=== PATIENT | female | born 1980 | race Two or more races ===

== ENCOUNTER 2017-07-22 11:17 | Emergency (ER) | payer MEDICAID, OTHER ==
[2017-07-22] MEDS: KETOROLAC 60 MG/2 ML VIAL (J1885) IM (12:36)
[2017-07-22] MEDS: diazePAM 5 MG TAB PO (12:36)
== END 2017-07-22 13:15 | disposition home or self-care (01) ==
LOC: M ED 11:17
DX: M62.838 Other muscle spasm (principal); F17.210 Nicotine dependence, cigarettes, uncomplicated
CPT/HCPCS: J1885

== ENCOUNTER → 2017-08-12 | Outpatient (CLI) | payer OTHER | LOC: M WHC 08:53 | DX: D25.1 Intramural leiomyoma of uterus (principal); R10.2 Pelvic and perineal pain | CPT/HCPCS: 76830 ==

== ENCOUNTER → 2017-08-12 | Outpatient (REF) | payer OTHER ==
[2017-08-12 14:37] LABS: CHLAMYDIA DNA AMPLIFICATION NEGATIVE (NEGATIVE); GC DNA AMPLIFICATION NEGATIVE (NEGATIVE)
== END ==
LOC: M SFHCWAGY 08:51
DX: Z12.4 Encounter for screening for malignant neoplasm of cervix (principal); Z11.3 Encounter for screening for infections with a predominantly sexual mode of transmission
CPT/HCPCS: 87591

== ENCOUNTER → 2018-03-02 | Outpatient (CLI) | payer OTHER | LOC: M PAIN 08:45 | DX: M51.16 Intervertebral disc disorders with radiculopathy, lumbar region (principal); M21.70 Unequal limb length (acquired), unspecified site; F17.210 Nicotine dependence, cigarettes, uncomplicated; Z79.1 Long term (current) use of non-steroidal anti-inflammatories (NSAID); Z87.820 Personal history of traumatic brain injury | CPT/HCPCS: G0463 ==

== ENCOUNTER → 2018-03-16 | Outpatient (CLI) | payer OTHER ==
[~2018-03-16] MED LIST: ISOVUE-M 300 61% 15ML VIAL (Q9967) As Ordered; LIDOCAINE 1% SDV INJ 30 ML VIAL As Ordered; diazePAM 5 MG TAB As Ordered; methylPREDNISolone SUSP 40 MG/ML (DEPO-medrol) VIAL (J1030) As Ordered; oxyCODONE 5MG TAB As Ordered
== END ==
LOC: M PAIN 08:45
DX: M51.16 Intervertebral disc disorders with radiculopathy, lumbar region (principal); F17.210 Nicotine dependence, cigarettes, uncomplicated; M77.32 Calcaneal spur, left foot; M75.32 Calcific tendinitis of left shoulder; B07.0 Plantar wart; J34.2 Deviated nasal septum
CPT/HCPCS: J1030

== ENCOUNTER 2018-04-13 07:06 | Outpatient (RCR) | payer OTHER | END 2018-04-25 | LOC: M PT 07:06 | DX: Z51.89 Encounter for other specified aftercare (principal); M51.16 Intervertebral disc disorders with radiculopathy, lumbar region; M54.16 Radiculopathy, lumbar region; M21.70 Unequal limb length (acquired), unspecified site; M47.816 Spondylosis without myelopathy or radiculopathy, lumbar region | CPT/HCPCS: 97163 ==

== ENCOUNTER 2018-04-27 07:30 | Outpatient (RCR) | payer OTHER | END 2018-05-26 | LOC: M PT 07:30 | DX: Z51.89 Encounter for other specified aftercare (principal); M51.16 Intervertebral disc disorders with radiculopathy, lumbar region; M21.70 Unequal limb length (acquired), unspecified site; M47.816 Spondylosis without myelopathy or radiculopathy, lumbar region; M54.16 Radiculopathy, lumbar region | CPT/HCPCS: 97010 ==

== ENCOUNTER → 2018-04-30 | Outpatient (CLI) | payer OTHER | LOC: M PAIN 15:00 | DX: M51.16 Intervertebral disc disorders with radiculopathy, lumbar region (principal); M46.1 Sacroiliitis, not elsewhere classified; F17.210 Nicotine dependence, cigarettes, uncomplicated; J34.2 Deviated nasal septum; M77.32 Calcaneal spur, left foot | CPT/HCPCS: G0463 ==

== ENCOUNTER → 2018-05-17 | Outpatient (CLI) | payer OTHER ==
[~2018-05-17] MED LIST changes: +BUPIVACAINE HCL 0.25% 30 ML VIAL As Ordered; +TRIAMCINOLONE ACETONIDE SUSP 40 MG/ML VIAL (J3301) As Ordered; -methylPREDNISolone SUSP 40 MG/ML (DEPO-medrol) VIAL (J1030) As Ordered
== END ==
LOC: M PAIN 10:45
DX: G89.29 Other chronic pain (principal); M46.1 Sacroiliitis, not elsewhere classified; M53.88 Other specified dorsopathies, sacral and sacrococcygeal region; F17.210 Nicotine dependence, cigarettes, uncomplicated; Z79.899 Other long term (current) drug therapy; Z87.820 Personal history of traumatic brain injury; Z87.09 Personal history of other diseases of the respiratory system
CPT/HCPCS: J3301

== ENCOUNTER → 2018-06-04 | Outpatient (CLI) | payer OTHER | LOC: M PAIN 09:00 | DX: M51.16 Intervertebral disc disorders with radiculopathy, lumbar region (principal); M46.1 Sacroiliitis, not elsewhere classified; F17.210 Nicotine dependence, cigarettes, uncomplicated; J34.2 Deviated nasal septum; M77.32 Calcaneal spur, left foot; M75.32 Calcific tendinitis of left shoulder; B07.0 Plantar wart; Z79.899 Other long term (current) drug therapy | CPT/HCPCS: G0463 ==

== ENCOUNTER → 2018-10-19 | Outpatient (CLI) | payer OTHER ==
[~2018-10-19] MED LIST changes: -BUPIVACAINE HCL 0.25% 30 ML VIAL As Ordered; -ISOVUE-M 300 61% 15ML VIAL (Q9967) As Ordered; -LIDOCAINE 1% SDV INJ 30 ML VIAL As Ordered; +NAPR250T4 PO; -TRIAMCINOLONE ACETONIDE SUSP 40 MG/ML VIAL (J3301) As Ordered; +VALI5TAB PO; -diazePAM 5 MG TAB As Ordered; -oxyCODONE 5MG TAB As Ordered
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
== END ==
LOC: M PAIN 10:00
PROVIDERS: ATTEND Nurse Practitioner Family
DX: M51.16 Intervertebral disc disorders with radiculopathy, lumbar region (principal); M47.816 Spondylosis without myelopathy or radiculopathy, lumbar region; M46.1 Sacroiliitis, not elsewhere classified; F17.210 Nicotine dependence, cigarettes, uncomplicated; Z79.899 Other long term (current) drug therapy; Z87.820 Personal history of traumatic brain injury

== ENCOUNTER 2018-12-08 16:44 | Emergency (ER) | payer OTHER ==
[~2018-12-08] VITALS: Ht 160 cm; Wt 99.1 kg
[2018-12-08 16:44] VITALS: BP 117/69
[2018-12-08] MEDS ORDERED: GABA-843 (16:52)
[2018-12-08] MEDS ORDERED: ADACEL/BOOSTRIX VACCINE (DIPHTH/PERTUSS/ACELL/TETANUS)0.5ML SYR (90715) IM ONE (17:15)
== END 2018-12-08 17:37 | disposition home or self-care (01) ==
LOC: M ED 16:44
DX: S91.331A Puncture wound without foreign body, right foot, initial encounter (principal); W45.0XXA Nail entering through skin, initial encounter; Y92.099 Unspecified place in other non-institutional residence as the place of occurrence of the external cause; Y93.9 Activity, unspecified; Y99.9 Unspecified external cause status; M51.86 Other intervertebral disc disorders, lumbar region; Z72.0 Tobacco use; Z79.899 Other long term (current) drug therapy

== ENCOUNTER 2020-03-23 13:36 | Emergency (ER) | payer OTHER ==
[~2020-03-23] VITALS: Ht 160 cm; Wt 95.0 kg
[~2020-03-23 13:36] MED LIST changes: +GABA-843
[2020-03-23] MEDS ORDERED: NAPR220C14 PO (13:43)
[2020-03-23] MEDS ORDERED: VENTAER INH (14:48)
[2020-03-23] MEDS ORDERED: BENZ200C70 PO (14:48)
[2020-03-23] MEDS ORDERED: MUCI600T31 PO (14:48)
[2020-03-23] MEDS ORDERED: AUGM875T28 PO (14:48)
[2020-03-23 15:35] VITALS: BP 134/90
== END 2020-03-23 15:40 | disposition home or self-care (01) ==
LOC: M ED 13:36
DX: H66.001 Acute suppurative otitis media without spontaneous rupture of ear drum, right ear (principal); J20.9 Acute bronchitis, unspecified; F17.200 Nicotine dependence, unspecified, uncomplicated

== ENCOUNTER 2020-10-01 11:23 | Emergency (ER) | payer OTHER ==
[~2020-10-01] VITALS: Ht 160 cm; Wt 98.3 kg
[~2020-10-01 11:23] MED LIST changes: +AUGM875T28 PO; +BENZ200C70 PO; +GABA-282; -GABA-843; +MUCI600T31 PO; +NAPR-849 PO; +NAPR220C14 PO; -NAPR250T4 PO; +VENTAER INH
[2020-10-01 13:10] LABS: BASO # 0.1 10^3/uL (0.0-0.2); BASO % 0.8 % (0.0-1.0); EOS # 0.1 10^3/uL (0.0-0.5); EOS % 1.6 % (0.0-3.0); HEMATOCRIT 38.5 % (36.0-47.0); HEMOGLOBIN 12.4 g/dl (12.0-15.5); LYMPH # 1.8 10^3/uL (1.5-5.0); LYMPH % 20.4 % (24.0-44.0); MEAN CORPUSCULAR HGB CONC 32.2 g/dl (32.0-36.5); MEAN CORPUSCULAR VOLUME 93.2 fl (80.0-96.0); MONO # 0.7 10^3/uL (0.0-0.8); MONO % 7.6 % (2.0-8.0); NEUTROPHILS # 6.2 10^3/uL (1.5-8.5); NEUTROPHILS % 69.3 % (36.0-66.0); PLATELET COUNT, AUTOMATED 335 10^3/uL (150-450); RED BLOOD COUNT 4.13 10^6/uL (4.00-5.40); WHITE BLOOD COUNT 8.9 10^3/uL (4.0-10.0)
[2020-10-01] MEDS ORDERED: KETOROLAC TROMETHAMINE 10 MG TAB PO ONE (13:25)
--- NOTE | 2020-10-01 13:28 | REP ---
INDICATION: R flank pain, ro renal stone COMPARISON: None TECHNIQUE: Axial noncontrast images from the lung bases to the pubic symphysis with coronal and sagittal reformations. This CT examination was performed using the following dose reduction techniques: Automated exposure control, adjustment of mA and/or kv according to the patient's size, and use of iterative reconstruction technique. FINDINGS: Lung bases are clear. Visualized heart and pericardium normal. Liver, spleen, pancreas, gallbladder, bilateral adrenal glands and kidneys are normal. Specifically, no perinephric stranding, hydroureteronephrosis or obstructing ureteral calculus identified. A single 1 mm calculus in the right kidney cannot be excluded (series 201; image 60). The enteric system is unremarkable and without obstruction or acute inflammatory process. Normal terminal ileum and appendix identified in the right lower quadrant. Diverticulosis is appreciated without obvious acute diverticulitis. Stable fat containing periumbilical hernia noted. Pelvis demonstrates normal bladder and age-appropriate uterus/adnexa. Innumerable calcifications in the pelvis are similar to prior examination and likely represent phleboliths. No ascites. No free air. No adenopathy. No focal inflammatory stranding. Abdominal aorta without aneurysm. Musculoskeletal structures are intact and without acute osseous abnormality. IMPRESSION: 1. No obvious acute abdominopelvic pathology appreciated. 2. Diverticulosis without obvious acute diverticulitis. 3. Innumerable calcifications in the pelvis likely represent phleboliths. <Electronically signed by Fernandez Turner > 10/01/20 [id number]
[2020-10-01 13:49] LABS: ALBUMIN 3.7 GM/DL (3.2-5.2); ALT/SGPT 16 U/L (12-78); BILIRUBIN,DIRECT < 0.1 MG/DL (0.0-0.2); BILIRUBIN,TOTAL 0.1 MG/DL (0.2-1.0); LIPASE 96 U/L (73-393); TOTAL PROTEIN 6.9 GM/DL (6.4-8.2)
[2020-10-01 14:00] VITALS: BP 129/83
== END 2020-10-01 14:02 | disposition home or self-care (01) ==
LOC: M ED 11:23
DX: K57.30 Diverticulosis of large intestine without perforation or abscess without bleeding (principal); J45.909 Unspecified asthma, uncomplicated; Z87.442 Personal history of urinary calculi; F17.200 Nicotine dependence, unspecified, uncomplicated; Z79.899 Other long term (current) drug therapy

== ENCOUNTER 2020-10-05 21:26 | Emergency (ER) | payer OTHER ==
[~2020-10-05] VITALS: Ht 160 cm; Wt 97.7 kg
[2020-10-06] MEDS ORDERED: KETOROLAC 60MG 2ML VIAL IM ONE (00:25)
[2020-10-06] MEDS ORDERED: diazePAM 10 MG TAB PO ONE (00:25)
[2020-10-06] MEDS ORDERED: LIDOCAINE 5% (LIDODERM) PATCH TD ONE (00:25)
[2020-10-06] MEDS ORDERED: ASPE4PAD TOP (00:27)
[2020-10-06] MEDS ORDERED: ROBA750T4 PO (00:27)
[2020-10-06] MEDS ORDERED: NAPR-837 PO (00:27)
[2020-10-06 00:55] VITALS: BP 120/86
[2020-10-06] MEDS ORDERED: **NOTE PATIENT COMMENT** MISC XX ONE (12:30)
== END 2020-10-06 01:06 | disposition home or self-care (01) ==
LOC: M ED 21:26
DX: M54.6 Pain in thoracic spine (principal); J45.909 Unspecified asthma, uncomplicated; Z79.899 Other long term (current) drug therapy
CPT/HCPCS: 96372; 99283; J1885

== ENCOUNTER → 2020-10-17 | Outpatient (CLI) | payer SELFPAY ==
[~2020-10-17] MED LIST changes: +ASPE4PAD TOP; +NAPR-837 PO; +ROBA750T4 PO
== END ==
LOC: M LABSMTC 13:16
PROVIDERS: ATTEND Pediatrics
DX: Z11.52 Encounter for screening for COVID-19 (principal)

== ENCOUNTER 2021-03-02 18:57 | Inpatient (IN) | payer OTHER ==
[~2021-03-02] VITALS: Ht 160 cm; Wt 91.9 kg
[2021-03-02 20:20] LABS: BASO % 0.2 % (0.0-1.0); EOS % 0.1 % (0.0-3.0); HEMATOCRIT 38.8 % (36.0-47.0); HEMOGLOBIN 12.9 g/dl (12.0-15.5); LYMPH # 1.1 10^3/uL (1.5-5.0); LYMPH % 5.5 % (24.0-44.0); MEAN CORPUSCULAR HEMOGLOBIN 31.7 pg (27.0-33.0); MEAN CORPUSCULAR HGB CONC 33.2 g/dl (32.0-36.5); MEAN CORPUSCULAR VOLUME 95.3 fl (80.0-96.0); MONO # 1.2 10^3/uL (0.0-0.8); MONO % 6.3 % (2.0-8.0); NEUTROPHILS # 17.1 10^3/uL (1.5-8.5); NEUTROPHILS % 87.4 % (36.0-66.0); PLATELET COUNT, AUTOMATED 305 10^3/uL (150-450); RED BLOOD COUNT 4.07 10^6/uL (4.00-5.40); WHITE BLOOD COUNT 19.5 10^3/uL (4.0-10.0)
[2021-03-02 20:36] LABS: ALBUMIN 3.9 GM/DL (3.2-5.2); ALT/SGPT 17 U/L (12-78); BILIRUBIN,DIRECT 0.2 MG/DL (0.0-0.2); BILIRUBIN,TOTAL 0.6 MG/DL (0.2-1.0); BLOOD UREA NITROGEN 13 MG/DL (7-18); CALCIUM LEVEL 9.2 MG/DL (8.5-10.1); CARBON DIOXIDE LEVEL 27 MEQ/L (21-32); CHLORIDE LEVEL 104 MEQ/L (98-107); CREATININE FOR GFR 0.68 MG/DL (0.55-1.30); GLOMERULAR FILTRATION RATE > 60.0 (>58); GLUCOSE, FASTING 115 MG/DL (70-100); LIPASE 41 U/L (73-393); POTASSIUM SERUM 3.4 MEQ/L (3.5-5.1); SODIUM LEVEL 138 MEQ/L (136-145); TOTAL PROTEIN 7.5 GM/DL (6.4-8.2)
[2021-03-02 20:51] LABS: HCG, SERUM QUALITATIVE NEGATIVE (NEGATIVE)
[2021-03-02] MEDS ORDERED: MORPHINE 4 MG/ML 1ML VIAL/SYRINGE (J2270) IV ONE (21:55)
[2021-03-02] MEDS ORDERED: ONDANSETRON 4MG/2ML VIAL IV ONE (21:55)
--- NOTE | 2021-03-02 21:58 | REPVR ---
PROCEDURE INFORMATION: Exam: CT Abdomen And Pelvis Without Contrast Exam date and time: 03/02/2021 9:19 PM Age: 40 years old Clinical indication: Abdominal pain; Additional info: Lower abdominal pain TECHNIQUE: Imaging protocol: Computed tomography of the abdomen and pelvis without contrast. Axial, coronal and sagittal reformatted images were created and reviewed. Radiation optimization: All CT scans at this facility use at least one of these dose optimization techniques: automated exposure control; mA and/or kV adjustment per patient size (includes targeted exams where dose is matched to clinical indication); or iterative reconstruction. COMPARISON: CT ABD PELVIS W/O CONTRAST 10/01/2020 1:01 PM FINDINGS: Lungs: Right lower lobe calcified granuloma. Liver: Unremarkable. Gallbladder and bile ducts: No radiodense gallstones. No biliary ductal dilatation. Pancreas: Unremarkable. Spleen: Unremarkable. Adrenal glands: Normal. No mass. Kidneys and ureters: Nonobstructing right renal calculus. No hydronephrosis. Stomach and bowel: Focal area of wall thickening and associated pericolonic stranding in the sigmoid colon in a region containing multiple diverticula. No obstruction. No pneumatosis. Appendix: Normal. Intraperitoneal space: Small amount of loculated fluid and extraluminal gas adjacent to the inflamed segment of sigmoid colon, consistent with perforation. 4.7 x 2.2 cm loculated air-fluid collection along the anterior aspect of the left psoas muscle belly (axial image 104). Vasculature: Unremarkable. No aneurysm. Lymph nodes: No pathologically enlarged lymph nodes. Urinary bladder: Unremarkable as visualized. Reproductive: Unremarkable. Bones/joints: No acute osseous abnormality. Mild degenerative changes. Soft tissues: Grossly unremarkable. IMPRESSION: 1. Perforated sigmoid diverticulitis with questionable small developing diverticular abscess, as described above. 2. Additional findings, as above. Electronically signed by: Buzz Mcfarland On 03/02/2021 21:58:28 PM
[2021-03-02] MEDS ORDERED: HOME MED LIST COMPLETE! XX SCH (22:30)
[2021-03-02] MEDS ORDERED: KETOROLAC 30 MG/ML 1ML VIAL IV PRN (22:50)
[2021-03-02] MEDS ORDERED: ONDANSETRON 4MG/2ML VIAL IV PRN (22:50)
--- NOTE | 2021-03-02 22:54 | HPEPDOC ---
[facility] Medical History & Physical Date of Admission Mar 02, 2021 Date of Service: Mar 02, 2021 Attending Physician: GISELLE LIND MD History and Physical CHIEF COMPLAINT: [40 y/o female c/o lower abdominal pain x4 days] HISTORY OF PRESENT ILLNESS: [This is a 40 y/o female with a pmh of divertic ulosis who presents to the ED with a cc of lower abdominal pain that has been worsening for 4 days. Patient states that her pain seems to be worse with food and has subsequently developed a very poor appetite and has not been drinking much either. Patient states that she eventually developed vomiting but this has subsided some. Patient states that she has had episodes of abdominal pain in the past, but never this severe, and those past episodes were typically self limiting. Patient states that she has also experienced some fevers and chills on and off. Patient, at the time of my exam, denies any cough, chest pain, sob, wheezing, diarrhea, constipation, pedal edema. CT imaging performed in the ED shows diverticulitis with perforation and possible forming abscess.] PAST MEDICAL HISTORY: 1. [See HPI PAST SURGICAL HISTORY: 1. [C Section]. 2. [Tubal ligation]. 3. [Tonsillectomy]. SOCIAL HISTORY: Tobacco use:[Current 1/2 ppd smoker] ETOH: [Denies] Illicit drug use: [Denies] FAMILY HISTORY: Reviewed - none pertinent ALLERGIES: Please see below. REVIEW OF SYSTEMS: CONSTITUTIONAL: [Admits to subjective fevers, chills]. HEENT: [Denies uri sx]. CARDIOVASCULAR: [Denies chest pain, palpitations]. RESPIRATORY: [Denies sob, wheezing]. GASTROINTESTINAL: [See HPI]. GENITOURINARY: [Denies dysuria]. SKIN: [Denies rash]. MUSCULOSKELETAL: [Denies acute joint/back pain]. NEUROLOGICAL: [Denies syncope, paresthesias]. ENDOCRINE: [Denies hx of DM]. HEMATOLOGIC/LYMPHATIC: [Denies easy bruising]. HOME MEDICATIONS: Please see below. PHYSICAL EXAMINATION: VITAL SIGNS: Please see below. GENERAL APPEARANCE: [This is a 40 y/o female who is resting in bed. She does not appear to be in any acute distress.]. HEENT: [No mass or lesion. EOMI. No scleral icterus. Nares patent. Oral mucosa moist]. CARDIOVASCULAR: [Regular rate, rhythm. No murmurs, rubs, gallops]. LUNGS: [Good air flow b/l. No wheezing, rales, rhonchi]. ABDOMEN: [Soft, tender to RLQ and LLQ.]. MUSCULOSKELETAL: [No joint deformity]. EXTREMITIES: [No pedal edema appreciated. No overlying skin changes. Pulses intact.]. NEUROLOGICAL: [Speech clear. A+Ox3. No focal deficits]. PSYCHIATRIC: [Mood and affect appear appropriate.]. LABORATORY DATA: See below. IMAGING: [CT Abd/pelvis: FINDINGS: Lungs: Right lower lobe calcified granuloma. Liver: Unremarkable. Gallbladder and bile ducts: No radiodense gallstones. No biliary ductal dilatation. Pancreas: Unremarkable. Spleen: Unremarkable. Adrenal glands: Normal. No mass. Kidneys and ureters: Nonobstructing right renal calculus. No hydronephrosis. Stomach and bowel: Focal area of wall thickening and associated pericolonic stranding in the sigmoid colon in a region containing multiple diverticula. No obstruction. No pneumatosis. Appendix: Normal. Intraperitoneal space: Small amount of loculated fluid and extraluminal gas adjacent to the inflamed segment of sigmoid colon, consistent with perforation. 4.7 x 2.2 cm loculated air-fluid collection along the anterior aspect of the left psoas muscle belly (axial image 104). Vasculature: Unremarkable. No aneurysm. Lymph nodes: No pathologically enlarged lymph nodes. Urinary bladder: Unremarkable as visualized. Reproductive: Unremarkable. Bones/joints: No acute osseous abnormality. Mild degenerative changes. Soft tissues: Grossly unremarkable. IMPRESSION: 1. Perforated sigmoid diverticulitis with questionable small developing diverticular abscess, as described above. 2. Additional findings, as above. ] MICROBIOLOGY: Please see below. ASSESSMENT: [This is a 40 y/o female with a pmh of diverticulosis who presents to the ED with a cc of lower abdominal pain that has been worsening for [address] imaging performed in the ED shows diverticulitis with perforation and possible forming abscess.]. . PLAN: 1. [Diverticulitis with perforation and possible abscess - General surgery, Dr. Silva, was consulted in the emergency department. Assistance is greatly appreciated. - Will keep patient NPO for now for possible procedure - Will give IVF while patient is NPO - Begin zosyn q6 for microbial coverage - Pain control with toradol, morphine - Zofran for nausea - Admit to med surg for tx DVT prophylaxis - mechanical d/t possible procedure]. Vital Signs Vital Signs Date Time Temp Pulse Resp B/P (MAP) Pulse Ox O2 Delivery O2 Flow Rate FiO2 03/02/21 22:27 75 16 98 Room Air 03/02/21 22:02 148/93 03/02/21 18:58 98.1 Laboratory Data Labs 24H Laboratory Tests 2 03/02/21 19:58: Immature Granulocyte % (Auto) 0.5, Neutrophils (%) (Auto) 87.4H, Lymphocytes (%) (Auto) 5.5L, Monocytes (%) (Auto) 6.3, Eosinophils (%) (Auto) 0.1, Basophils (%) (Auto) 0.2, Neutrophils # (Auto) 17.1H, Lymphocytes # (Auto) 1.1L, Monocytes # (Auto) 1.2H, Eosinophils # (Auto) 0.0, Basophils # (Auto) 0.0, Nucleated Red Blood Cells % (auto) 0.0, Urine Color CHARAN, Urine Appearance HAZY, Urine pH 5.0, Urine Specific [place] 1.034, Urine Protein 2+H, Urine Glucose (UA) 1+H, Urine Ketones 1+H, Urine Blood NEGATIVE, Urine Nitrite NEGATIVE, Urine Bilirubin 2+H, Urine Urobilinogen 4.0H, Urine Leukocyte Esterase NEGATIVE, Urine WBC (Auto) 3, Urine RBC (Auto) 7H, Urine Hyaline Casts (Auto) 0, Urine Bacteria (Auto) 1+H, Urine Squamous Epithelial Cells 6, Urine Mucus (Auto) LARGE, Urine Sperm (Auto) , Anion Gap 7L, Glomerular Filtration Rate > 60.0, Calcium Level 9.2, Total Bilirubin 0.6, Direct Bilirubin 0.2, Aspartate Amino Transf (AST/SGOT) 7, Alanine Aminotransferase (ALT/SGPT) 17, Alkaline Phosphatase 88, Total Protein 7.5, Albumin 3.9, Albumin/Globulin Ratio 1.1L, Lipase 41L, Human Chorionic Gonadotropin, Qual NEGATIVE 03/02/21 21:45: POC Lactate (Misc Panel) 0.49 CBC/BMP Laboratory Tests 03/02/21 19:58 Home Medications Scheduled Naproxen Sodium (Aleve) 220 Mg Capsule, 220 MG PO DAILY Allergies Coded Allergies: No Known Allergies (Unverified , 12/08/18) A-FIB/CHADSVASC A-FIB History Current/History of A-Fib/PAF?: No ROSALINE RIOS Mar 02, 2021 22:54
[2021-03-02] MEDS: NS 1,000 ML IV SCH (23:34)
[2021-03-02] MEDS: PIPERACILLIN/TAZOBACTAM SOD 3.375 GM in D5W MINI-BAG PLUS 50 ML IV SCH (23:34)
[2021-03-03 01:04] LABS: RSV AMPLIFICATION NEGATIVE (NEGATIVE)
[2021-03-03 01:25] VITALS: BP 115/66
[2021-03-03] MEDS: PIPERACILLIN/TAZOBACTAM SOD 3.375 GM in D5W MINI-BAG PLUS 50 ML IV SCH ×4 (05:45→23:40)
[2021-03-03] MEDS: MORPHINE 2 MG/ML 1ML VIAL (J2270) IV PRN (05:46)
[2021-03-03 06:00] VITALS: BP 132/69
[2021-03-03 06:54] LABS: HEMATOCRIT 33.8 % (36.0-47.0); HEMOGLOBIN 11.2 g/dl (12.0-15.5); MEAN CORPUSCULAR HEMOGLOBIN 31.6 pg (27.0-33.0); MEAN CORPUSCULAR HGB CONC 33.1 g/dl (32.0-36.5); MEAN CORPUSCULAR VOLUME 95.5 fl (80.0-96.0); PLATELET COUNT, AUTOMATED 274 10^3/uL (150-450); RED BLOOD COUNT 3.54 10^6/uL (4.00-5.40); WHITE BLOOD COUNT 16.4 10^3/uL (4.0-10.0)
[2021-03-03] MEDS: NS 1,000 ML IV SCH (06:57)
[2021-03-03 07:16] LABS: ALBUMIN 2.8 GM/DL (3.2-5.2); ALT/SGPT 12 U/L (12-78); BILIRUBIN,TOTAL 0.6 MG/DL (0.2-1.0); BLOOD UREA NITROGEN 14 MG/DL (7-18); CALCIUM LEVEL 8.4 MG/DL (8.5-10.1); CARBON DIOXIDE LEVEL 22 MEQ/L (21-32); CHLORIDE LEVEL 112 MEQ/L (98-107); GLOMERULAR FILTRATION RATE > 60.0 (>58); GLUCOSE, FASTING 103 MG/DL (70-100); MAGNESIUM LEVEL 2.1 MG/DL (1.8-2.4); POTASSIUM SERUM 3.3 MEQ/L (3.5-5.1); SODIUM LEVEL 139 MEQ/L (136-145); TOTAL PROTEIN 6.4 GM/DL (6.4-8.2)
[2021-03-03] MEDS ORDERED: GLUCAGON INJ 1MG VIAL SC PRN (07:55)
[2021-03-03] MEDS ORDERED: GLUCOSE 4GM CHEW TABLET PO PRN (07:55)
[2021-03-03] MEDS ORDERED: DEXTROSE 50% 50 ML SYRINGE IV PRN (07:55)
[2021-03-03] MEDS ORDERED: KCL 10MEQ/100ML SWI (KRUN) 10 MEQ in IV 1 EA IV SCH (09:00)
[2021-03-03] MEDS: KCL 40MEQ IN D5/0.45NS 1000ML 1,000 ML IV SCH ×3 (09:04→23:25)
[2021-03-03] MEDS: KETOROLAC 30 MG/ML 1ML VIAL IV SCH ×3 (09:54→23:20)
[2021-03-03] MEDS ORDERED: PROMETHAZINE INJ 25 MG/ML VIAL (J2550) IV ONE (10:00)
--- NOTE | 2021-03-03 10:59 | IPN ---
PROGRESS NOTE DATE: 03/03/2021 SUBJECTIVE: Patient complains of persistent nausea and abdominal discomfort, especially in the left lower quadrant. No vomiting. No fever or chills overnight. Patient is tearful, crying at the bedside. Complains of some anxiety and feeling overwhelmed. She denies any chill. No other issues per nursing overnight. OBJECTIVE: VITAL SIGNS: Temperature 98.8, pulse 75 sinus rhythm, respiratory rate 18, blood pressure 132/60, 94% on room air. GENERAL: Patient is crying at the bedside. No respiratory distress. HEENT: No jugular venous distention (JVD) or thyromegaly. Moist mucous membranes. LUNGS: Clear to auscultation. No wheezing, rales or rhonchi. HEART: S1, S2. Sinus rhythm. ABDOMEN: Soft. Tender in the left lower quadrant greater than right lower quadrant. No rebound or guarding. Positive bowel sounds. No hepatosplenomegaly. EXTREMITIES: No cyanosis, clubbing or pitting edema. LABORATORY DATA: Notable for potassium of 3.3. Decreased white count down to 16.4 from 19.5 with a neutrophilic shift. CT abdomen and pelvis showed diverticulitis with early abscess and perforation. ASSESSMENT: This is a 40-year-old female admitted on 03/02/2021 with past medical history significant for diverticulosis in the past, section, tubal ligation and tonsillectomy, presented with four day history of worsening abdominal pain, bilateral lower quadrants, with nausea, vomiting and subjective fevers at home. Patient was found to have perforated diverticulitis with early abscess, admitted for intravenous (IV) antibiotics and surgical management. IMPRESSION: Perforated diverticulitis with early abscess. Patient is admitted with IV antibiotics, Protonix, Toradol, Phenergan and IV fluids. General surgeon has been consulted, recommended drain to be placed by interventional radiology (IR) in the morning. Compression stockings for deep venous thrombosis (DVT) prophylaxis. Monitor electrolytes. Continue with as needed pain medications with morphine.
--- NOTE | 2021-03-03 11:28 | CR.PDOC ---
General Surgery Consultation Date of Consultation 03/03/21 History and Physical CONSULT REPORT FOR: hospitalist service REASON FOR CONSULTATION: Abdominal pain, acute diverticulitis HISTORY OF PRESENT ILLNESS: Patient is a 40-year-old female who presented herself to the emergency department last night with complaints of ongoing abdominal pain since about Thursday or Thursday. She reports gradual building up of bilateral lower abdominal pain which worsened about into Thursday. This is associated with sensation of chills, probably low-grade fever. She also reports some dysuria but no hematuria. She was nauseated and was throwing up. Pain is reported to be sharp mainly at the suprapubic, bilateral lower abdomen with dif ficulty maintaining position. She reports passing flatus and did report having small bowel movements Thursday morning. She had a prior episode of noncomplicated diverticulitis back in September for which she was seen in the emergency room. She reports an almost similar presentation that time though the pain this time is much worse and mainly located in the lower abdomen. She improved with oral antibiotics as outpatient therapy, did not follow-up with anybody with regards to this. She has no prior colonoscopy. She denies any significant family or personal history for colorectal malignancy or inflammatory bowel disease. In the emergency room she was worked up then noted to have evidence for acute diverticulitis with pericolonic fluid collection consistent with a forming abscess. She was subsequently admitted overnight and started on IV antibiotics. I was asked to see the patient for further recommendations and management. PAST MEDICAL HISTORY: 1. Lower back pain, slipped disks. 2. Migraines PAST SURGICAL HISTORY: INCLUDES: 1. Prior section 2. Tubal ligation 3. Tonsillectomy PREVIOUS ANESTHESIA REACTIONS: Denies ALLERGIES: Please see below. FAMILY HISTORY: Denies any significant family history for colorectal malignancy, inflammatory bowel disease. HOME MEDICATIONS: Please see below. REVIEW OF SYSTEMS: GENERAL: Reports chills, maybe low-grade fever, anorexia for the past 4 days. HEENT: Denies problems with vision or hearing. NECK: Denies any neck pain CARDIOVASCULAR: Denies chest pain and palpitations. MUSCULOSKELETAL: Reports low back pain. SKIN: Denies rash. NEUROLOGIC: Occasional migraines, none recently. HEMATOLOGY/ONCOLOGY: Denies bleeding or clotting disorder. HEART: Denies any chest pains, palpitations, paroxysmal dyspnea, orthopnea. PULMONARY: Denies chronic cough, dyspnea and wheezing. GASTROINTESTINAL: See HPI. GENITOURINARY: Reports dysuria. ENDOCRINE: Denies polydipsia, polyphagia, polyuria, heat or cold intolerance. INFECTIOUS: Denies any recent upper respiratory tract infection, UTI, need for use of antibiotics. NUTRITION: Reports anorexia. PHYSICAL EXAMINATION: VITALS SIGNS: Please see below. GENERAL APPEARANCE: Patient seen laying on her left side, anxious in appearance, was actually crying a bit. SKIN: Warm and dry. HEENT: Normocephalic, atraumatic. [place] palpebral conjunctiva, anicteric sclerae. Lips and mucosa appear moist. NECK: Supple, no thyromegaly. No obvious jugular venous distention. LUNGS: Clear to auscultation bilaterally. No wheezing appreciated. HEART: No wall abnormalities. Regular rate and rhythm with no murmurs appreciated. ABDOMEN: Abdomen is obese, soft, nondistended. She has a prior Pfannenstiel incision. No incisional or umbilical or groin hernias appreciated. She is mostly tender over the bilateral suprapubic area also in the left lower quadrant area, mild guarding nontender in the upper abdomen. EXTREMITIES: No significant extremity edema ANCILLARIES: Significant for leukocytosis WBC is 19.5 on presentation repeat this morning 16.4. LABORATORY DATA: Please see below. IMAGING STUDIES: CT abdomen and pelvis. Read by the radiologist as perforated sigmoid diverticulitis with questionable small developing diverticular abscess measures 4.7 x 2.2 cm loculated air-fluid collection along anterior aspect of the left psoas muscle. IMPRESSION AND PLAN: Acute diverticulitis with abscess Patient with recurrent acute diverticulitis, this time with mildly complicated presentation with the presence of an abscess. She has improved with IV fluid hydration and starting IV antibiotics and a short period of bowel rest. Reported last night to be very tender in my exam this morning, has mild left upper tenderness over the bilateral suprapubic area immediately and also at the left lower quadrant area, minimal guarding. Afebrile here in her hospital stay. She still has significant leukocytosis of 16,000. She does not have any free perforation or generalized peritonitis. She does not look terribly ill after starting her on IV antibiotics. Suggest to get radiology to drain the fluid collection behind the sigmoid and, in front of the psoas muscle probably more amenable to CT-guided drainage than ultrasound-guided drainage. Once improved she probably may need to go home with a drain depending on the amount of collection, character of drainage and she could follow up with me in the clinic. She will need interval colonoscopy usually in about 6 to 8 weeks. She has rec urrent diverticulitis and the second 1 is complicated. Depending on her course, residual symptoms, she should be on a high-fiber diet with fiber supplementation. If she continues to recur may require interval sigmoid colectomy down the road but right now does not need any emergent or urgent surgical intervention unless, the abscess is not amenable to percutaneous drainage. I will follow along and set her up for percutaneous drainage with radiology tomorrow. Vital Signs Vital Signs Date Time Temp Pulse Resp B/P (MAP) Pulse Ox O2 Delivery O2 Flow Rate FiO2 03/03/21 06:00 98.8 75 18 132/69 (90) 94 Room Air I&Os I&O- Last 24 Hours up to 6 AM 03/03/21 06:00 Intake Total 350 ml Output Total 150 ml Balance 200 ml Laboratory Data Labs 24H Laboratory Tests 2 03/02/21 19:58: Immature Granulocyte % (Auto) 0.5, Neutrophils (%) (Auto) 87.4H, Lymphocytes (%) (Auto) 5.5L, Monocytes (%) (Auto) 6.3, Eosinophils (%) (Auto) 0.1, Basophils (%) (Auto) 0.2, Neutrophils # (Auto) 17.1H, Lymphocytes # (Auto) 1.1L, Monocytes # (Auto) 1.2H, Eosinophils # (Auto) 0.0, Basophils # (Auto) 0.0, Nucleated Red Blood Cells % (auto) 0.0, Urine Color CHARAN, Urine Appearance HAZY, Urine pH 5.0, Urine Specific [place] 1.034, Urine Protein 2+H, Urine Glucose (UA) 1+H, Urine Ketones 1+H, Urine Blood NEGATIVE, Urine Nitrite NEGATIVE, Urine Bilirubin 2+H, Urine Urobilinogen 4.0H, Urine Leukocyte Esterase NEGATIVE, Urine WBC (Auto) 3, Urine RBC (Auto) 7H, Urine Hyaline Casts (Auto) 0, Urine Bacteria (Auto) 1+H, Urine Squamous Epithelial Cells 6, Urine Mucus (Auto) LARGE, Urine Sperm (Auto) , Anion Gap 7L, Glomerular Filtration Rate > 60.0, Calcium Level 9.2, Total Bilirubin 0.6, Direct Bilirubin 0.2, Aspartate Amino Transf (AST/SGOT) 7, Alanine Aminotransferase (ALT/SGPT) 17, Alkaline Phosphatase 88, Total Protein 7.5, Albumin 3.9, Albumin/Globulin Ratio 1.1L, Lipase 41L, Human Chorionic Gonadotropin, Qual NEGATIVE 03/02/21 21:45: POC Lactate (Misc Panel) 0.49 03/02/21 23:27: Coronavirus (COVID-19)(PCR) NEGATIVE, Influenza Type A (RT-PCR) NEGATIVE, Influenza Type B (RT-PCR) NEGATIVE, Respiratory Syncytial Virus (PCR) NEGATIVE 03/03/21 06:17: Nucleated Red Blood Cells % (auto) 0.0, Anion Gap 5L, Glomerular Filtration Rate > 60.0, Calcium Level 8.4L, Total Bilirubin 0.6, Aspartate Amino Transf (AST/SGOT) 7, Alanine Aminotransferase (ALT/SGPT) 12, Alkaline Phosphatase 75, Total Protein 6.4, Albumin 2.8#L, Albumin/Globulin Ratio 0.8L, Magnesium Level 2.1 CBC/BMP Laboratory Tests 03/02/21 19:58 03/03/21 06:17 Home Medications Scheduled Naproxen Sodium (Aleve) 220 Mg Capsule, 220 MG PO DAILY, (Reported) Allergies Coded Allergies: No Known Allergies (Unverified , 12/08/18) LUNA AQUINO MD Mar 03, 2021 11:28
[2021-03-03 14:00] VITALS: BP 114/66
[2021-03-03] MEDS ORDERED: PROMETHAZINE INJ 25 MG/ML VIAL (J2550) IV PRN (14:00)
[2021-03-03 22:00] VITALS: BP 113/72
[2021-03-04] MEDS: KETOROLAC 30 MG/ML 1ML VIAL IV SCH ×4 (04:22→21:02)
[2021-03-04] MEDS: PIPERACILLIN/TAZOBACTAM SOD 3.375 GM in D5W MINI-BAG PLUS 50 ML IV SCH ×3 (06:10→17:16)
[2021-03-04] MEDS: KCL 40MEQ IN D5/0.45NS 1000ML 1,000 ML IV SCH ×4 (06:12→22:17)
[2021-03-04 07:12] LABS: HEMATOCRIT 32.6 % (36.0-47.0); HEMOGLOBIN 10.8 g/dl (12.0-15.5); MEAN CORPUSCULAR HEMOGLOBIN 31.2 pg (27.0-33.0); MEAN CORPUSCULAR HGB CONC 33.1 g/dl (32.0-36.5); MEAN CORPUSCULAR VOLUME 94.2 fl (80.0-96.0); PLATELET COUNT, AUTOMATED 316 10^3/uL (150-450); RED BLOOD COUNT 3.46 10^6/uL (4.00-5.40)
[2021-03-04 07:28] LABS: INR 1.22; PROTHROMBIN TIME 15.8 SECONDS (12.7-14.5)
[2021-03-04 07:29] LABS: PARTIAL THROMBOPLASTIN TIME 41.6 SECONDS (25.9-37.0)
[2021-03-04 07:34] LABS: ERYTHROCYTE SEDIMENTATION RATE 74 mm/hr (0-20)
[2021-03-04 07:43] LABS: ALBUMIN 2.7 GM/DL (3.2-5.2); ALT/SGPT 12 U/L (12-78); BILIRUBIN,TOTAL 0.5 MG/DL (0.2-1.0); BLOOD UREA NITROGEN 11 MG/DL (7-18); CARBON DIOXIDE LEVEL 23 MEQ/L (21-32); CHLORIDE LEVEL 111 MEQ/L (98-107); CREATININE FOR GFR 0.49 MG/DL (0.55-1.30); GLOMERULAR FILTRATION RATE > 60.0 (>58); GLUCOSE, FASTING 104 MG/DL (70-100); MAGNESIUM LEVEL 2.1 MG/DL (1.8-2.4); SODIUM LEVEL 139 MEQ/L (136-145); TOTAL PROTEIN 5.9 GM/DL (6.4-8.2)
[2021-03-04] MEDS ORDERED: NALOXONE INJ 0.4MG/1ML VIAL (J2310 PER 1MG) IV PRN (08:55)
[2021-03-04] MEDS ORDERED: PERCOCET 5MG/325MG TAB PO ONE (08:55)
[2021-03-04] MEDS ORDERED: SODIUM BICARBONATE 8.4% INJ 50MEQ 50 ML VIAL As Ordered ONE (11:36)
[2021-03-04] MEDS ORDERED: LIDOCAINE 1% MDV 20ML VIAL As Ordered ONE (11:37)
--- NOTE | 2021-03-04 12:17 | IPNPDOC ---
Date Seen The patient was seen on 03/04/21. Progress Note S: c/o 7/10 pain right LQ abd. tmax 100.2. denies nausea/vomiting. able to sleep ok. no other new c/o O: PE: Vitals: see below GENERAL: asleep, but arousable. no distress. appropriate. HEENT: no conversational dyspnea , able to complete her sentences No jugular venous distention (JVD) or thyromegaly. Moist mucous membranes.no stridor no carotid bruits. LUNGS: aebe. Clear to auscultation. No wheezing, rales or rhonchi. HEART: S1, S2. Sinus rhythm.no tachycardic ABDOMEN: Soft. nondistended. Tender in the left lower quadrant greater than right lower quadrant. No rebound or guarding. Positive bowel sounds. No hepatosplenomegaly. EXTREMITIES: No cyanosis, clubbing or pitting edema. LABORATORY DATA:see chart CT abdomen and pelvis showed diverticulitis with early abscess and perforation. ASSESSMENT: This is a 40-year-old female admitted on 03/02/2021 with past medical history significant for diverticulosis in the past, section, tubal ligation and tonsillectomy, presented with four day history of worsening abdominal pain, bilateral lower quadrants, with nausea, vomiting and subjective fevers at home. Patient was found to have perforated diverticulitis with early abscess, admitted for intravenous (IV) antibiotics and surgical management. PLAN: Perforated diverticulitis with early abscess. DRAIN to be placed by radiology today per Dr. Silva, Surgery's recommendations. continue IV abx, ivfluids, clears, prn pain meds and anti-emetics. Surgery to advance pt's diet. VS, I&O, [facility] Vital Signs/I&O Vital Signs Date Time Temp Pulse Resp B/P (MAP) Pulse Ox O2 Delivery O2 Flow Rate FiO2 03/04/21 11:15 97.4 74 74 98 Room Air 03/03/21 22:00 113/72 (86) I&O- Last 24 Hours up to 6 AM 03/04/21 06:00 Intake Total 990 ml Output Total 0 ml Balance 990 ml Laboratory Data 24H LABS Laboratory Tests 2 03/04/21 06:51: Nucleated Red Blood Cells % (auto) 0.0, Erythrocyte Sedimentation Rate 74H, Prothrombin Time 15.8H, Prothromb Time International Ratio 1.22, Activated Partial Thromboplast Time 41.6H, Anion Gap 5L, Glomerular Filtration Rate > 60.0, Calcium Level 8.0L, Magnesium Level 2.1, Total Bilirubin 0.5, Aspartate Amino Transf (AST/SGOT) 9, Alanine Aminotransferase (ALT/SGPT) 12, Alkaline Phosphatase 79, C-Reactive Protein, Quantitative 16.10H, Total Protein 5.9L, Albumin 2.7L, Albumin/Globulin Ratio 0.8L CBC/BMP Laboratory Tests 03/04/21 06:51 Microbiology Microbiology 03/04/21 Blood Culture, Received Pending 03/04/21 Blood Culture, Received Pending JAYLEEN MURO MD Mar 04, 2021 12:12
--- NOTE | 2021-03-04 13:00 | IPNPDOC ---
Text Note Date of Service The patient was seen on 03/04/21. NOTE General surgery. Dr. Silva The patient is a 40-year-old female who reported to the emergency department 03/02/2021 with abdominal pain and found to have acute diverticulitis with pericolonic fluid collection consistent with forming abscess. This morning, the patient states she is still having abdominal pain worse on the left side. Reports 1 bowel movement this morning. Denies nausea or vomiting. Plan is for placement of percutaneous drain as per IR today. T-max 100.2 03/03/2021 1400 hrs. Lungs clear to auscultation S1-S2 regular rate rhythm Abdomen is soft, tenderness with palpation in the left upper and left lower quadrant. Grimacing noted with palpation in the left lower quadrant. Mild guarding. WBC 14.0, decreased from 16.4 yesterday. Hemoglobin 10.8. ESR 74. CRP 16.10, this is decreased from 19.40 yesterday. Assessment/plan Acute diverticulitis with abscess. The patient is reviewed and examined as per Dr. Silva. IV antibiotics and IV fluids as per hospitalist N.p.o. Plan for IR percutaneous drain placement today. Continue to monitor her improvement post drain placement. Tentative plan for colonoscopy in 6 to 8 weeks. VS,[place], I+O VS, [place], I+O Laboratory Tests 03/04/21 06:51 Vital Signs Date Time Temp Pulse Resp B/P (MAP) Pulse Ox O2 Delivery O2 Flow Rate FiO2 03/04/21 11:15 97.4 74 74 98 Room Air 03/03/21 22:00 113/72 (86) I&O- Last 24 Hours up to 6 AM 03/04/21 06:00 Intake Total 990 ml Output Total 0 ml Balance 990 ml Ann Connelly Mar 04, 2021 13:00
[2021-03-04 13:46] VITALS: BP 106/71
[2021-03-04] MEDS: MORPHINE 2 MG/ML 1ML VIAL (J2270) IV PRN ×2 (17:16→22:18)
--- NOTE | 2021-03-04 17:24 | REP ---
INDICATION: PERFORATED DIVERTICULAR ABSCESS-DRAIN PLACEMENT.. COMPARISON: None. TECHNIQUE: The procedure is performed by CAMERON Malik, under the direct supervision of Dr. Nunez. The risks and benefits of the procedure were explained to the patient and informed consent was obtained both orally and written. Directly prior to the start of the procedure, a formal timeout was done in the exam room. The left sided pelvic abscess was localized using CT guidance. Skin was prepped and draped in the usual sterile fashion. Fifteen ml of buffered lidocaine was used as a local anesthetic. FINDINGS: Using CT guidance a 8 [place] pigtail catheter was inserted and advanced into the pelvic abscess using trocar technique. 13 mL of pus was aspirated and sent to the laboratory for further analysis. The drainage tube was sutured in place, a sterile dressing was applied, and a drainage bag was attached. CT images obtained directly after demonstrated the tube to be in good position. IMPRESSION: CT guided pigtail catheter placement into left pelvic abscess. <Electronically signed by Lucille Parks > 03/04/21 1718 <Electronically signed by Andrew Nunez > 03/04/21 1720
[2021-03-04 22:00] VITALS: BP 109/70
[2021-03-05] MEDS: PIPERACILLIN/TAZOBACTAM SOD 3.375 GM in D5W MINI-BAG PLUS 50 ML IV SCH ×4 (00:31→17:17)
[2021-03-05] MEDS: KETOROLAC 30 MG/ML 1ML VIAL IV SCH ×4 (04:53→21:28)
[2021-03-05] MEDS: PERCOCET 5MG/325MG TAB PO PRN ×2 (04:53→14:17)
[2021-03-05 06:00] VITALS: BP 128/82
[2021-03-05] MEDS: KCL 40MEQ IN D5/0.45NS 1000ML 1,000 ML IV SCH (06:11)
[2021-03-05 06:12] LABS: HEMATOCRIT 31.3 % (36.0-47.0); HEMOGLOBIN 10.4 g/dl (12.0-15.5); MEAN CORPUSCULAR HEMOGLOBIN 31.6 pg (27.0-33.0); MEAN CORPUSCULAR HGB CONC 33.2 g/dl (32.0-36.5); MEAN CORPUSCULAR VOLUME 95.1 fl (80.0-96.0); PLATELET COUNT, AUTOMATED 321 10^3/uL (150-450); RED BLOOD COUNT 3.29 10^6/uL (4.00-5.40); WHITE BLOOD COUNT 7.6 10^3/uL (4.0-10.0)
[2021-03-05 06:45] LABS: ALBUMIN 2.5 GM/DL (3.2-5.2); ALT/SGPT 13 U/L (12-78); BILIRUBIN,TOTAL 0.4 MG/DL (0.2-1.0); BLOOD UREA NITROGEN 9 MG/DL (7-18); CALCIUM LEVEL 8.3 MG/DL (8.5-10.1); CARBON DIOXIDE LEVEL 23 MEQ/L (21-32); CHLORIDE LEVEL 111 MEQ/L (98-107); CREATININE FOR GFR 0.46 MG/DL (0.55-1.30); GLOMERULAR FILTRATION RATE > 60.0 (>58); GLUCOSE, FASTING 110 MG/DL (70-100); MAGNESIUM LEVEL 2.1 MG/DL (1.8-2.4); POTASSIUM SERUM 4.5 MEQ/L (3.5-5.1); SODIUM LEVEL 139 MEQ/L (136-145); TOTAL PROTEIN 5.8 GM/DL (6.4-8.2)
[2021-03-05] MEDS ORDERED: MOM 30ML SUSPENSION UDC PO PRN (08:15)
--- NOTE | 2021-03-05 08:42 | IPNPDOC ---
Text Note Date of Service The patient was seen on 03/05/21. NOTE General surgery. Dr. Silva The patient is a 40-year-old female who reported to the emergency department 03/02/2021 with abdominal pain and found to have acute diverticulitis with pericolonic fluid collection consistent with forming abscess. S/P placement of percutaneous drain as per IR today. Afebrile. VSS Lungs clear to auscultation S1-S2 regular rate rhythm Abdomen is soft, tenderness with palpation in the left lower quadrant. Drain in place. Small amount of drainage is noted in the drainage bag, there is no additional drainage documented in output. WBC 7.6, decreased from 14.0 yesterday. Assessment/plan Acute diverticulitis with abscess. The patient is reviewed and examined as per Dr. Silva. IV antibiotics as per hospitalist Low residue diet Status post IR percutaneous drain placement 03/04. Plan for outpatient follow-up with general surgery for drain removal and tentative plan for colonoscopy in 6 to 8 weeks. VS,Fishbone, I+O VS, Fishbone, I+O Laboratory Tests 03/05/21 05:45 Vital Signs Date Time Temp Pulse Resp B/P (MAP) Pulse Ox O2 Delivery O2 Flow Rate FiO2 03/05/21 06:00 97.2 62 20 128/82 (97) 100 Room Air I&O- Last 24 Hours up to 6 AM 03/05/21 05:59 Intake Total 700 ml Balance 700 ml Ann Connelly Mar 05, 2021 08:42
[2021-03-05] MEDS: DOCUSATE SODIUM 100MG CAPSULE PO SCH ×2 (08:48→21:28)
--- NOTE | 2021-03-05 10:57 | IPNPDOC ---
Subjective Date Seen The patient was seen on 03/05/21. Subjective Chief Complaint/HPI Patient feels well this morning pain is controlled with Percocet. She reports that she is hungry and would like a diet. No fever or chills. Abdominal drain draining small amounts of pus. Objective Physical Examination General Exam: Positive: Alert, Cooperative, No Acute Distress Eye Exam: Positive: PERRLA, Conjunctiva & lids normal, EOMI; Negative: Sclera icteric ENT Exam: Positive: Atraumatic, Mucous membr. moist/pink, Pharynx Normal Neck Exam: Positive: Supple; Negative: JVD, thyromegaly Chest Exam: Positive: Clear to auscultation, Normal air movement Heart Exam: Positive: Rate Normal, Regular Rhythm, Normal S1, Normal S2; Negative: Murmurs, Rubs Abdomen Exam: Positive: Normal bowel sounds, Soft, Tenderness (Mildly tender at both lower quadrants); Negative: Hepatospenomegaly Extremity Exam: Negative: Clubbing, Cyanosis, Edema Assessment /Plan Assessment This is a 40-year-old female admitted on 03/02/2021 with past medical history significant for obesity BMI of 35.9, diverticulosis, section, tubal ligation and tonsillectomy, presented with four day history of worsening abd ominal pain, bilateral lower quadrants, with nausea, vomiting and subjective fevers at home. Patient was found to have perforated diverticulitis with early abscess. She had CT-guided drainage of the abscess with drain in place. Perforated diverticulitis with early abscess. DRAIN to be placed by radiology Culture from the abscess pending. Blood cultures negative till date continue IV abx, Diet advance to low residue diet Pain control with the Percocet Plan/VTE VTE Prophylaxis Ordered?: Yes VS, I&O, 24H, Fishbone Vital Signs/I&O Vital Signs Date Time Temp Pulse Resp B/P (MAP) Pulse Ox O2 Delivery O2 Flow Rate FiO2 03/05/21 06:00 97.2 62 20 128/82 (97) 100 Room Air I&O- Last 24 Hours up to 6 AM 03/05/21 06:00 Intake Total 900 ml Balance 900 ml Laboratory Data 24H LABS Laboratory Tests 2 03/05/21 05:45: Nucleated Red Blood Cells % (auto) 0.0, Anion Gap 5L, Glomerular Filtration Rate > 60.0, Calcium Level 8.3L, Magnesium Level 2.1, Total Bilirubin 0.4, Aspartate Amino Transf (AST/SGOT) 7, Alanine Aminotransferase (ALT/SGPT) 13, Alkaline Phosphatase 84, Total Protein 5.8L, Albumin 2.5L, Albumin/Globulin Ratio 0.8L CBC/BMP Laboratory Tests 03/05/21 05:45 Microbiology Microbiology 03/04/21 Gram Stain - Final, Resulted 03/04/21 Abscess Culture, Resulted Pending 03/04/21 Anaerobic Culture, Received Pending 03/04/21 Blood Culture - Preliminary, Resulted No growth after 24 hours . All specim... 03/04/21 Blood Culture - Preliminary, Resulted No growth after 24 hours . All specim... MARVA DAVIDSON MD Mar 05, 2021 10:57
[2021-03-05 14:00] VITALS: BP 125/81
[2021-03-05] MEDS ORDERED: traMADol 50 MG TAB PO PRN (17:25)
[2021-03-05 22:00] VITALS: BP 126/79
[2021-03-06] MEDS: PIPERACILLIN/TAZOBACTAM SOD 3.375 GM in D5W MINI-BAG PLUS 50 ML IV SCH ×2 (00:16→05:30)
[2021-03-06] MEDS: KETOROLAC 30 MG/ML 1ML VIAL IV SCH (04:12)
[2021-03-06 06:00] VITALS: BP 127/80
[2021-03-06 06:16] LABS: HEMATOCRIT 31.8 % (36.0-47.0); HEMOGLOBIN 10.4 g/dl (12.0-15.5); MEAN CORPUSCULAR HGB CONC 32.7 g/dl (32.0-36.5); MEAN CORPUSCULAR VOLUME 94.9 fl (80.0-96.0); PLATELET COUNT, AUTOMATED 341 10^3/uL (150-450); RED BLOOD COUNT 3.35 10^6/uL (4.00-5.40); WHITE BLOOD COUNT 7.2 10^3/uL (4.0-10.0)
[2021-03-06 06:46] LABS: ALBUMIN 2.7 GM/DL (3.2-5.2); ALT/SGPT 21 U/L (12-78); BILIRUBIN,TOTAL 0.3 MG/DL (0.2-1.0); BLOOD UREA NITROGEN 15 MG/DL (7-18); CALCIUM LEVEL 8.5 MG/DL (8.5-10.1); CARBON DIOXIDE LEVEL 25 MEQ/L (21-32); CHLORIDE LEVEL 109 MEQ/L (98-107); CREATININE FOR GFR 0.49 MG/DL (0.55-1.30); GLOMERULAR FILTRATION RATE > 60.0 (>58); GLUCOSE, FASTING 111 MG/DL (70-100); MAGNESIUM LEVEL 2.1 MG/DL (1.8-2.4); SODIUM LEVEL 139 MEQ/L (136-145); TOTAL PROTEIN 5.8 GM/DL (6.4-8.2)
[2021-03-06 07:49] LABS: C REACTIVE PROTEIN QUANTITATIV 6.24 MG/DL (0.00-0.30)
[2021-03-06] MEDS: DOCUSATE SODIUM 100MG CAPSULE PO SCH (08:10)
[2021-03-06] MEDS ORDERED: TRAM50TA2 PO (08:24)
[2021-03-06] MEDS ORDERED: FLAG500T PO (08:24)
[2021-03-06] MEDS ORDERED: CEFD300CAP PO (08:24)
--- NOTE | 2021-03-06 08:32 | DS.PDOC ---
Discharge Summary General Date of Admission Mar 02, 2021 at 22:49 Date of Discharge 03/06/21 Discharge Summary PROCEDURES PERFORMED DURING STAY: [None]. DISCHARGE DIAGNOSES: Perforated diverticulitis with abscess formation COMPLICATIONS/CHIEF COMPLAINT: Diverticular Disease Of Intestine W Perforation. HOSPITAL COURSE: This is a 40-year-old female admitted on 03/02/2021 with past medical history significant for obesity BMI of 35.9, diverticulosis, section, tubal ligation and tonsillectomy, presented with four day history of worsening abdominal pain, bilateral lower quadrants, with nausea, vomiting and subjective fevers at home. Patient was found to have perforated diverticulitis with early abscess. She had CT-guided drainage of the abscess with drain in place. Perforated diverticulitis with early abscess. DRAIN to be placed by radiology Culture from the abscess Ecoli and strep group C, anaerobic cultures still pending. Blood cultures negative till date Zosyn changed to cefdinir and metronidazole. low residue diet Pain control with tramadol. May use tylenol/ ibuprofen as needed DISCHARGE MEDICATIONS: Please see below. ALLERGIES: Please see below. PHYSICAL EXAMINATION ON DISCHARGE: VITAL SIGNS: Please see below. General Exam: Positive: Alert, Cooperative, No Acute Distress Eye Exam: Positive: PERRLA, Conjunctiva & lids normal, EOMI; Negative: Sclera icteric ENT Exam: Positive: Atraumatic, Mucous membr. moist/pink, Pharynx Normal Neck Exam: Positive: Supple; Negative: JVD, thyromegaly Chest Exam: Positive: Clear to auscultation, Normal air movement Heart Exam: Positive: Rate Normal, Regular Rhythm, Normal S1, Normal S2; Negative: Murmurs, Rubs Abdomen Exam: Positive: Normal bowel sounds, Soft, Tenderness (Mildly tender at both lower quadrants); Negative: Hepatosplenomegaly Extremity Exam: Negative: Clubbing, Cyanosis, Edema LABORATORY DATA: Please see below. ACTIVITY: [As tolerated]. DIET: Low residue diet DISCHARGE PLAN: Home DISCHARGE INSTRUCTIONS: Follow-up with Dr. Aviles in 1 week Follow-up with PMD in 2 weeks Drain to remain in place until seen by surgeon drain care has been shown to the patient. ITEMS TO FOLLOWUP ON ON OUTPATIENT: Final abscess cultures DISCHARGE CONDITION: [Stable]. TIME SPENT ON DISCHARGE: 35 minutes. Vital Signs/I&Os Vital Signs Date Time Temp Pulse Resp B/P (MAP) Pulse Ox O2 Delivery O2 Flow Rate FiO2 03/06/21 06:00 98.1 61 20 127/80 (96) 100 Room Air I&O- Last 24 Hours up to 6 AM 03/06/21 06:00 Intake Total 1880 ml Output Total 1100 ml Balance 780 ml Laboratory Data Labs 24H Laboratory Tests 2 03/06/21 05:45: Nucleated Red Blood Cells % (auto) 0.0, Anion Gap 5L, Glomerular Filtration Rate > 60.0, Calcium Level 8.5, Magnesium Level 2.1, Total Bilirubin 0.3, Aspartate Amino Transf (AST/SGOT) 18, Alanine Aminotransferase (ALT/SGPT) 21, Alkaline Phosphatase 126H, C-Reactive Protein, Quantitative 6.24H, Total Protein 5.8L, Albumin 2.7L, Albumin/Globulin Ratio 0.9L CBC/BMP Laboratory Tests 03/06/21 05:45 Microbiology Microbiology 03/04/21 Gram Stain - Final, Resulted 03/04/21 Abscess Culture - Preliminary, Resulted Escherichia Coli Streptococcus Group C 03/04/21 Anaerobic Culture, Received Pending 03/04/21 Blood Culture - Preliminary, Resulted No Growth after 48 hours. All Specime... 03/04/21 Blood Culture - Preliminary, Resulted No Growth after 48 hours. All Specime... Discharge Medications Scheduled Cefdinir (Cefdinir) 300 Mg Capsule, 1 CAP PO BID Metronidazole (Flagyl) 500 Mg Tablet, 500 MG PO Q8H FOR 10 DAYS Naproxen Sodium (Aleve) 220 Mg Capsule, 220 MG PO DAILY, (Reported) Scheduled PRN Tramadol HCl (Tramadol HCl) 50 Mg Tablet, 50 MG PO Q6HP PRN for PAIN LEVEL 7-10 Allergies Coded Allergies: morphine (Verified Adverse Reaction, Intermediate, Chest tightness, Chest pain , 03/05/21) MARVA DAVIDSON MD Mar 06, 2021 08:32
[2021-03-06] MEDS ORDERED: MOM 30ML SUSPENSION UDC PO SCH (09:00)
[2021-03-06 17:07] LABS: Chitobioside Carbohydrat (ACCA 19 units (0-90); Laminaribioside Carbohyd (ALCA 24 units (0-60); Mannobioside Carbohydrat (AMCA 23 units (0-100); Saccharomyces cerevisiae IgG A 6 units (0-50)
[2021-03-06 17:07] LABS: Chitobioside Carbohydrat (ACCA 16 units (0-90); Laminaribioside Carbohyd (ALCA 23 units (0-60); Mannobioside Carbohydrat (AMCA 25 units (0-100); Saccharomyces cerevisiae IgG A 7 units (0-50)
== END 2021-03-06 09:50 | disposition home or self-care (01) | DRG 244 ==
LOC: M ED 18:57 → M ED INP 22:49 → M MS5PR 03-03 01:26
PROVIDERS: ADMIT Family Medicine; ATTEND Internal Medicine Nephrology
PROC: 0W9J30Z Drainage of Pelvic Cavity with Drainage Device, Percutaneous Approach (ICD-10-PCS; principal; 2021-03-04 11:17)
DX: K57.80 Diverticulitis of intestine, part unspecified, with perforation and abscess without bleeding (principal); E66.9 Obesity, unspecified; Z68.35 Body mass index [BMI] 35.0-35.9, adult; Z88.5 Allergy status to narcotic agent; F17.200 Nicotine dependence, unspecified, uncomplicated

== ENCOUNTER → 2021-04-10 | Outpatient (CLI) | payer OTHER ==
[~2021-04-10] MED LIST changes: +CEFD300CAP PO; +FLAG500T PO; +TRAM50TA2 PO
== END ==
LOC: M LABSMTC 09:58
PROVIDERS: ATTEND Anesthesiology
DX: Z01.812 Encounter for preprocedural laboratory examination (principal); Z20.822 Contact with and (suspected) exposure to COVID-19

== ENCOUNTER 2021-04-15 08:29 | Day surgery (SDC) | payer OTHER ==
[~2021-04-15] VITALS: Ht 160 cm; Wt 93.0 kg
[~2021-04-15 08:29] MED LIST changes: +NS 1,000 ML IV ONE
--- NOTE | 2021-04-15 09:40 | ROOR ---
Patient Name: Nelsy Hannah Procedure Date: 04/15/2021 9:13 AM Date of : 1980 Age: 40 Room: [facility] Gender: Female Note Status: Finalized Procedure: Colonoscopy Indications: Follow-up of diverticulitis Providers: Kingsley Silva MD Referring MD: 1. NO/Unknown PCP 1. NO/Unknown PCP, Admin. Requesting Provider: Medicines: Monitored Anesthesia Care Complications: No immediate complications. Procedure: Pre-Anesthesia Assessment: - Prior to the procedure, a History and Physical was performed, and patient medications and allergies were reviewed. The patient is competent. The risks and benefits of the procedure and the sedation options and risks were discussed with the patient. All questions were answered and informed consent was obtained. Patient identification and proposed procedure were verified by the physician, the nurse and the cash applications coordinator in the endoscopy suite. Mental Status Examination: alert and oriented. Airway Examination: normal oropharyngeal airway and neck mobility. Respiratory Examination: clear to auscultation. CV Examination: normal. Prophylactic Antibiotics: The patient does not require prophylactic antibiotics. Prior Anticoagulants: The patient has taken no previous anticoagulant or antiplatelet agents. ASA Grade Assessment: II - A patient with mild systemic disease. After reviewing the risks and benefits, the patient was deemed in satisfactory condition to undergo the procedure. The anesthesia plan was to use monitored anesthesia care (MAC). Immediately prior to administration of medications, the patient was re-assessed for adequacy to receive sedatives. The heart rate, respiratory rate, oxygen saturations, blood pressure, adequacy of pulmonary ventilation, and response to care were monitored throughout the procedure. The physical status of the patient was re-assessed after the procedure. The Colonoscope was introduced through the anus and advanced to the cecum, identified by appendiceal orifice and ileocecal valve. The colonoscopy was performed without difficulty. The patient tolerated the procedure well. The quality of the bowel preparation was good. Findings: Hemorrhoids were found on perianal exam. A few medium-mouthed, sparse petecchiae around the diverticula were found in the sigmoid colon, descending colon and transverse colon. Two flat polyps were found in the rectum and sigmoid colon. The polyps were diminutive in size. These polyps were removed with a cold biopsy forceps. Resection and retrieval were complete. Estimated blood loss was minimal. The retroflexed view of the distal rectum and anal verge was normal and showed no anal or rectal abnormalities. Impression: - Hemorrhoids found on perianal exam. - Diverticulosis in the sigmoid colon, in the descending colon and in the transverse colon. - Two diminutive polyps in the rectum and in the sigmoid colon, removed with a cold biopsy forceps. Resected and retrieved. - The distal rectum and anal verge are normal on retroflexion view. Recommendation: - Discharge patient to home (ambulatory). - Use original regular Metamucil one tablespoon PO daily indefinitely. - High fiber diet indefinitely. - Repeat colonoscopy in 10 years for screening purposes. - Telephone my office for pathology results in 1 week. Procedure Code(s): --- Professional --- 90676, Colonoscopy, flexible; with biopsy, single or multiple Diagnosis Code(s): --- Professional --- K64.9, Unspecified hemorrhoids K62.1, Rectal polyp K63.5, Polyp of colon K57.32, Diverticulitis of large intestine without perforation or abscess without bleeding K57.30, Diverticulosis of large intestine without perforation or abscess without bleeding CPT copyright 2019 [employer]. All rights reserved. The codes documented in this report are preliminary and upon insurance adviser review may be revised to meet current compliance requirements. Kingsley Silva MD Kingsley Silva MD 04/15/2021 9:40:01 AM Electronically signed by Kingsley Silva MD Number of Addenda: 0 Note Initiated On: 04/15/2021 9:13 AM Estimated Blood Loss: Estimated blood loss was minimal.
[2021-04-15] MEDS ORDERED: LIDOCAINE 2% 100MG/5ML SDV (FOR ANES.) As Ordered ONE (09:55)
[2021-04-15] MEDS ORDERED: propofoL 200 MG/20 ML VIAL As Ordered ONE (09:55)
[2021-04-15 09:58] VITALS: BP 108/63
== END 2021-04-15 10:08 | disposition home or self-care (01) ==
LOC: M OPP 08:29
PROVIDERS: ATTEND Surgery
DX: K63.5 Polyp of colon (principal); K57.32 Diverticulitis of large intestine without perforation or abscess without bleeding; K57.30 Diverticulosis of large intestine without perforation or abscess without bleeding; K62.1 Rectal polyp; K52.0 Gastroenteritis and colitis due to radiation; Z09 Encounter for follow-up examination after completed treatment for conditions other than malignant neoplasm; F17.210 Nicotine dependence, cigarettes, uncomplicated

== ENCOUNTER 2021-06-11 18:54 | Inpatient (IN) | payer OTHER ==
[~2021-06-11] VITALS: Ht 162.6 cm; Wt 96.6 kg
[~2021-06-11 18:54] MED LIST changes: -NS 1,000 ML IV ONE
--- OUTSIDE RECORDS SUMMARY | 2021-06-11 19:05 | CCD | Continuity of Care Document ---
Author Author Nelsy SILVA MD Organization Unknown Address [address] [place] [address] Phone [phone] Care Team Providers Care Optometry Professor Name Role Phone Maurice Mendoza Noman HEALY AUTM Unavailable Problems Active Problems Provider Date Allergic asthma without status asthmaticus Onset: 01/19/2014 Social History Type Date Description Comments Sex Unknown ETOH Use Denies alcohol use Tobacco Use Start: Unknown Smokes 1/2 Pack A Day Allergies, Adverse Reactions, Alerts Description No Known Drug Allergies Medications Active Medications SIG Qnty Indications Ordering Provide r Date Naproxen Sodium 220mg Capsules 1 tab by mouth once a day Unknown Immunizations Description No Information Available Vital Signs Date Vital Result Comment 03/14/2021 10:00am BP Systolic 131 mmHg BP Diastolic 85 mmHg Body Temperature 98.5 F Height 63 inches 5'3" Weight 203.00 lb BMI (Body Mass Index) 36.0 kg/m2 [place] Body Weight 115 lb Weight 92.081 kg BSA (Body Surface Area) 1.95 m2 01/19/2014 1:35pm BP Systolic 112 mmHg BP Diastolic 78 mmHg Heart Rate 79 /min Height 63 inches 5'3" Weight 200.00 lb BMI (Body Mass Index) 35.4 kg/m2 [place] Body Weight 115 lb Weight 90.720 kg BSA (Body Surface Area) 1.93 m2 Results Description No Information Available Procedures Description No Information Available Medical Devices Description No Information Available Encounters Description No Information Available Assessments Date Code Description Provider 03/14/2021 K57.20 Abscess with diverticular diseas e of colon Kingsely Silva MD Plan of Treatment Future Appointment(s):* 04/30/2021 1:00 pm - MELANIE Lr at [facility] * 04/15/2021 10:45 am - Kingsley Silva MD at [facility] 03/14/2021 - Kingsley Silva MD* K57.20 Abscess with diverticular disease of colon* Comments:* She looks to be doing well. She is scheduled to complete her antibiotics today. Her drain is putting out minimal nonpurulent appearing fluid. I have discontinued her percutaneous drain. This may have been her second attack though looking back she may have had a few more that are noncomplicated. She has always had problems with her bowel movements, mainly in the constipation side. She has never had any colonoscopy. We will schedule her for colonoscopy.I have instructed her to maintain a high-fiber diet which means taking between 35 to 40 g of insoluble fiber daily. She should take Metamucil 1 tablespoon to a glass of water at least once a day. We also talked about rationale and reasons why you would need surgery which is sigmoid colectomy for recurrent diverticulitis, complicated diverticulitis, persistent chronic diverticulitis.1. Now asymptomatic. Discussed with her need for high fiber diet to prevent recurrent attacks of diverticulitis. Recommend taking fiber supplements to a goal of 30 g of fibers daily. She may take Metamucil, Citrucel, FiberCon.2. Recommend colonoscopy to rule out other causes of inflammatory reaction in the area especially cancer.Discussed with her details of procedure risks and benefits including risks of bleeding, infection, injury to bowels/perforation. All her questions and concerns addressed at this time and she has agreed to proceed.3. Discussed bowel prep.4.Discussed risks and benefits of colonoscopy including risks of bleeding and perforation. Patient has agreed to proceed. 1. Discussed with her the rationale for colon cancer screening as well as the different options for screening. 2. Discussed bowel prep.3.Discussed risks and benefits of colonoscopy including risks of bleeding and perforation * Follow up:* 3 week. Functional Status Description No Information Available Mental Status Description No Information Available Referrals Description No Information Available
--- OUTSIDE RECORDS SUMMARY | 2021-06-11 19:05 | CCD | Continuity of Care Document ---
Author Author Nelsy GUZMÁN PA Organization Unknown Address [address] [place] [address], [address] [place] [address] Phone [phone] Care Team Providers Care Director International Name Role Phone Miguel Ángel Mendozajen Tineo DIVISION SALES MANAGER AUTM Unavailable Problems Active Problems Provider Date Allergic asthma without status asthmaticus Onset: 01/19/2014 Social History Type Date Description Comments Sex Unknown ETOH Use Denies alcohol use Tobacco Use Start: Unknown Smokes 1/2 Pack A Day Allergies and adverse reactions Description No Known Drug Allergies Medications Active Medications SIG Qnty Indications Ordering Provide r Date Naproxen Sodium 220mg Capsules 1 tab by mouth once a day Unknown History Medications Miralax 17GM/Scoop Powder use as instructed by doctor for bowel prep 238gm Kingsley solomon MD 04/09/2021 - 04/29/[address] take 4 tabs by mouth prior to procedure per instructions. 4tabs Ba Bautista MD 04/09/2021 - 04/29/2021 Magnesium Citrate 1.745GM/30ML Annette ution one 10 oz bottle green or clear only, use as directed at 5:00 pm on prep day 296ml Kingsley Silva MD 04/09/2021 - 10/2020 Suprep Bowel Prep Kit 17.5-3.13-1.6GM/177ML Solution take per doctor's bowel prep instructions. 354ml Kingsley Silva MD 04/08/2021 - 04/29/2021 Immunizations Description No Information Available Vital Signs Date Vital Result Comment 04/30/2021 12:57pm BP Systolic 118 mmHg BP Diastolic 85 mmHg Body Temperature 98.6 F Height 63 inches 5'3" Weight 205.00 lb BMI (Body Mass Index) 36.3 kg/m2 [place] Body Weight 115 lb Weight 92.988 kg BSA (Body Surface Area) 1.95 m2 03/14/2021 10:00am BP Systolic 131 mmHg BP Diastolic 85 mmHg Body Temperature 98.5 F Height 63 inches 5'3" Weight 203.00 lb BMI (Body Mass Index) 36.0 kg/m2 [place] Body Weight 115 lb Weight 92.081 kg BSA (Body Surface Area) 1.95 m2 Results Test Acquired Date Facility Test Result H/L Range Note Laboratory test finding 04/15/2021 [facility] Main Lab [address] [id number] [phone] Pathology Request For Service (SEE NOTE) 1 1 FINAL DIAGNOSIS Sigmoid colon polyp, polypectomy: Tubular adenoma. Hyperplastic polyp is also present. 04/16/2021 - 115 CLINICAL DIAGNOSIS Diverticulitis 04/15/2021 - 1410 GROSS DIAGNOSIS Received in formalin labeled "sigmoid colon polyp" consists of two beltran fragments measuring 0.5 x 0.3 x 0.2 cm in aggregate. All in one. -SV 04/15/2021 - 1410 Signed JAYCE CARDONA MD 04/16/2021 1346 Procedures Date Code Description Status 04/30/2021 00638 Office/Outpatient Established Lo w MDM 20-29 Min Completed 04/15/2021 59974 Colonoscopy Flexible Proximal To Splenic Flexure W/Biopsy Single/ Completed Medical Devices Description No Information Available Encounters Type Date Location Provider Dx Diagnosis Office Visit 04/30/2021 1:00p [facility] MELANIE Doran D12.5 Benign neoplasm of sigmoid colon K57.30 Dvrtclos of lg int w/o perfo ration or abscess w/o bleeding K64.9 Unspecified hemorrhoids Assessments Date Code Description Provider 04/30/2021 D12.5 Benign neoplasm of sigmoid colon MELANIE Lr 04/30/2021 K57.30 Diverticulosis of la rge intestine without perforation or abscess without bleeding MELANIE Lr 04/30/2021 K64.9 Unspecified hemorrhoids MELANIE Alberts 04/15/2021 D12.5 Benign neoplasm of sigmoid colon Kingsley Silva MD 04/15/2021 K57.30 Diverticulosis of la rge intestine without perforation or abscess without bleeding Kingsley Silva MD 04/15/2021 K64.9 Unspecified hemorrhoids Kingsley Silva MD 03/14/2021 K57.20 Abscess with diverticular diseas e of colon Kingsley Silva MD Plan of Treatment No Information Available Functional Status Description No Information Available Mental Status Description No Information Available Referrals Description No Information Available
--- OUTSIDE RECORDS SUMMARY | 2021-06-11 19:05 | CCD | Continuity of Care Document ---
Author Author Nelsy GUZMÁN PA Organization Unknown Address [address] [place] [address], [address] [place] [address] Phone [phone] Care Team Providers Care Building Inspector Name Role Phone Miguel Ángel Mendozajen Tineo STATION EXAMINER AUTM Unavailable Problems Active Problems Provider Date [...] lb BMI (Body Mass Index) 36.3 kg/m2 [place] Body Weight 115 lb Weight 92.988 kg BSA (Body Surface Area) 1.95 m2 03/14/2021 10:00am BP Systolic 131 mmHg BP Diastolic 85 mmHg Body Temperature 98.5 F Height 63 inches 5'3" Weight 203.00 lb BMI (Body Mass Index) 36.0 kg/m2 [place] Body Weight 115 lb Weight 92.081 kg BSA (Body Surface Area) 1.95 m2 Results Test Acquired Date Facility Test Result H/L Range Note Laboratory test finding 04/15/2021 [facility] Main Lab [address] [id number] [phone] Pathology Request For Service (SEE NOTE) 1 [...] 04/16/2021 1346 Procedures Date Code Description Status 04/15/2021 42486 Colonoscopy Flexible Proximal To Splenic Flexure W/Biopsy Single/ Completed Medical Devices Description No Information Available Encounters Description No Information Available Assessments Date Code Description Provider 04/30/2021 D12.5 [...]
--- OUTSIDE RECORDS SUMMARY | 2021-06-11 19:05 | CCD | Continuity of Care Document ---
Author Author Nelsy GUZMÁN PA Organization Unknown Address [address] [place] [address], [address] [place] [address] Phone [phone] Care Team Providers Care Color Receiver Name Role Phone Miguel Ángel Mendozajen Tineo FLIGHT SIMULATOR TEACHER AUTM Unavailable Problems Active Problems Provider Date [...] lb BMI (Body Mass Index) 36.3 kg/m2 [place] Body Weight 115 lb Weight 92.988 kg BSA (Body Surface Area) 1.95 m2 03/14/2021 10:00am BP Systolic 131 mmHg BP Diastolic 85 mmHg Body Temperature 98.5 F Height 63 inches 5'3" Weight 203.00 lb BMI (Body Mass Index) 36.0 kg/m2 [place] Body Weight 115 lb Weight 92.081 kg BSA (Body Surface Area) 1.95 m2 Results Test Acquired Date Facility Test Result H/L Range Note Laboratory test finding 04/15/2021 [facility] Main Lab [address] [id number] [phone] Pathology Request For Service (SEE NOTE) 1 [...] 1346 Procedures Date Code Description Status 04/15/2021 25057 Colonoscopy Flexible Proximal To Splenic Flexure W/Biopsy [...]
--- OUTSIDE RECORDS SUMMARY | 2021-06-11 19:05 | CCD | Continuity of Care Document ---
Author Author Nelsy SILVA MD Organization Unknown Address [address] [place] [address] Phone [phone] Care Team Providers Care General Farm Hand Name Role Phone Maurice Mendoza Noman VETERINARY TECHNICIAN AUTM Unavailable Problems Active Problems Provider Date Allergic asthma without status asthmaticus Onset: 01/19/2014 Social History Type Date Description Comments Sex Unknown ETOH Use Denies alcohol use Tobacco Use Start: Unknown Smokes 1/2 Pack A Day Allergies, Adverse Reactions, Alerts Description No Known Drug Allergies Medications Active Medications SIG Qnty Indications Ordering Provide r Date Miralax 17GM/Scoop Powder use as instructed by doctor for bowel prep 238gm Kingsley solomon MD 04/09/[address] take 4 tabs by mouth prior to procedure per instructions. 4tabs Ba Bautista MD 04/09/2021 Magnesium Citrate 1.745GM/30ML Annette ution one 10 oz bottle green or clear only, use as directed at 5:00 pm on prep day 296ml Kingsley Silva MD 04/09/2021 Suprep Bowel Prep Kit 17.5-3.13-1.6GM/177ML Solution take per doctor's bowel prep instructions. 354ml Kingsley Silva MD 04/08/2021 Naproxen Sodium 220mg Capsules 1 tab by mouth once a day Unknown Immunizations Description No Information Available Vital Signs Date Vital Result Comment 03/14/2021 10:00am BP Systolic 131 mmHg BP Diastolic 85 mmHg Body Temperature 98.5 F Height 63 inches 5'3" Weight 203.00 lb BMI (Body Mass Index) 36.0 kg/m2 [place] Body Weight 115 lb Weight 92.081 kg BSA (Body Surface Area) 1.95 m2 01/19/2014 1:35pm BP Systolic 112 mmHg BP Diastolic 78 mmHg Heart Rate 79 /min Height 63 inches 5'3" Weight 200.00 lb BMI (Body Mass Index) 35.4 kg/m2 [place] Body Weight 115 lb Weight 90.720 kg BSA (Body Surface Area) 1.93 m2 Results Test Acquired Date Facility Test Result H/L Range Note Laboratory test finding 04/15/2021 [facility] Main Lab [address] [place], [place] [id number] [phone] Pathology Request For Service (SEE NOTE) 1 1 FINAL DIAGNOSIS Sigmoid colon polyp, polypectomy: Tubular adenoma. Hyperplastic polyp is also present. 04/16/2021 - 1152 CLINICAL DIAGNOSIS Diverticulitis 04/15/2021 - 1410 GROSS DIAGNOSIS Received in formalin labeled "sigmoid colon polyp" consists of two beltran fragments measuring 0.5 x 0.3 x 0.2 cm in aggregate. All in one. -SV 04/15/2021 - 1410 Signed JAYCE CARDONA MD 04/16/2021 1346 Procedures Date Code Description Status 04/15/2021 76643 Colonoscopy Flexible Proximal To Splenic Flexure W/Biopsy Single/ Completed Medical Devices Description No Information Available Encounters Description No Information Available Assessments Date Code Description Provider 04/15/2021 D12.5 Benign neoplasm of sigmoid colon Kingsley Silva MD 04/15/2021 K57.30 Diverticulosis of la rge intestine without perforation or abscess without bleeding Kingsley Silva MD 04/15/2021 K64.9 Unspecified hemorrhoids Kingsley Silva MD 03/14/2021 K57.20 Abscess with diverticular diseas e of colon Kingsley Silva MD Plan of Treatment Future Appointment(s):* 04/30/2021 1:00 pm - MELANIE Lr at [facility] 03/14/2021 - Kingsley Silva MD* K57.20 [...] colonoscopy including risks of bleeding and perforation Functional Status Description No Information Available Mental Status Description No Information Available Referrals Description No Information Available
--- OUTSIDE RECORDS SUMMARY | 2021-06-11 19:05 | CCD | Continuity of Care Document ---
Author Author Nelsy SILVA MD Organization Unknown Address [address] [place] [address] Phone [phone] Care Team Providers Care Inventory Technician Name Role Phone Maurice Mendoza Noman MARINE RESOURCE ECONOMIST AUTM Unavailable Problems Active Problems Provider Date [...] 5:00 pm on prep day 296ml Kingsley Silav MD 04/09/2021 - 10/2020 Suprep Bowel Prep Kit 17.5-3.13-1.6GM/177ML Solution take per doctor's bowel prep instructions. 354ml Kingsley Silva MD 04/08/2021 - 04/29/2021 Immunizations Description No Information Available Vital Signs Date Vital Result Comment 04/30/2021 12:57pm BP Systolic 118 mmHg BP Diastolic 85 mmHg Body Temperature 98.6 F Height 63 inches 5'3" Weight 205.00 lb BMI (Body Mass Index) 36.3 kg/m2 [place] Body Weight 115 lb Weight 92.988 kg BSA (Body Surface Area) 1.95 m2 03/14/2021 10:00am BP Systolic 131 mmHg BP Diastolic 85 mmHg Body Temperature 98.5 F Height 63 inches 5'3" Weight 203.00 lb BMI (Body Mass Index) 36.0 kg/m2 [place] Body Weight 115 lb Weight 92.081 kg BSA (Body Surface Area) 1.95 m2 Results Test Acquired Date Facility Test Result H/L Range Note Laboratory test finding 04/15/2021 [facility] Main Lab [address] [id number] [phone] Pathology Request For Service (SEE NOTE) 1 [...] 1346 Procedures Date Code Description Status 04/30/2021 92458 Office/Outpatient Established Lo w MDM 20-29 Min Completed 04/15/2021 34620 Colonoscopy Flexible Proximal To Splenic Flexure W/Biopsy Single/ Completed 03/14/2021 66910 Office/Outpatient New Moderate M DM 45-59 Minutes Completed Medical Devices Description No Information Available Encounters Type Date Location Provider Dx Diagnosis Office Visit 04/30/2021 1:00p [facility] MELANIE Doran D12.5 Benign neoplasm of sigmoid colon K57.30 Dvrtclos of lg int w/o perfo ration or abscess w/o bleeding K64.9 Unspecified hemorrhoids Office Visit 03/14/2021 10:00a Merged With [facility] Jesus Silva MD K57.20 Dvtrcli of lg int w perforat ion and abscess w/o bleeding Assessments Date Code Description Provider 04/30/2021 D12.5 [...]
--- OUTSIDE RECORDS SUMMARY | 2021-06-11 19:05 | CCD ---
Author Author [facility] Organization [facility] Address Unknown Phone Unavailable Care Team Providers Care Family Service Aide Name Role Phone Maring, Dar PA Unavailable Unavailable Maring, Dar PA Unavailable Unavailable Maring, Dar PA Unavailable Unavailable Maring, Dar PA Unavailable Unavailable Maring, Dar PA Unavailable Unavailable Maring, Dar PA Unavailable Unavailable Maring, Dar PA Unavailable Unavailable Maring, Dar PA Unavailable Unavailable Maring, Dar PA Unavailable Unavailable Maring, Dar PA Unavailable Unavailable Maring, Dar PA Unavailable Unavailable Maring, Dar PA Unavailable Unavailable Maring, Dar PA Unavailable Unavailable Maring, Dar PA Unavailable Unavailable Maring, Dar PA Unavailable Unavailable Maring, Dar PA Unavailable Unavailable BARANGÉLICAUGAKirby MD Unavailable Unavailable BARANGÉLICAUGAKirby MD Unavailable Unavailable BARANGÉLICAUGAKirby MD Unavailable Unavailable BARANGÉLICAUGAKirby MD Unavailable Unavailable BARKirby WEEMS MD Unavailable Unavailable Kirby AQUINO MD Unavailable Unavailable LUISUGAKirby MD Unavailable Unavailable BARANGÉLICAUGAKirby MD Unavailable Unavailable LUISUGAKirby MD Unavailable Unavailable BARANGÉLICAUGAKirby MD Unavailable Unavailable Kirby AQUINO MD Unavailable Unavailable BARAYUGAKirby MD Unavailable Unavailable BARAYUGAKirby MD Unavailable Unavailable BARANGÉLICAUGAKirby MD Unavailable Unavailable LUISUGAKirby MD Unavailable Unavailable Kirby AQUINO MD Unavailable Unavailable Kirby AQUINO MD Unavailable Unavailable BARANGÉLICAUGAKirby MD Unavailable Unavailable LUISUGAKirby MD Unavailable Unavailable BARANGÉLICAUGAKirby MD Unavailable Unavailable Kirby AQUINO MD Unavailable Unavailable Kirby AQUINO MD Unavailable Unavailable BARANGÉLICAUGAKirby MD Unavailable Unavailable LUISUGAKirby MD Unavailable Unavailable LUISUGAKirby MD Unavailable Unavailable BARANGÉLICAUGAKirby MD Unavailable Unavailable BARKirby WEEMS MD Unavailable Unavailable Kirby AQUINO MD Unavailable Unavailable BARANGÉLICAUGAKirby MD Unavailable Unavailable LUISUGAKirby MD Unavailable Unavailable BARANGÉLICAUGAKirby MD Unavailable Unavailable BARAYUGAKirby MD Unavailable Unavailable BARAYUGAKirby MD Unavailable Unavailable BARAYUGAKirby MD Unavailable Unavailable BARANGÉLICAUGAKirby MD Unavailable Unavailable Connelly, L Ann RPA Unavailable Unavailable Connelly, L Ann RPA Unavailable Unavailable Connelly, L Ann RPA Unavailable Unavailable Connelly, L Ann RPA Unavailable Unavailable Connelly, L Ann RPA Unavailable Unavailable Connelly, L Ann RPA Unavailable Unavailable Connelly, L Ann RPA Unavailable Unavailable Connelly, L Ann RPA Unavailable Unavailable Connelly, L Ann RPA Unavailable Unavailable Connelly, L Ann RPA Unavailable Unavailable Connelly, L Ann RPA Unavailable Unavailable Connelly, L Ann RPA Unavailable Unavailable Connelly, L Ann RPA Unavailable Unavailable Connelly, L Ann RPA Unavailable Unavailable Connelly, L Ann RPA Unavailable Unavailable Connelly, L Ann RPA Unavailable Unavailable Connelly, L Ann RPA Unavailable Unavailable Connelly, L Ann RPA Unavailable Unavailable Connelly, L Nan RPA Unavailable Unavailable Connelly, L Ann RPA Unavailable Unavailable Connelly, L Ann RPA Unavailable Unavailable Connelly, L Ann RPA Unavailable Unavailable Connelly, L Ann RPA Unavailable Unavailable Connelly, L Ann RPA Unavailable Unavailable Connelly, L Ann RPA Unavailable Unavailable Connelly, L Ann RPA Unavailable Unavailable Connelly, L Ann RPA Unavailable Unavailable Connelly, L Ann RPA Unavailable Unavailable Connelly, L Ann RPA Unavailable Unavailable Connelly, L Ann RPA Unavailable Unavailable Connelly, L Ann RPA Unavailable Unavailable Connelly, L Ann RPA Unavailable Unavailable Re-disclosure Warning The records that you are about to access may contain information from federally-assisted alcohol or drug abuse programs. If such information is present, then the following federally mandated warning applies: This information has been disclosed to you from records protected by federal confidentiality rules (42 CFR part 2). The federal rules prohibit you from making any further disclosure of this information unless further disclosure is expressly permitted by the written consent of the person to whom it pertains or as otherwise permitted by 42 CFR part 2. A general authorization for the release of medical or other information is NOT sufficient for this purpose. The Federal rules restrict any use of the information to criminally investigate or prosecute any alcohol or drug abuse patient.The records that you are about to access may contain highly sensitive health information, the redisclosure of which is protected by Article 27-F of the [facility] Public Health law. If you continue you may have access to information: Regarding HIV / AIDS; Provided by facilities licensed or operated by the [facility] Office of Mental Health; or Provided by the [facility] Office for People With Developmental Disabilities. If such information is present, then the following [facility] mandated warning applies: This information has been disclosed to you from confidential records which are protected by state law. State law prohibits you from making any further disclosure of this information without the specific written consent of the person to whom it pertains, or as otherwise permitted by law. Any unauthorized further disclosure in violation of state law may result in a fine or half-way sentence or both. A general authorization for the release of medical or other information is NOT sufficient authorization for further disc losure. Family History Family Member Name Family Member Gender Family Member Status Date o f Status Description Data Source(s) Unknown Male Problem [facility] ([facility]) Encounters Encounter Providers Location Date Indications Data Source(s ) Outpatient Attender: Dar NAVARRO 05/30/20 02:25:52 PM EDT - 05/30/2021 03:28:31 PM EDT [facility] ([facility] ) Outpatient Attender: Ann Bailon/Leonor/Geovany/R eindl 04/30/2021 01:00:00 PM EDT [facility] ([facility]) Outpatient Attender: LUNA Bailon/Leonor/Geovany/ Reindl 03/14/2021 10:00:00 AM EDT [facility] ([facility]) Medications Medication Brand Name Start Date Product Form Dose Route Admi nistrative Instructions Pharmacy Instructions Status Indications Reaction Description Data Source(s) 250 mg 05/30/2021 12:00:00 AM EDT tablet 6 TAKE TWO TABLETS BY MOUTH AT ONCE ON THE FIRST DAY THEN TAKE ONE DAILY THEREAFTER TAKE TWO TABLETS BY MOUTH AT ONCE ON THE FIRST DAY THEN TAKE ONE DAILY THEREAFTER SOLD: 05/30/2021 [facility] 20 mg 05/30/2021 12:00:00 AM EDT tablet 10 TAKE TWO TABLETS BY MOUTH EVERY DAY IN THE MORNING FOR 5 DAYS TAKE TWO TABLETS BY MOUTH EVERY DAY IN T HE MORNING FOR 5 DAYS SOLD: 05/30/2021 [facility] 17 gram/dose 04/11/2021 12:00:00 AM EDT powder 238 USE DIRECTED BY DOCTOR FOR BOWEL PREP USE DIRECTED BY DOCTOR FOR BOWEL PREP SOLD: 04/14/2021 [facility] 5 mg 04/11/2021 12:00:00 AM EDT tablet,delayed release (DR/EC) 4 TAKE 4 TABLETS BY PRIOR TO PROCEDURE PER INSTRUCTIONS TAKE 4 TABLETS BY PRIOR TO PROCEDURE PER INSTRUCTIONS SOLD: 04/14/2021 [facility] MAGNESIUM CITRATE 04/10/2021 12:00:00 AM EDT solution 296 USE DIRECTED AT 5PM ON PREP DAY USE DIRECTED AT 5PM ON PREP DAY SOLD: 04/14/2021 [facility] Bisacodyl 5 MG Delayed Release Oral Tablet [Dulcolax] Dulcol ax 04/09/2021 12:00:00 AM EDT ORAL completed [facility] ([facility], ) magnesium citrate 58.2 MG/ML Oral Solution Magnesium Citrate 04/09/2021 12:00:00 AM EDT completed [facility] ([facility], ) POLYETHYLENE GLYCOL 3350 142 MG/ML Oral Solution [Miralax] M iralax 04/09/2021 12:00:00 AM EDT completed [facility] ([facility], ) Suprep Bowel Prep Kit Suprep Bowel Prep Kit 04/08/2021 12:00:00 AM EDT completed [facility] ([facility], ) Metronidazole 500 MG Oral Tablet METRONIDAZOLE 03/06/2021 12:0 0:00 AM EDT tablet 30 TAKE ONE TABLET BY MOUTH EVERY 8 HOURS FOR 10 DAYS TAKE ONE TABLET BY MOUTH EVERY 8 HOURS FOR 10 DAYS SOLD: 03/06/2021 [facility] 300 mg 03/06/2021 12:00:00 AM EDT capsule 20 TAKE ONE CAPSULE BY MOUTH TWICE A DAY TAKE ONE CAPSULE BY MOUTH TWICE A DAY SOLD: 03/06/2021 [facility] 50 mg 03/06/2021 12:00:00 AM EDT tablet 20 TAKE ONE TABLET BY MOUTH EVERY 6 HOURS NEEDED FOR PAIN LEVEL 7-10, MAXIMUM DAILY DOSE = 3 TAKE ONE TABLET BY MOUTH EVERY 6 HOURS NEEDED FOR PAIN LEVEL 7-10, MAXIMUM DAILY DOSE = 3 SOLD: 03/06/2021 [facility] 500 mg 10/06/2020 12:00:00 AM EST tablet 30 TAKE ONE TABLET BY MOUTH TWICE A DAY WITH FOOD TAKE ONE TABLET BY MOUTH TWICE A DAY WITH FOOD SOLD: [facility] 750 mg 10/06/2020 12:00:00 AM EST tablet 30 TAKE ONE TABLET BY MOUTH THREE TIMES A DAY TAKE ONE TABLET BY MOUTH THREE TIMES A DAY SOLD: 10/06/2020 [facility] Insurance Providers Payer name Policy type / Coverage type Policy ID Covered republican ID Covered republican's relationship to carter Policy [place] Plan Information Medicaid [place] Medigap Part B [id number] Self [id number] [facility] Community Plan Commercial [id number] Self [id number] [facility] Community Plan Commercial [id number] Self [id number] [facility] Community Plan Commercial [id number] Self [id number] [facility] Community Plan Commercial [id number] Self [id number] [facility] Community Plan Commercial [id number] Self [id number] [facility] COMMUNITY PLAN MCDO [id number] [facility] NATIONAL ACCOUNT emp [id number] Employee [id number] [facility] Commercial Insurance Co. [id number] Self [id number] ANSI-Medicaid [id number] ANSI-Medicaid [id number] ANSI-Medicaid [id number] ANSI-Medicaid [id number] ANSI-Medicaid [id number] ANSI-Medicaid [id number] ANSI-Medicaid [id number] ANSI-Medicaid [id number] ANSI-Medicaid [id number] ANSI-Medicaid [id number] ANSI-Medicaid [id number] ANSI-Medicaid [id number] ANSI-Medicaid [id number] ANSI-Medicaid [id number] ANSI-Medicaid [id number] ANSI-Medicaid [id number] [facility] [id number] S [id number] ANSI-Medicaid [id number] ANSI-Medicaid [id number] ANSI-Medicaid [id number] ANSI-Medicaid [id number] ANSI-Medicaid [id number] ANSI-Medicaid [id number] ANSI-Medicaid [id number] ANSI-Medicaid [id number] ANSI-Medicaid [id number] ANSI-Medicaid [id number] MEDICAID [id number] SP [id number] [facility] [id number] SP [id number] [facility] [id number] SP [id number] SELF PAY ONLY [id number] SP [id number] [facility] PLAN [facility] [id number] SP [id number] ANS-Medicaid [id number] ANSI-Medicaid [id number] [facility]-Medicaid [id number] ANS-Medicaid [id number] [facility]-Medicaid [id number] [facility]-Medicaid [id number] Problems, Conditions, and Diagnoses No Information Surgeries/Procedures Procedure Description Date Indications Data Source(s) OFFICE OUTPATIENT VISIT 15 MINUTES 04/30/2021 12:00:00 AM EDT [facility] ([facility], ) Colonoscopy Flexible Proximal To Splenic Flexure W/Biopsy Si ngle/ 04/15/2021 12:00:00 AM EDT [facility] ([facility], ) OFFICE OUTPATIENT NEW 45 MINUTES 03/14/2021 12:00:00 A M EDT [facility] Results ID Date Data Source [id number] 05/30/2021 02:45:00 PM EDT [facility] Name Value Range Interpretation Code Description Data Arlene rce(s) Supporting Document(s) SARS-CoV-2 RNA Resp Ql ADELFO+probe NOT DETECTED [facility] This lab was ordered by LISA mehta and reported by LISA Donnelly. ID Date Data Source [id number] 04/15/2021 09:34:00 AM EDT [facility] Name Value Range Interpretation Code Description Data Arlene rce(s) Supporting Document(s) Surgical pathology study Laboratory test result [facility] ([facility]) FINAL DIAGNOSIS Sigmoid colon polyp, polypectomy: Tubular adenoma. Hyperplastic polyp is also present. 04/16/2021 - 115 CLINICAL DIAGNOSIS Diverticulitis 04/15/2021 - 1410 GROSS DIAGNOSIS Received in formalin labeled "sigmoid colon polyp" consists of two beltran fragments measuring 0.5 x 0.3 x 0.2 cm in aggregate. All in one. -SV 04/15/2021 - 1410 Signed JAYCE CARDONA MD 04/16/2021 1346 ID Date Data Source [id number] 04/10/2021 10:10:00 AM EDT [facility] Name Value Range Interpretation Code Description Data Arlene rce(s) Supporting Document(s) SARS-CoV-2 (COVID-19) RNA [Presence] in Respiratory specimen by ADELFO with probe detection Not Detected [facility] This lab was ordered by [facility] and reported by [facility] ID Date Data Source [id number] 03/02/2021 11:27:00 PM EDT [facility] Name Value Range Interpretation Code Description Data Arlene rce(s) Supporting Document(s) SARS coronavirus 2 RNA [Presence] in Res piratory specimen by ADELFO with probe detection NEGATIVE [facility] This lab was ordered by [facility] a nd reported by [facility]. ID Date Data Source [id number] 10/17/2020 01:16:00 PM EDT [facility] Name Value Range Interpretation Code Description Data Arlene rce(s) Supporting Document(s) SARS-CoV-2 (COVID-19) RNA [Presence] in Respiratory specimen by ADELFO with probe detection Not Detected [facility] This lab was ordered by [facility] and reported by [facility]. Procedure Social History No Information Vital Signs ID Date Data Source UNK Name Value Range Interpretation Code Description Data Source(s) Systolic blood pressure 118 mm[Hg] 118 mm[Hg] M [facility] ([facility]) Body weight 205.00 [lb_av] 205.00 [lb_av] [facility] T ([facility]) Body mass index (BMI) [Ratio] 36.3 kg/m2 36.3 k g/m2 [facility] ([facility]) [place] body weight 115 [lb_av] 115 [lb_av] [facility] T ([facility]) Body weight 92.988 kg 92.988 kg [facility] Body surface area Derived from formula 1.95 m2 1.95 m2 [facility] ([facility]) Diastolic blood pressure 85 mm[Hg] 85 mm[Hg] [facility] ([facility]) Body temperature 98.6 [degF] 98.6 [degF] [facility] ([facility]) Body height 63 [in_i] 63 [in_i] [facility] ([facility]) 5'3" Body weight 92.081 kg 92.081 kg [facility] ([facility]) Diastolic blood pressure 85 mm[Hg] 85 mm[Hg] [facility] ([facility]) Body temperature 98.5 [degF] 98.5 [degF] [facility] ([facility]) Body height 63 [in_i] 63 [in_i] [facility] 5'3" Body weight 203.00 [lb_av] 203.00 [lb_av] [facility] T ([facility]) Body mass index (BMI) [Ratio] 36.0 kg/m2 36.0 k g/m2 [facility] ([facility]) [place] body weight 115 [lb_av] 115 [lb_av] JORDON Peters ([facility], ) Systolic blood pressure 131 mm[Hg] 131 mm[Hg] M [facility]IL[facility] ([facility], ) Body surface area Derived from formula 1.95 m2 1.95 m2 [facility] ([facility], )
--- OUTSIDE RECORDS SUMMARY | 2021-06-11 19:05 | CCD | Continuity of Care Document ---
Author Author Nelsy GUZMÁN PA Organization Unknown Address [address] [place] [address], [address] [place] [address] Phone [phone] Care Team Providers Care Applications Intern Name Role Phone Miguel Ángel Mendozajen Tineo MICA SIZER AUTM Unavailable Problems Active Problems Provider Date [...] lb BMI (Body Mass Index) 36.3 kg/m2 [place] Body Weight 115 lb Weight 92.988 kg BSA (Body Surface Area) 1.95 m2 03/14/2021 10:00am BP Systolic 131 mmHg BP Diastolic 85 mmHg Body Temperature 98.5 F Height 63 inches 5'3" Weight 203.00 lb BMI (Body Mass Index) 36.0 kg/m2 [place] Body Weight 115 lb Weight 92.081 kg BSA (Body Surface Area) 1.95 m2 Results Test Acquired Date Facility Test Result H/L Range Note Laboratory test finding 04/15/2021 [facility] [address] [id number] [phone] Pathology Request For Service (SEE NOTE) 1 [...] 1346 Procedures Date Code Description Status 04/15/2021 96054 Colonoscopy Flexible Proximal To Splenic Flexure W/Biopsy [...]
[2021-06-11] MEDS ORDERED: META28.32 PO (19:09)
[2021-06-11 21:20] LABS: BASO # 0.1 10^3/uL (0.0-0.2); BASO % 0.5 % (0.0-1.0); EOS # 0.1 10^3/uL (0.0-0.5); EOS % 0.6 % (0.0-3.0); HEMATOCRIT 35.5 % (36.0-47.0); HEMOGLOBIN 11.8 g/dl (12.0-15.5); LYMPH # 1.8 10^3/uL (1.5-5.0); LYMPH % 15.7 % (24.0-44.0); MEAN CORPUSCULAR HEMOGLOBIN 31.4 pg (27.0-33.0); MEAN CORPUSCULAR HGB CONC 33.2 g/dl (32.0-36.5); MEAN CORPUSCULAR VOLUME 94.4 fl (80.0-96.0); MONO # 1.1 10^3/uL (0.0-0.8); MONO % 9.1 % (2.0-8.0); NEUTROPHILS # 8.6 10^3/uL (1.5-8.5); NEUTROPHILS % 73.8 % (36.0-66.0); PLATELET COUNT, AUTOMATED 326 10^3/uL (150-450); RED BLOOD COUNT 3.76 10^6/uL (4.00-5.40); WHITE BLOOD COUNT 11.7 10^3/uL (4.0-10.0)
[2021-06-11 21:52] LABS: ALBUMIN 3.4 GM/DL (3.2-5.2); ALT/SGPT 18 U/L (12-78); BILIRUBIN,DIRECT < 0.1 MG/DL (0.0-0.2); BILIRUBIN,TOTAL 0.4 MG/DL (0.2-1.0); LIPASE 36 U/L (73-393)
[2021-06-11] MEDS ORDERED: KETOROLAC 30 MG/ML 1ML VIAL IV ONE (22:25)
[2021-06-11] MEDS ORDERED: ONDANSETRON 4MG/2ML VIAL IV ONE (22:25)
[2021-06-11] MEDS ORDERED: NS 1,000 ML IV ONE (22:25)
[2021-06-11] MEDS ORDERED: ISOVUE-370 76% 100ML VIAL As Ordered ONE (22:38)
--- OUTSIDE RECORDS SUMMARY | 2021-06-11 23:07 | CCD ---
Author Author [facility] Organization [facility] Address Unknown Phone Unavailable Care Team Providers Care Base Filler Operator Name Role Phone Maring, Dar PA Unavailable [...] is protected by Article 27-F of the [facility] Public Health law. If you continue you may have access to information: Regarding HIV / AIDS; Provided by facilities licensed or operated by the [facility] Office of Mental Health; or Provided by the [facility] Office for People With Developmental Disabilities. If such information is present, then the following [facility] mandated warning applies: This information has been [...] law may result in a fine or care home sentence or both. A general authorization for the release of medical or other information is NOT sufficient authorization for further disc losure. Family History Family Member Name Family Member Gender Family Member Status Date o f Status Description Data Source(s) Unknown Male Problem [facility] ([facility]) Encounters Encounter Providers Location Date Indications Data Source(s ) Outpatient Attender: Dar NAVARRO 05/30/20 02:25:52 PM EDT - 05/30/2021 03:28:31 PM EDT [facility] ([facility] ) Outpatient Attender: Ann Bailon/Leonor/Geovany/R eindl 04/30/2021 01:00:00 PM EDT [facility] ([facility]) Outpatient Attender: LUNA Bailon/Leonor/Geovany/ Reindl 03/14/2021 10:00:00 AM EDT [facility] ([facility]) Medications Medication Brand Name Start Date Product [...] 04/09/2021 12:00:00 AM EDT ORAL completed [facility] ([facility], ) magnesium citrate 58.2 MG/ML Oral Solution Magnesium Citrate 04/09/2021 12:00:00 AM EDT completed [facility] ([facility], ) POLYETHYLENE GLYCOL 3350 142 MG/ML Oral Solution [Miralax] M iralax 04/09/2021 12:00:00 AM EDT completed [facility] ([facility], ) Suprep Bowel Prep Kit Suprep Bowel Prep Kit 04/08/2021 12:00:00 AM EDT completed [facility] ([facility], ) Metronidazole 500 MG Oral Tablet [...] type / Coverage type Policy ID Covered constitution party ID Covered constitution party's relationship to carter Policy Carter Plan Information Medicaid [place] Medigap Part B [id number] Self [id number] [facility] Community Plan Commercial [id number] Self [id number] [facility] Community Plan Commercial [id number] Self [id number] [facility] Community Plan Commercial [id number] Self [id number] [facility] Community Plan Commercial [id number] Self [id number] [facility] Community Plan Commercial [id number] Self [id number] [facility] COMMUNITY PLAN MCDO [id number] [facility] NATIONAL ACCOUNT emp [id number] Employee [id number] [facility] Commercial Insurance Co. [id number] Self [id number] ANSI-Medicaid [id number] ANSI-Medicaid [id number] ANSI-Medicaid [id number] ANSI-Medicaid [id number] ANSI-Medicaid [id number] ANSI-Medicaid [id number] ANSI-Medicaid [id number] ANSI-Medicaid [id number] ANSI-Medicaid [id number] ANSI-Medicaid [id number] ANSI-Medicaid [id number] ANSI-Medicaid [id number] ANSI-Medicaid [id number] ANSI-Medicaid [id number] ANSI-Medicaid [id number] ANSI-Medicaid [id number] [facility] [id number] S [id number] ANSI-Medicaid [id number] ANSI-Medicaid [id number] ANSI-Medicaid [id number] ANSI-Medicaid [id number] ANSI-Medicaid [id number] ANSI-Medicaid [id number] ANSI-Medicaid [id number] ANSI-Medicaid [id number] ANSI-Medicaid [id number] ANSI-Medicaid [id number] MEDICAID [id number] SP [id number] [facility] [id number] SP [id number] [facility] [id number] SP [id number] SELF PAY ONLY [id number] SP [id number] [facility] [address] [facility] [id number] SP [id number] ANS-Medicaid [id number] ANSI-Medicaid [id number] [facility]-Medicaid [id number] ANS-Medicaid [id number] [facility]-Medicaid [id number] [facility]-Medicaid [id number] Problems, Conditions, and Diagnoses No Information Surgeries/Procedures Procedure Description Date Indications Data Source(s) OFFICE OUTPATIENT VISIT 15 MINUTES 04/30/2021 12:00:00 AM EDT [facility] ([facility], ) Colonoscopy Flexible Proximal To Splenic Flexure W/Biopsy Si ngle/ 04/15/2021 12:00:00 AM EDT [facility]NY ([facility], ) OFFICE OUTPATIENT NEW 45 MINUTES 03/14/2021 12:00:00 A M EDT [facility] Results ID Date Data Source [id number] 05/30/2021 02:45:00 PM EDT [facility] Name Value Range Interpretation Code Description Data Arlene rce(s) Supporting Document(s) SARS-CoV-2 RNA Resp Ql ADELFO+probe NOT DETECTED [facility] This lab was ordered by LISA mehta and reported by LISA Donnelly. ID Date Data Source [id number] 04/15/2021 09:34:00 AM EDT [facility]) Name Value Range Interpretation Code Description Data Arlene rce(s) Supporting Document(s) Surgical pathology study Laboratory test result [facility] ([facility]) FINAL DIAGNOSIS Sigmoid colon polyp, polypectomy: Tubular adenoma. Hyperplastic polyp is also present. 04/16/2021 - 115 CLINICAL DIAGNOSIS Diverticulitis 04/15/2021 - 1410 GROSS DIAGNOSIS Received in formalin labeled "sigmoid colon polyp" consists of two beltran fragments measuring 0.5 x 0.3 x 0.2 cm in aggregate. All in one. -SV 04/15/2021 - 1410 Signed JAYCE CARDONA MD 04/16/2021 1346 ID Date Data Source [id number] 04/10/2021 10:10:00 AM EDT [facility] Name Value Range Interpretation Code Description Data Arlene rce(s) Supporting Document(s) SARS-CoV-2 (COVID-19) RNA [Presence] in Respiratory specimen by ADELFO with probe detection Not Detected [facility] This lab was ordered by [facility] and reported by [employer] ID Date Data Source [id number] 03/02/2021 11:27:00 PM EDT [facility] Name Value Range Interpretation Code Description Data Arlene rce(s) Supporting Document(s) SARS coronavirus 2 RNA [Presence] in Res piratory specimen by ADELFO with probe detection NEGATIVE [facility] This lab was ordered by [facility] a nd reported by [facility]. ID Date Data Source [id number] 10/17/2020 01:16:00 PM EDT [facility] Name Value Range Interpretation Code Description Data Arlene rce(s) Supporting Document(s) SARS-CoV-2 (COVID-19) RNA [Presence] in Respiratory specimen by ADELFO with probe detection Not Detected [facility] This lab was ordered by [facility] and reported by [employer]. Procedure Social History No Information Vital Signs ID Date Data Source UNK Name Value Range Interpretation Code Description Data Source(s) Body weight 205.00 [lb_av] 205.00 [lb_av] MEDEN T ([facility]) Systolic blood pressure 118 mm[Hg] 118 mm[Hg] M EDENT ([facility]) Diastolic blood pressure 85 mm[Hg] 85 mm[Hg] [facility] ([facility]) Body mass index (BMI) [Ratio] 36.3 kg/m2 36.3 k g/m2 [facility] ([facility]) [place] body weight 115 [lb_av] 115 [lb_av] MEDEN T ([facility]) Body weight 92.988 kg 92.988 kg [facility] ([facility]) Body surface area Derived from formula 1.95 m2 1.95 m2 [facility] ([facility]) Body temperature 98.6 [degF] 98.6 [degF] [facility] ([facility]) Body height 63 [in_i] 63 [in_i] [facility] ([facility]) 5'3" Body weight 92.081 kg 92.081 kg [facility] ([facility]) Diastolic blood pressure 85 mm[Hg] 85 mm[Hg] [facility] ([facility]) Body temperature 98.5 [degF] 98.5 [degF] [facility] ([facility]) Body height 63 [in_i] 63 [in_i] [facility] ([facility]) 5'3" Body weight 203.00 [lb_av] 203.00 [lb_av] MEDEN T ([facility]) Body mass index (BMI) [Ratio] 36.0 kg/m2 36.0 k g/m2 [facility] ([facility]) [place] body weight 115 [lb_av] 115 [lb_av] JORDON Peters ([facility], ) Systolic blood pressure 131 mm[Hg] 131 mm[Hg] M WILVER ([facility], ) Body surface area Derived from formula 1.95 m2 1.95 m2 [facility] ([facility], )
--- NOTE | 2021-06-11 23:53 | REPVR ---
PROCEDURE INFORMATION: Exam: CT Abdomen And Pelvis With Contrast Exam date and time: 06/11/2021 10:51 PM Age: 41 years old Clinical indication: Abdominal pain; Generalized; Additional info: Abd pain, elev. Wbc, nv, constipation, HX divertic TECHNIQUE: Imaging protocol: Computed tomography of the abdomen and pelvis with contrast. Radiation optimization: All CT scans at this facility use at least one of these dose optimization techniques: automated exposure control; mA and/or kV adjustment per patient size (includes targeted exams where dose is matched to clinical indication); or iterative reconstruction. Contrast material: ISOVUE 370; Contrast volume: 100 ml; Contrast route: INTRAVENOUS (IV); COMPARISON: 1. CT ABD PELVIS W/O CONTRAST 2021-03-02 21:[address] ABD PELVIS W/O CONTRAST 2020-10-01 13:01 FINDINGS: Tubes, catheters and devices: Clip in the pelvis. Liver: Normal. No mass. Gallbladder and bile ducts: Normal. No calcified stones. No ductal dilation. Pancreas: Normal. No ductal dilation. Spleen: Normal. No splenomegaly. Adrenal glands: Normal. No mass. Kidneys and ureters: Normal. No hydronephrosis. Stomach and bowel: Sigmoid colonic wall thickening with several diverticula, and adjacent stranding and small amounts of streaky fluid. Evidence for moderate acute sigmoid diverticulitis. There is a vague area of fluid density within the sigmoid bowel wall measuring 2 cm with some mild rim enhancement, an abscess can appear similar. Appendix: No evidence of appendicitis. Intraperitoneal space: Unremarkable. No free air. No significant fluid collection. Vasculature: Unremarkable. No abdominal aortic aneurysm. Lymph nodes: Couple scattered small mesenteric lymph nodes, likely reactive. Urinary bladder: Unremarkable as visualized. Reproductive: Fluid in the uterus. Bones/joints: Moderate lumbar spondylosis. Soft tissues: Small fat protruding umbilical hernia. Right inguinal fat protruding hernia. IMPRESSION: 1. Sigmoid colonic wall thickening with several diverticula, and adjacent stranding and small amounts of streaky fluid. Evidence for moderate acute sigmoid diverticulitis. There is a vague area of fluid density within the sigmoid bowel wall measuring 2 cm with some mild rim enhancement, an abscess can appear similar. 2. Couple scattered small mesenteric lymph nodes, likely reactive. Recommend GI follow-up to exclude sigmoid mass. Electronically signed by: Jason Mccauley On 06/11/2021 23:52:59 PM
[2021-06-12] MEDS ORDERED: metroNIDAZOLE 500 MG in IV 1 EA IV ONE (00:35)
[2021-06-12] MEDS ORDERED: CIPROFLOXACIN 400 MG in IV 1 EA IV ONE (00:35)
[2021-06-12] MEDS ORDERED: ONDANSETRON 4MG/2ML VIAL IV ONE (00:40)
[2021-06-12] MEDS ORDERED: fentaNYL 100 MCG/2 ML INJECTION (J3010) IV ONE (00:40)
--- OUTSIDE RECORDS SUMMARY | 2021-06-12 01:20 | CCD ---
Author Author [facility] Organization [facility] Address Unknown Phone Unavailable Care Team Providers Care Lean [employer] Leader Name Role Phone Maring, Dar PA Unavailable [...] Unavailable BARKirby WEEMS MD Unavailable Unavailable Kirby AQIUNO MD Unavailable Unavailable BARANGÉLICAUGAKirby MD Unavailable Unavailable [...] is protected by Article 27-F of the [facility] Public Health law. If you continue you may have access to information: Regarding HIV / AIDS; Provided by facilities licensed or operated by the [facility] Office of Mental Health; or Provided by the [facility] Office for People With Developmental Disabilities. If such information is present, then the following [facility] mandated warning applies: This information has been [...] law may result in a fine or penitentiary sentence or both. A general authorization for the release of medical or other information is NOT sufficient authorization for further disc losure. Family History Family Member Name Family Member Gender Family Member Status Date o f Status Description Data Source(s) Unknown Male Problem [facility] ([facility]) Encounters Encounter Providers Location Date Indications Data Source(s ) Outpatient Attender: Dar NAVARRO 05/30/20 02:25:52 PM EDT - 05/30/2021 03:28:31 PM EDT [facility] ([facility] ) Outpatient Attender: Ann Bailon/Leonor/Geovany/R eindl 04/30/2021 01:00:00 PM EDT [facility] ([facility]) Outpatient Attender: LUAN Bailon/Leonor/Geovany/ Reindl 03/14/2021 10:00:00 AM EDT [facility] ([facility]) Medications Medication Brand Name Start Date Product [...] 04/09/2021 12:00:00 AM EDT ORAL completed [facility] ([facility], ) magnesium citrate 58.2 MG/ML Oral Solution Magnesium Citrate 04/09/2021 12:00:00 AM EDT completed [facility] ([facility], ) POLYETHYLENE GLYCOL 3350 142 MG/ML Oral Solution [Miralax] M iralax 04/09/2021 12:00:00 AM EDT completed [facility] ([facility], ) Suprep Bowel Prep Kit Suprep Bowel Prep Kit 04/08/2021 12:00:00 AM EDT completed [facility] ([facility], ) Metronidazole 500 MG Oral [...] Plan Information Medicaid [place] Medigap Part B [id number] Self [id number] [facility] Community Plan Commercial [id number] Self [id number] [facility] Community Plan Commercial [id number] Self [id number] [facility] Community Plan Commercial [id number] Self [id number] [facility] Community Plan Commercial [id number] Self [id number] [facility] Community Plan Commercial [id number] Self [id number] [facility] COMMUNITY PLAN MCDO [id number] [facility] NATIONAL ACCOUNT emp [id number] Employee [id number] [facility] Commercial Insurance Co. [id number] Self [id number] ANSI-Medicaid [id number] ANSI-Medicaid [id number] ANSI-Medicaid [id number] ANSI-Medicaid [id number] ANSI-Medicaid [id number] ANSI-Medicaid [id number] ANSI-Medicaid [id number] ANSI-Medicaid [id number] ANSI-Medicaid [id number] ANSI-Medicaid [id number] ANSI-Medicaid [id number] ANSI-Medicaid [id number] ANSI-Medicaid [id number] ANSI-Medicaid [id number] ANSI-Medicaid [id number] ANSI-Medicaid [id number] [facility] [id number] S [id number] ANSI-Medicaid [id number] ANSI-Medicaid [id number] ANSI-Medicaid [id number] ANSI-Medicaid [id number] ANSI-Medicaid [id number] ANSI-Medicaid [id number] ANSI-Medicaid [id number] ANSI-Medicaid [id number] ANSI-Medicaid [id number] ANSI-Medicaid [id number] MEDICAID [id number] SP [id number] [facility] [id number] SP [id number] [facility] [id number] SP [id number] SELF PAY ONLY [id number] SP [id number] PLAN [facility] [id number] SP [id number] ANS-Medicaid [id number] ANSI-Medicaid [id number] [facility]-Medicaid [id number] ANS-Medicaid [id number] [facility]-Medicaid [id number] [facility]-Medicaid [id number] Problems, Conditions, and Diagnoses No Information Surgeries/Procedures Procedure Description Date Indications Data Source(s) OFFICE OUTPATIENT VISIT 15 MINUTES 04/30/2021 12:00:00 AM EDT [facility] ([facility], ) Colonoscopy Flexible Proximal To Splenic Flexure W/Biopsy Si ngle/ 04/15/2021 12:00:00 AM EDT MEDGINNY ([facility], ) OFFICE OUTPATIENT NEW 45 MINUTES 03/14/2021 12:00:00 A M EDT [facility] Results ID Date Data Source [id number] 05/30/2021 02:45:00 PM EDT [facility] Name Value Range Interpretation Code Description Data Arlene rce(s) Supporting Document(s) SARS-CoV-2 RNA Resp Ql ADELFO+probe NOT DETECTED [facility] This lab was ordered by LISA mehta and reported by LISA Donnelly. ID Date Data Source [id number] 04/15/2021 09:34:00 AM EDT [facility]) Name Value Range Interpretation Code Description Data Arlene rce(s) Supporting Document(s) Surgical pathology study Laboratory test result [facility] ([facility]) FINAL DIAGNOSIS Sigmoid colon polyp, polypectomy: Tubular adenoma. Hyperplastic polyp is also present. 04/16/2021 - 115 CLINICAL DIAGNOSIS Diverticulitis 04/15/2021 - 1410 GROSS DIAGNOSIS Received in formalin labeled "sigmoid colon polyp" consists of two beltran fragments measuring 0.5 x 0.3 x 0.2 cm in aggregate. All in one. -SV 04/15/2021 - 1410 Signed JAYCE CARDONA MD 04/16/2021 1346 ID Date Data Source [id number] 04/10/2021 10:10:00 AM EDT [facility] Name Value Range Interpretation Code Description Data Arlene rce(s) Supporting Document(s) SARS-CoV-2 (COVID-19) RNA [Presence] in Respiratory specimen by ADELFO with probe detection Not Detected [facility] This lab was ordered by [facility] and reported by [employer] ID Date Data Source [id number] 03/02/2021 11:27:00 PM EDT [facility] Name Value Range Interpretation Code Description Data Arlene rce(s) Supporting Document(s) SARS coronavirus 2 RNA [Presence] in Res piratory specimen by ADELFO with probe detection NEGATIVE [facility] This lab was ordered by [facility] a nd reported by [facility]. ID Date Data Source [id number] 10/17/2020 01:16:00 PM EDT [facility] Name Value Range Interpretation Code Description Data Arlene rce(s) Supporting Document(s) SARS-CoV-2 (COVID-19) RNA [Presence] in Respiratory specimen by ADELFO with probe detection Not Detected [facility] This lab was ordered by [facility] and reported by [employer]. Procedure Social History No Information Vital Signs ID Date Data Source UNK Name Value Range Interpretation Code Description Data Source(s) Body weight 205.00 [lb_av] 205.00 [lb_av] MEDEN T ([facility]) Body mass index (BMI) [Ratio] 36.3 kg/m2 36.3 k g/m2 [facility] ([facility]) [place] body weight 115 [lb_av] 115 [lb_av] [facility] T ([facility]) Body weight 92.988 kg 92.988 kg [facility] ([facility]) Body surface area Derived from formula 1.95 m2 1.95 m2 [facility] ([facility]) Systolic blood pressure 118 mm[Hg] 118 mm[Hg] M EDENT ([facility]) Diastolic blood pressure 85 mm[Hg] 85 mm[Hg] [facility] ([facility]) Body temperature 98.6 [degF] 98.6 [degF] [facility] ([facility]) Body height 63 [in_i] 63 [in_i] [facility] ([facility]) 5'3" Body weight 92.081 kg 92.081 kg [facility] ([facility]) Diastolic blood pressure 85 mm[Hg] 85 mm[Hg] [facility] ([facility]) Body temperature 98.5 [degF] 98.5 [degF] [facility] ([facility]) Body height 63 [in_i] 63 [in_i] [facility] ([facility]) 5'3" Body weight 203.00 [lb_av] 203.00 [lb_av] [facility] T ([facility]) Body mass index (BMI) [Ratio] 36.0 kg/m2 36.0 k g/m2 [facility]) [place] body weight 115 [lb_av] 115 [lb_av] JORDON Peters ([facility], ) Systolic blood pressure 131 mm[Hg] 131 mm[Hg] M WILVER ([facility], ) Body surface area Derived from formula 1.95 m2 1.95 m2 [facility] ([facility], )
[2021-06-12] MEDS ORDERED: NS 1,000 ML IV SCH (01:55)
[2021-06-12 02:00] LABS: RSV AMPLIFICATION NEGATIVE (NEGATIVE)
[2021-06-12] MEDS ORDERED: fentaNYL 100 MCG/2 ML INJECTION (J3010) IV PRN (02:20)
--- NOTE | 2021-06-12 02:21 | HPEPDOC ---
[facility] Medical History & Physical Date of Admission Jun 12, 2021 Date of Service: Jun 12, 2021 Other Provider Patient does not have PCP. Attending Physician: NAT BAKER MD History and Physical CHIEF COMPLAINT: abdominal pain. HISTORY OF PRESENT ILLNESS: Patient is a 41-year-old female with a recent history of acute diverticulitis requiring surgery and percutaneous drainage 2 months ago. Patient reports that her bilateral lower abdominal pain started approximately 4 days ago, which she rates at a 6 out of 10 at this time. Patient reports that the sharp and achy pain increases to 9 out of 10 at times with some movement. Patient reports that the pain is alleviated by laying down. Patient reports that her last meal was at 8 PM on 06/10/2021, more than 24 hours ago. She states that she has been vomiting and has been having very little bowel movements (which the patient attributes to decreased appetite and not eating enough). Patient reports that she takes Aleve at home for chronic low back pain due to a history of sciatica and slipped disc which did not alleviate the abdominal pain. Patient also reports taking Metamucil after her last diverticular flare 2 months ago which was prescribed by Dr. Silva. Patient received IV fentanyl 25 mcg in the ED with alleviation of some of the pain. Patient also received her first doses of ciprofloxacin and metronidazole in the ED. CT abdomen was done in the ED. REVIEW OF SYSTEMS: General: Patient denies fevers, reports some night sweats a couple days ago HEENT: Patient denies headaches Cardiovascular: Patient denies chest pain Respiratory: Patient denies shortness of breath, cough GI: Patient reports bilateral lower abdominal pain, denies nausea or vomiting at this time however did have nausea and vomiting over the past 4 days. Denies any blood in stool. : Patient denies increased frequency or pain with urination Extremities: Patient denies swelling or pain in extremities Neurological: Patient denies numbness or tingling in legs Skin: Patient denies any new rashes or lesions. Hematologic: Patient denies any easy bruising. Lymphatic: Patient denies any lumps lumps or bumps in neck, axilla, or groin PAST MEDICAL /SURGICAL HISTORY: Diverticular disease Benign colonic polyps Sciatica, right-sided Slipped disc Left shoulder tendinitis Surgery for diverticular disease with perforation requiring surgery and drainage bag SOCIAL HISTORY: Marital status: Single, lives with ex-boyfriend Resides in: [place], in a two-story house, patient reports that her bedroom is on the second floor, there are no steps to get into her home Children: Patient has a daughter Maryan Selby, who is the patient's healthcare proxy to be contacted at [phone] Tobacco use: Patient reports that she smokes 15 cigarettes/day ETOH: Denies Illicit drug use: Marijuana use twice daily you smoking, denies any intravenous drug use FAMILY HISTORY: Reports that uncle has colon cancer however no significant family history in immediate family ALLERGIES: Please see below. HOME MEDICATIONS: Please see below. PHYSICAL EXAMINATION: Vital Signs Date Time Temp Pulse Resp B/P (MAP) Pulse Ox O2 Delivery O2 Flow Rate FiO2 06/11/21 18:57 98.9 85 16 139/55 (83) 100 Room Air GENERAL APPEARANCE: Patient in mild distress, sitting upright in the gurney, alert and oriented x3. HEENT: Normocephalic atraumatic head, no rhinorrhea, no otorrhea, no ocular discharge appreciated, EOMI, mucous membranes moist. CARDIOVASCULAR: Regular rate and rhythm, no murmurs rubs or gallops. LUNGS: Clear to auscultation bilaterally no wheezes rales or rhonchi. ABDOMEN: Soft, nondistended, tender in the bilateral lower abdominal quadrants, positive obturator sign, negative Edgar sign, no hepatosplenomegaly appreciated, no rebound tenderness in all abdominal quadrants. MUSCULOSKELETAL: Upper and lower extremity strength grossly 5 out of 5. EXTREMITIES: No clubbing, no edema, radial and pedal pulses +2. NEUROLOGICAL: No focal deficits, cranial nerves II to XII intact. PSYCHIATRIC: Affect full and open, alert and oriented x3, patient able to articulate and verbalize appropriately on exam. LABORATORY DATA: 06/11/21 21:00 IMAGING: CT abdomen pelvis with contrast, 06/11/2021 1. Sigmoid colonic wall thickening with several diverticula, and adjacent stranding and small amounts of streaky fluid. Evidence for moderate acute sigmoid diverticulitis. There is a vague area of fluid density within the sigmoid bowel wall measuring 2 cm with some mild rim enhancement, an abscess can appear similar. 2. Couple scattered small mesenteric lymph nodes, likely reactive. Recommend GI follow-up to exclude sigmoid mass. MICROBIOLOGY: COVID 19 neg ASSESSMENT/PLAN: #Acute diverticulitis, history of diverticulitis CT abdomen pelvis elicits evidence of moderate acute sigmoid diverticulitis with a microabscess measuring 2 cm in diameter Diet: Nothing by mouth Pain relief with fentanyl due to patient's adverse reactions to morphine at last hospitalization Continue IV fentanyl 25 mcg every 2 hours as needed for pain relief (for pain rating between 8-10). Continue ciprofloxacin and metronidazole Start IV pantoprazole 40 mg for stress ulcer prophylaxis NG tube not needed at this time as patient's last meal was more than 24 hours ago. Consider immediate surgical consult in the a.m. (Surgery usually required with micro abscesses measuring greater than 4 cm.) Surgical recommendations are greatly appreciated. #Anemia Plan; f/u iron panel and stool occult #Chronic low back pain Hold home Aleve at this time Patient's pain is being managed with IV fentanyl at this time for abdominal pain #History of diverticular disease Patient was counseled on the importance of establishing care with a primary care provider due to recurrence rate of diverticular disease #BMI greater than 30 Increased BMI is linked to increased recurrence of diverticulitis. Patient will need counseling and care after complete management and discharge from the hospital. -check A1C to screen for DM #DVT prophylaxis: Teds and sequentials, pharmacological therapy not advised at this time due to possible surgical intervention (Cleveland score is 4 due to patient's elevated BMI however due to possible surgical intervention mechanical therapy is recommended). Disposition: Inpatient status, home after at least 2 midnights stay expected. Home Medications Scheduled Ascorbic Acid/Vitamin E/Biotin (Hair Skin Nails-Biotin Gummies) 1 Each Tab.chew, 1 CHW PO DAILY Multivitamins (Thera M Plus Tablet) 1 Each Tablet, 1 TAB PO DAILY Psyllium Husk (with Sugar) (Metamucil Powder) 575 Gm Powder, 1 PKT PO DAILY Scheduled PRN Naproxen Sodium (Aleve) 220 Mg Tablet, 440 MG PO BID PRN for MILD PAIN (PS 1-4) Allergies Coded Allergies: morphine (Verified Adverse Reaction, Intermediate, Chest tightness, Chest pain , 04/09/21) A-FIB/CHADSVASC A-FIB History Current/History of A-Fib/PAF?: No Current PO Anticoag Therapy: No GME ATTESTATION GME ATTESTATION My faculty preceptor for this patient encounter was physically present during the encounter and was fully available. All aspects of the patient interview, examination, medical decision making process, and medical care plan development were reviewed and approved by the faculty preceptor. The faculty preceptor is aware and concurs with the plan as stated in the body of this note and will attest to such by his/her cosignature. ATTENDING NOTE I independently saw face to face, discussed the case with , edited the H&P and agree with the findings as documented. Aakash Herr DO Jun 12, 2021 02:20 NAT BAKER MD Jun 12, 2021 05:55
[2021-06-12] MEDS ORDERED: ALEV220T22 PO (02:24)
[2021-06-12] MEDS ORDERED: META28.32 PO (02:24)
[2021-06-12] MEDS ORDERED: HAIR1CHW2 PO (02:25)
[2021-06-12] MEDS ORDERED: VITMTA PO (02:25)
[2021-06-12] MEDS ORDERED: HOME MED LIST COMPLETE! XX SCH (02:25)
[2021-06-12] MEDS: LR 1,000 ML IV SCH ×2 (03:21→13:59)
[2021-06-12] MEDS ORDERED: LR 1,000 ML IV ONE (05:55)
[2021-06-12 08:00] LABS: BASO # 0.1 10^3/uL (0.0-0.2); BASO % 0.4 % (0.0-1.0); EOS # 0.1 10^3/uL (0.0-0.5); HEMOGLOBIN 10.9 g/dl (12.0-15.5); LYMPH # 1.2 10^3/uL (1.5-5.0); MEAN CORPUSCULAR HEMOGLOBIN 31.2 pg (27.0-33.0); MEAN CORPUSCULAR VOLUME 94.6 fl (80.0-96.0); MONO # 1.2 10^3/uL (0.0-0.8); MONO % 10.4 % (2.0-8.0); NEUTROPHILS # 9.2 10^3/uL (1.5-8.5); NEUTROPHILS % 77.7 % (36.0-66.0); PLATELET COUNT, AUTOMATED 296 10^3/uL (150-450); RED BLOOD COUNT 3.49 10^6/uL (4.00-5.40); WHITE BLOOD COUNT 11.8 10^3/uL (4.0-10.0)
[2021-06-12 08:35] LABS: HEMOGLOBIN A1c 5.6 %
[2021-06-12] MEDS: metroNIDAZOLE 500 MG in IV 1 EA IV SCH ×2 (08:43→17:10)
[2021-06-12] MEDS: PANTOPRAZOLE 40MG VIAL (C9113 PER 1) IV SCH (08:43)
--- NOTE | 2021-06-12 09:06 | CR.PDOC ---
General Date of Consultation: Jun 12, [address] Dr[address] Silva HISTORY OF PRESENT ILLNESS: The patient is a 41-year-old female with history of diverticulitis with abscess with history of percutaneous drain in February, olonoscopy as per Dr. Silva 04/15/2021 with diverticula in the sigmoid colon, descending and transverse colon, 2 small tubular adenoma/hyperplastic polyps removed. She states she developed recurrent abdominal pain last in the left lower quadrant, becoming severe at times, associated with nausea and vomiting. Initially she had some diarrhea but now bowel movements have decreased. She does not recall if she had constipation prior to the onset of the pain. She states she had been taking Metamucil after her last diverticulitis flare. She also reports subjective fever and chills. ALLERGIES: Please see below. HOME MEDICATIONS: Please see below. PAST MEDICAL HISTORY: Diverticulosis Colon polyps, tubular adenoma/hyperplastic Chronic low back pain/sciatica Left shoulder tendinitis PAST SURGICAL HISTORY: Tubal ligation Tonsillectomy Diverticular abscess drain placement 03/16 Colonoscopy 04/16 FAMILY HISTORY: Reports uncle with history of colon cancer. SOCIAL HISTORY: States she smokes 15 cigarettes/day. Marijuana twice daily EtOH, denies. REVIEW OF SYSTEMS: As noted in HPI otherwise 10 point review of systems unremarkable PHYSICAL EXAMINATION: VITAL SIGNS: Temperature 98.2, heart rate 80, respiratory rate 16, blood pressure 134/75, 97% room air. GENERAL APPEARANCE: Resting on stretcher in emergency department, appears in no acute distress. Easily arousable. HEENT: MMM RESPIRATORY: Lungs clear to auscultation CARDIOVASCULAR: S1-S2 regular rate rhythm ABDOMEN: Soft, nondistended, tenderness most pronounced with palpation in the left lower quadrant, also some tenderness noted in the right lower quadrant and left upper quadrant. No guarding or rebound. EXTREMITIES: No edema LABORATORY DATA: WBC 11.8, 11.7 on admission last evening. Hemoglobin 10.9. CMP this morning pending. CRP 9.37 CT abdomen/pelvis with contrast 1. Sigmoid colonic wall thickening with several diverticula, and adjacent stranding and small amounts of streaky fluid. Evidence for moderate acute sigmoid diverticulitis. There is a vague area of fluid density within the sigmoid bowel wall measuring 2 cm with some mild rim enhancement, an abscess can appear similar. 2. Couple scattered small mesenteric lymph nodes, likely reactive. Recommend GI follow-up to exclude sigmoid mass. Electronically signed by: Jason Mccauley On 06/11/2021 23:52:59 PM ASSESSMENT/PLAN: Acute diverticulitis. The patient is reviewed as per Dr. Silva. Imaging reviewed as per Dr. Silva. Continue n.p.o. IV fluids as per hospitalist Continue IV Cipro/Flagyl as per hospitalist Continue to monitor. Vital Signs/I&O Vital Signs Date Time Temp Pulse Resp B/P (MAP) Pulse Ox O2 Delivery O2 Flow Rate FiO2 06/12/21 08:42 18 06/12/21 06:54 98.2 06/12/21 06:45 80 97 Room Air 06/12/21 06:30 134/75 (94) I&O- Last 24 Hours up to 6 AM 06/12/21 06:00 Intake Total 1000 ml Balance 1000 ml Laboratory Data Labs 24H Laboratory Tests 2 06/11/21 21:00: Immature Granulocyte % (Auto) 0.3, Neutrophils (%) (Auto) 73.8H, Lymphocytes (%) (Auto) 15.7L, Monocytes (%) (Auto) 9.1H, Eosinophils (%) (Auto) 0.6, Basophils (%) (Auto) 0.5, Neutrophils # (Auto) 8.6H, Lymphocytes # (Auto) 1.8, Monocytes # (Auto) 1.1H, Eosinophils # (Auto) 0.1, Basophils # (Auto) 0.1, Nucleated Red Blood Cells % (auto) 0.0, Urine Color CHARAN, Urine Appearance CLOUDYH, Urine pH 7.0, Urine Specific [place] 1.024, Urine Protein 1+H, Urine Glucose (UA) NEGATIVE, Urine Ketones TRACEH, Urine Blood NEGATIVE, Urine Nitrite NEGATIVE, Urine Bilirubin NEGATIVE, Urine Urobilinogen 4.0H, Urine Leukocyte Esterase NEGATIVE, Urine WBC (Auto) 0, Urine RBC (Auto) 3, Urine Hyaline Casts (Auto) 0, Urine Bacteria (Auto) NEGATIVE, Urine Squamous Epithelial Cells 2, Urine Amorphous Sediment SMALLH, Urine Mucus (Auto) SMALL, Urine Sperm (Auto) , Total Bilirubin 0.4, Direct Bilirubin < 0.1, Aspartate Amino Transf (AST/SGOT) 17, Alanine Aminotransferase (ALT/SGPT) 18, Alkaline Phosphatase 67, Total Protein 7.0, Albumin 3.4, Albumin/Globulin Ratio 0.9L, Lipase 36L 06/11/21 21:09: POC Glucose (Misc Panel) 91, POC Sodium (Misc Panel) 137, POC Potassium (Misc Panel) 4.1, POC Chloride (Misc Panel) 104, POC Total CO2 (Misc Panel) 25.0, POC Blood Urea Nitrogen (Misc Panel 12, POC Ionized Calcium (Misc Panel) 4.7, POC Creatinine (Misc Panel) 0.5L, POC Hematocrit (Misc Panel) 36.0L 06/12/21 01:14: Coronavirus (COVID-19)(PCR) NEGATIVE, Influenza Type A (RT-PCR) NEGATIVE, Influenza Type B (RT-PCR) NEGATIVE, Respiratory Syncytial Virus (PCR) NEGATIVE 06/12/21 07:44: Immature Granulocyte % (Auto) 0.5, Neutrophils (%) (Auto) 77.7H, Lymphocytes (%) (Auto) 10.0L, Monocytes (%) (Auto) 10.4H, Eosinophils (%) (Auto) 1.0, Basophils (%) (Auto) 0.4, Neutrophils # (Auto) 9.2H, Lymphocytes # (Auto) 1.2L, Monocytes # (Auto) 1.2H, Eosinophils # (Auto) 0.1, Basophils # (Auto) 0.1, Nucleated Red Blood Cells % (auto) 0.0, Estimated Mean Plasma Glucose 114H, Hemoglobin A1c 5.6, Lactic Acid Level 0.7, C-Reactive Protein, Quantitative 9.37H CBC/BMP Laboratory Tests 06/11/21 21:00 06/12/21 07:44 Allergies Coded Allergies: morphine (Verified Adverse Reaction, Intermediate, Chest tightness, Chest pain , 04/09/21) Home Medications Scheduled Ascorbic Acid/Vitamin E/Biotin (Hair Skin Nails-Biotin Gummies) 1 Each Tab.chew, 1 CHW PO DAILY, (Reported) Multivitamins (Thera M Plus Tablet) 1 Each Tablet, 1 TAB PO DAILY, (Reported) Psyllium Husk (with Sugar) (Metamucil Powder) 575 Gm Powder, 1 PKT PO DAILY, (Reported) Scheduled PRN Naproxen Sodium (Aleve) 220 Mg Tablet, 440 MG PO BID PRN for MILD PAIN (PS 1-4), (Reported) Ann Connelly Jun 12, 2021 09:06
[2021-06-12 10:38] LABS: ALBUMIN 2.6 GM/DL (3.2-5.2); ALT/SGPT 18 U/L (12-78); BILIRUBIN,TOTAL 0.3 MG/DL (0.2-1.0); BLOOD UREA NITROGEN 8 MG/DL (7-18); CALCIUM LEVEL 8.3 MG/DL (8.5-10.1); CARBON DIOXIDE LEVEL 25 MEQ/L (21-32); CHLORIDE LEVEL 110 MEQ/L (98-107); CREATININE FOR GFR 0.49 MG/DL (0.55-1.30); FERRITIN 82 NG/ML (8-252); FOLATE 20.2 NG/ML; GLOMERULAR FILTRATION RATE > 60.0 (>58); GLUCOSE, FASTING 96 MG/DL (70-100); IRON (FE) 12 UG/DL (50-170); SODIUM LEVEL 140 MEQ/L (136-145); TOTAL IRON BINDING CAPACITY 199 UG/DL (250-450); TOTAL PROTEIN 5.5 GM/DL (6.4-8.2); VITAMIN B12 LEVEL 409 PG/ML
[2021-06-12 14:00] VITALS: BP 107/77
[2021-06-12] MEDS: CIPROFLOXACIN 400 MG in IV 1 EA IV SCH (15:03)
[2021-06-12 16:00] VITALS: BP 108/73
--- NOTE | 2021-06-12 16:13 | IPNPDOC ---
Subjective Date Seen The patient was seen on 06/12/21. Subjective Chief Complaint/HPI Patient said she has mild abdominal pain located in bilateral lower quadrant, pain is rated as 4/10, worse with palpation. She said that she had vomiting earlier. She denies current diarrhea, hematochezia. She denies fever, chills, chest pain, palpitation, dyspnea, or dysuria. A 10-point review of system negative aside from positive findings in HPI. Objective Physical Examination General Exam: Positive: Alert, Cooperative, No Acute Distress Eye Exam: Positive: Conjunctiva & lids normal; Negative: Sclera icteric ENT Exam: Positive: Atraumatic Neck Exam: Positive: Supple Chest Exam: Positive: Clear to auscultation, Normal air movement; Negative: Rales, Rhonchi, Wheezing, Diminished Heart Exam: Positive: Rate Normal, Regular Rhythm, Normal S1, Normal S2; Negative: Murmurs Abdomen Exam: Positive: Normal bowel sounds, Soft, Tenderness (in bilateral lo wer quadrants. No guarding or distention) Skin Exam: Positive: Nl turgor and temperature Neuro Exam: Positive: Normal Speech, Normal Tone Psych Exam: Positive: Mental status NL, Mood NL, Memory Intact, Oriented x 3 Assessment /Plan Assessment #Acute diverticulitis, history of diverticulitis -Abdominal pain with resolved diarrhea, mild leukocytosis. Lactic acid of 0.7 CT abdomen pelvis elicits evidence of moderate acute sigmoid diverticulitis with a microabscess measuring 2 cm in diameter -general surgery team was consulted and we appreciate general surgery team's assistance in patient care; recommended no surgery at this time. Continue Cipro and Flagyl -Patient now on full liquid diet, decrease LR to 60ml/hr Tylenol for pain control -Continue IV pantoprazole 40 mg for stress ulcer prophylaxis -Diet has been advanced after discussion with Surgery #Anemia, normocytic -B12 and folate within reference range #Chronic low back pain Tylenol PRN #Diverticulosis -will need to be on high fiber diet when diverticulitis resolves #BMI of 36.6 -Diet and exercise counseling needs to be done outpatient -A1C 5.6, no diabetes or pre-diabetes DVT prophylaxis: TEDS, SCD, and Lovenox Disposition: Diverticulitis on Cipro and Flagyl; pending clinical improvement. Likely d/c tomorrow Plan/VTE VTE Prophylaxis Ordered?: Yes VS, I&O, 24H, Fishbone Vital Signs/I&O Vital Signs Date Time Temp Pulse Resp B/P (MAP) Pulse Ox O2 Delivery O2 Flow Rate FiO2 06/12/21 16:00 98.9 73 17 108/73 (85) 96 Room Air I&O- Last 24 Hours up to 6 AM 06/12/21 06:00 Intake Total 1000 ml Balance 1000 ml Laboratory Data 24H LABS Laboratory Tests 2 06/11/21 21:00: Immature Granulocyte % (Auto) 0.3, Neutrophils (%) (Auto) 73.8H, Lymphocytes (%) (Auto) 15.7L, Monocytes (%) (Auto) 9.1H, Eosinophils (%) (Auto) 0.6, Basophils (%) (Auto) 0.5, Neutrophils # (Auto) 8.6H, Lymphocytes # (Auto) 1.8, Monocytes # (Auto) 1.1H, Eosinophils # (Auto) 0.1, Basophils # (Auto) 0.1, Nucleated Red Blood Cells % (auto) 0.0, Urine Color CHARAN, Urine Appearance CLOUDYH, Urine pH 7.0, Urine Specific [place] 1.024, Urine Protein 1+H, Urine Glucose (UA) NEGATIVE, Urine Ketones TRACEH, Urine Blood NEGATIVE, Urine Nitrite NEGATIVE, Urine Bilirubin NEGATIVE, Urine Urobilinogen 4.0H, Urine Leukocyte Esterase NEGATIVE, Urine WBC (Auto) 0, Urine RBC (Auto) 3, Urine Hyaline Casts (Auto) 0, Urine Bacteria (Auto) NEGATIVE, Urine Squamous Epithelial Cells 2, Urine Amorphous Sediment SMALLH, Urine Mucus (Auto) SMALL, Urine Sperm (Auto) , Total Bilirubin 0.4, Direct Bilirubin < 0.1, Aspartate Amino Transf (AST/SGOT) 17, Alanine Aminotransferase (ALT/SGPT) 18, Alkaline Phosphatase 67, Total Protein 7.0, Albumin 3.4, Albumin/Globulin Ratio 0.9L, Lipase 36L 06/11/21 21:09: POC Glucose (Misc Panel) 91, POC Sodium (Misc Panel) 137, POC Potassium (Misc Panel) 4.1, POC Chloride (Misc Panel) 104, POC Total CO2 (Misc Panel) 25.0, POC Blood Urea Nitrogen (Misc Panel 12, POC Ionized Calcium (Misc Panel) 4.7, POC Creatinine (Misc Panel) 0.5L, POC Hematocrit (Misc Panel) 36.0L 06/12/21 01:14: Coronavirus (COVID-19)(PCR) NEGATIVE, Influenza Type A (RT-PCR) NEGATIVE, Influenza Type B (RT-PCR) NEGATIVE, Respiratory Syncytial Virus (PCR) NEGATIVE 06/12/21 07:44: Immature Granulocyte % (Auto) 0.5, Neutrophils (%) (Auto) 77.7H, Lymphocytes (%) (Auto) 10.0L, Monocytes (%) (Auto) 10.4H, Eosinophils (%) (Auto) 1.0, Basophils (%) (Auto) 0.4, Neutrophils # (Auto) 9.2H, Lymphocytes # (Auto) 1.2L, Monocytes # (Auto) 1.2H, Eosinophils # (Auto) 0.1, Basophils # (Auto) 0.1, Nucleated Red Blood Cells % (auto) 0.0, Total Bilirubin 0.3, Aspartate Amino Transf (AST/SGOT) 15, Alanine Aminotransferase (ALT/SGPT) 18, Alkaline Phosphatase 60, Total Protein 5.5#L, Albumin 2.6#L, Albumin/Globulin Ratio 0.9L, Anion Gap 5L, Glomerular Filtration Rate > 60.0, Estimated Mean Plasma Glucose 114H, Hemoglobin A1c 5.6, Lactic Acid Level 0.7, Calcium Level 8.3L, Iron Level 12L, Total Iron Binding Capacity 199L, Transferrin % Saturation 6.0L, Ferritin 82, C- Reactive Protein, Quantitative 9.37H, Vitamin B12 Level 409, Folate 20.2 CBC/BMP Laboratory Tests 06/11/21 21:00 06/12/21 07:44 GME ATTESTATION GME ATTESTATION My faculty preceptor for this patient encounter was physically present during the encounter and was fully available. All aspects of the patient interview, examination, medical decision making process, and medical care plan development were reviewed and approved by the faculty preceptor. The faculty preceptor is aware and concurs with the plan as stated in the body of this note and will attest to such by his/her cosignature. ATTENDING NOTE I, Salvatore Linda, have independently examined this patient and performed my own physical exam, as well as reviewed the documentation and edited where necessary with the resident. For medical students we have performed the physical exam together and discussed medical decision making and I have verified the history. I have discussed in detail with the resident / student the findings and plan of treatment as documented by the resident / student and edited their note. I agree with their findings and treatment plan and have edited their documentation. I will continue to follow the patient during this hospital stay. GIDEON SMITH DO Jun 12, 2021 16:13 SALVATORE LINDA MD Jun 12, 2021 17:30
[2021-06-12] MEDS: ACETAMINOPHEN TAB 650MG DOSE (2X325MG) PO PRN ×2 (16:15→20:17)
[2021-06-12 22:00] VITALS: BP 129/87
[2021-06-13] MEDS: metroNIDAZOLE 500 MG in IV 1 EA IV SCH ×3 (01:29→17:59)
[2021-06-13] MEDS: ACETAMINOPHEN TAB 650MG DOSE (2X325MG) PO PRN ×2 (01:40→09:06)
[2021-06-13 02:00] VITALS: BP 114/57
[2021-06-13] MEDS: CIPROFLOXACIN 400 MG in IV 1 EA IV SCH ×2 (02:41→14:33)
[2021-06-13 06:00] VITALS: BP 127/66
[2021-06-13 07:26] LABS: BASO # 0.1 10^3/uL (0.0-0.2); BASO % 0.4 % (0.0-1.0); EOS # 0.1 10^3/uL (0.0-0.5); EOS % 0.6 % (0.0-3.0); HEMATOCRIT 34.5 % (36.0-47.0); HEMOGLOBIN 11.3 g/dl (12.0-15.5); LYMPH # 1.6 10^3/uL (1.5-5.0); LYMPH % 11.9 % (24.0-44.0); MEAN CORPUSCULAR HEMOGLOBIN 31.1 pg (27.0-33.0); MEAN CORPUSCULAR HGB CONC 32.8 g/dl (32.0-36.5); MONO # 1.1 10^3/uL (0.0-0.8); MONO % 8.2 % (2.0-8.0); NEUTROPHILS # 10.5 10^3/uL (1.5-8.5); NEUTROPHILS % 78.5 % (36.0-66.0); PLATELET COUNT, AUTOMATED 334 10^3/uL (150-450); RED BLOOD COUNT 3.63 10^6/uL (4.00-5.40); WHITE BLOOD COUNT 13.4 10^3/uL (4.0-10.0)
[2021-06-13 08:01] LABS: ALBUMIN 2.6 GM/DL (3.2-5.2); ALT/SGPT 19 U/L (12-78); BILIRUBIN,TOTAL 0.3 MG/DL (0.2-1.0); BLOOD UREA NITROGEN 6 MG/DL (7-18); CALCIUM LEVEL 8.7 MG/DL (8.5-10.1); CARBON DIOXIDE LEVEL 24 MEQ/L (21-32); CHLORIDE LEVEL 109 MEQ/L (98-107); CREATININE FOR GFR 0.57 MG/DL (0.55-1.30); GLOMERULAR FILTRATION RATE > 60.0 (>58); GLUCOSE, FASTING 93 MG/DL (70-100); POTASSIUM SERUM 3.9 MEQ/L (3.5-5.1); SODIUM LEVEL 138 MEQ/L (136-145); TOTAL PROTEIN 6.7 GM/DL (6.4-8.2)
[2021-06-13] MEDS ORDERED: INFLUENZA QUADRIVALENT PF VACCINE 0.5ML SYRINGE IM ONE (09:00)
--- NOTE | 2021-06-13 09:04 | IPNPDOC ---
Text Note Date of Service The patient was seen on 06/13/21. NOTE General surgery. Dr. Silva. The patient is a 41-year-old female with history of diverticulitis with abscess with history of percutaneous drain in February, reports 3 bouts of acute diverticulitis so far this year, colonoscopy as per Dr. Silva 04/15/2021 with diverticula in the sigmoid colon, descending and transverse colon, 2 small tubular adenoma/hyperplastic polyps removed. Admitted with acute diverticulitis 06/12/2021. This morning, the patient is up out of bed ambulating in the room. She states she tolerated full liquids last evening but this morning when she woke up and felt nauseated, she drank some antonieta wilfrid and she vomited. She brushed her teeth and vomited again. She still has some abdominal discomfort but does report some improvement. Reports soft stool x2. Afebrile. VSS. Awake and alert, ambulating in the room. No acute distress. MMM Respirations easy, no wheezing S1-S2 regular rate rhythm Abdomen is obese, soft, nondistended, tenderness is noted most pronounced in the left lower quadrant, some mild discomfort in the right lower quadrant and left upper quadrant. No guarding or rebound. WBC 13.4, 11.8 yesterday. CRP 12.60, compared with 9.37 yesterday. Assessment/plan Acute diverticulitis. The patient is reviewed and examined as per Dr. Silva this morning. Will advance to low residue diet. Continue with antibiotics as per hospitalist. Discussed with the patient this morning, would recommend outpatient follow-up with Dr. Silva for further discussion of elective sigmoid colectomy for recurrent diverticulitis. VS,Fishbone, I+O VS, Fishbone, I+O Laboratory Tests 06/13/21 07:03 Vital Signs Date Time Temp Pulse Resp B/P (MAP) Pulse Ox O2 Delivery O2 Flow Rate FiO2 06/13/21 06:00 98.4 75 20 127/66 (86) 98 Room Air I&O- Last 24 Hours up to 6 AM 06/13/21 05:59 Intake Total 2687 ml Output Total 275 ml Balance 2412 ml Ann Connelly Jun 13, 2021 09:04
[2021-06-13] MEDS: PANTOPRAZOLE 40MG VIAL (C9113 PER 1) IV SCH (09:05)
[2021-06-13] MEDS: ENOXAPARIN 40MG/0.4ML SYRINGE (J1650 PER 10MG) SC SCH (09:06)
[2021-06-13] MEDS ORDERED: ONDANSETRON 4MG/2ML VIAL IV PRN (09:35)
[2021-06-13 10:00] VITALS: BP 102/63
--- NOTE | 2021-06-13 10:48 | IPNPDOC ---
Subjective Date Seen The patient was seen on 06/13/21. Subjective Chief Complaint/HPI Patient reported that she is having lower abdominal pain in the midline rated 6/10, alleviated by standing and laying down, aggravated by sitting. She had loose but formed stool this morning. She also had 2 episode of emesis this morning. She denies fever, chills, hematochezia, dysuria, urinary urgency, or urinary frequency. A 10-point review of system negative aside from positive findings in HPI. Objective Physical Examination General Exam: Positive: Alert, Cooperative, No Acute Distress Eye Exam: Positive: Conjunctiva & lids normal; Negative: Sclera icteric ENT Exam: Positive: Atraumatic Neck Exam: Positive: Supple Chest Exam: Positive: Clear to auscultation, Normal air movement; Negative: Rales, Rhonchi, Wheezing, Diminished Heart Exam: Positive: Rate Normal, Regular Rhythm, Normal S1, Normal S2; Negative: Murmurs Abdomen Exam: Positive: Normal bowel sounds, Soft, Tenderness (Mild bilateral lower quadrants. Positive for rebound tenderness. No guarding or distention) Skin Exam: Positive: Nl turgor and temperature Neuro Exam: Positive: Normal Speech, Normal Tone Psych Exam: Positive: Mental status NL, Mood NL, Memory Intact, Oriented x 3 Assessment /Plan Assessment #Acute diverticulitis, history of diverticulitis -Abdominal pain with resolved diarrhea, mild leukocytosis. Lactic acid of 0.7 CT abdomen pelvis elicits evidence of moderate acute sigmoid diverticulitis with a microabscess measuring 2 cm in diameter -general surgery team was consulted and we appreciate general surgery team's assistance in patient care; recommended outpatient discussion for elective surgery for recurrent diverticulitis. Continue Cipro and Flagyl -Patient is advanced to low-residu Tylenol and Zofran PRN -Continue IV pantoprazole 40 mg for stress ulcer prophylaxis #Anemia, normocytic, stable -Hg remains stable -B12 and folate within reference range -iron studies consistent with inflammatory anemia #Chronic low back pain Tylenol PRN #Diverticulosis -will need to be on high fiber/low residue diet when diverticulitis resolves #BMI of 36.6 -Will need outpatient diet and exercise counseling -A1C 5.6, no diabetes or pre-diabetes DVT prophylaxis: TEDS, SCD, and Lovenox Disposition: Diverticulitis on Cipro and Flagyl; pending clinical improvement. Anticipate 1 more night or stay Plan/VTE VTE Prophylaxis Ordered?: Yes VS, I&O, 24H, Fishbone Vital Signs/I&O Vital Signs Date Time Temp Pulse Resp B/P (MAP) Pulse Ox O2 Delivery O2 Flow Rate FiO2 06/13/21 06:00 98.4 75 20 127/66 (86) 98 Room Air I&O- Last 24 Hours up to 6 AM 06/13/21 06:00 Intake Total 2687 ml Output Total 275 ml Balance 2412 ml Laboratory Data 24H LABS Laboratory Tests 2 06/13/21 07:03: Immature Granulocyte % (Auto) 0.4, Neutrophils (%) (Auto) 78.5H, Lymphocytes (%) (Auto) 11.9L, Monocytes (%) (Auto) 8.2H, Eosinophils (%) (Auto) 0.6, Basophils (%) (Auto) 0.4, Neutrophils # (Auto) 10.5H, Lymphocytes # (Auto) 1.6, Monocytes # (Auto) 1.1H, Eosinophils # (Auto) 0.1, Basophils # (Auto) 0.1, Nucleated Red Blood Cells % (auto) 0.0, Anion Gap 5L, Glomerular Filtration Rate > 60.0, Calcium Level 8.7, Total Bilirubin 0.3, Aspartate Amino Transf (AST/SGOT) 23, Alanine Aminotransferase (ALT/SGPT) 19, Alkaline Phosphatase 70, C-Reactive Protein, Quantitative 12.60H, Total Protein 6.7#, Albumin 2.6L, Albumin/Globulin Ratio 0.6L CBC/BMP Laboratory Tests 06/13/21 07:03 GME ATTESTATION GME ATTESTATION My faculty preceptor for this patient encounter was physically present during the encounter and was fully available. All aspects of the patient interview, examination, medical decision making process, and medical care plan development were reviewed and approved by the faculty preceptor. The faculty preceptor is aware and concurs with the plan as stated in the body of this note and will attest to such by his/her cosignature. ATTENDING NOTE I, Salvatore Linda, have independently examined this patient and performed my own physical exam, as well as reviewed the documentation and edited where necessary with the resident. For medical students we have performed the physical exam together and discussed medical decision making and I have verified the history. I have discussed in detail with the resident / student the findings and plan of treatment as documented by the resident / student and edited their note. I agree with their findings and treatment plan and have edited their documentation. I will continue to follow the patient during this hospital stay. GIDEON SMITH DO Jun 13, 2021 10:48 SALVATORE LINDA MD Jun 13, 2021 11:31
[2021-06-13 14:00] VITALS: BP 104/61
[2021-06-13] MEDS: KETOROLAC 30 MG/ML 1ML VIAL IV PRN (14:33)
[2021-06-13 22:00] VITALS: BP 102/61
[2021-06-14] MEDS: KETOROLAC 30 MG/ML 1ML VIAL IV PRN ×3 (01:25→18:01)
[2021-06-14] MEDS: metroNIDAZOLE 500 MG in IV 1 EA IV SCH ×3 (01:26→17:56)
[2021-06-14 02:00] VITALS: BP 112/70
[2021-06-14] MEDS: CIPROFLOXACIN 400 MG in IV 1 EA IV SCH ×2 (02:33→14:24)
[2021-06-14 06:00] VITALS: BP 115/71
[2021-06-14 08:54] LABS: BASO % 0.3 % (0.0-1.0); EOS # 0.1 10^3/uL (0.0-0.5); EOS % 0.6 % (0.0-3.0); HEMATOCRIT 32.5 % (36.0-47.0); HEMOGLOBIN 10.7 g/dl (12.0-15.5); LYMPH # 1.4 10^3/uL (1.5-5.0); LYMPH % 10.9 % (24.0-44.0); MEAN CORPUSCULAR HEMOGLOBIN 31.1 pg (27.0-33.0); MEAN CORPUSCULAR HGB CONC 32.9 g/dl (32.0-36.5); MEAN CORPUSCULAR VOLUME 94.5 fl (80.0-96.0); MONO # 1.1 10^3/uL (0.0-0.8); MONO % 8.8 % (2.0-8.0); NEUTROPHILS # 10.1 10^3/uL (1.5-8.5); PLATELET COUNT, AUTOMATED 335 10^3/uL (150-450); RED BLOOD COUNT 3.44 10^6/uL (4.00-5.40); WHITE BLOOD COUNT 12.8 10^3/uL (4.0-10.0)
--- NOTE | 2021-06-14 09:04 | IPNPDOC ---
Text Note Date of Service The patient was seen on 06/14/21. NOTE General surgery. Dr. Silva. The patient is a 41-year-old female with history of diverticulitis with abscess with history of percutaneous drain in February, reports 3 bouts of acute diverticulitis so far this year, colonoscopy as per Dr. Silva 04/15/2021 with diverticula in the sigmoid colon, descending and transverse colon, 2 small tubular adenoma/hyperplastic polyps removed. Admitted with acute diverticulitis 06/12/2021. This morning, the patient states she is still having pain but this is mostly when she feels she needs to have a bowel movement and has a bowel movement. Otherwise she could go several hours without any discomfort. She is tolerating low residue diet. No nausea or vomiting. Afebrile. Heart rate 66, respiratory rate 18, blood pressure 115/71, 97% room air. Awake and alert, resting in bed Lungs are clear to auscultation S1-S2 regular rate rhythm Abdomen is soft, nondistended, still with tenderness noted in the left lower quadrant, this is about the same as yesterday. This morning's labs are pending including CBC, CMP, CRP. Assessment/plan History of recurrent diverticulitis, acute diverticulitis. The patient is reviewed and examined as per Dr. Silva this morning. The patient remains afebrile. Tolerating low residue diet. Continue with antibiotics as per hospitalist. The patient is noting persistent left lower quadrant pain but this seems to be more associated when she feels she needs to have a bowel movement and has a bow el movement. Otherwise she has several hours where she feels good and is not having pain. She did receive Toradol which she states is helpful to relieve the pain. Otherwise she has taken just Tylenol. Discussed with the hospitalist possibly adding Percocet as needed to help control her pain. VS,Fishbone, I+O VS, Fishbone, I+O Laboratory Tests 06/14/21 08:19 Vital Signs Date Time Temp Pulse Resp B/P (MAP) Pulse Ox O2 Delivery O2 Flow Rate FiO2 06/14/21 06:00 97.8 66 18 115/71 (86) 97 Room Air I&O- Last 24 Hours up to 6 AM 06/14/21 06:00 Intake Total 1300 ml Output Total 1375 ml Balance -75 ml Ann Connelly Jun 14, 2021 09:04
[2021-06-14] MEDS ORDERED: DICYCLOMINE 10 MG CAP PO PRN (09:05)
[2021-06-14] MEDS ORDERED: NORCO, ANEXSIA 5/325MG TABLET (HYDROcodone/ACETAMINOPHEN) PO PRN (09:05)
--- NOTE | 2021-06-14 09:28 | REP ---
INDICATION: Chest pressure COMPARISON: None. TECHNIQUE: PA and lateral. FINDINGS: The mediastinum and cardiac silhouette are normal. The lung cruz are clear and without acute consolidation, effusion, or pneumothorax. The skeletal structures are intact and normal. IMPRESSION: No acute cardiopulmonary process. <Electronically signed by Fenrandez Turner > 06/14/21 0916
[2021-06-14 09:29] LABS: ALBUMIN 2.7 GM/DL (3.2-5.2); ALT/SGPT 16 U/L (12-78); BILIRUBIN,TOTAL 0.3 MG/DL (0.2-1.0); BLOOD UREA NITROGEN 10 MG/DL (7-18); CALCIUM LEVEL 8.8 MG/DL (8.5-10.1); CARBON DIOXIDE LEVEL 25 MEQ/L (21-32); CHLORIDE LEVEL 106 MEQ/L (98-107); CREATININE FOR GFR 0.48 MG/DL (0.55-1.30); GLOMERULAR FILTRATION RATE > 60.0 (>58); GLUCOSE, FASTING 90 MG/DL (70-100); POTASSIUM SERUM 3.6 MEQ/L (3.5-5.1); SODIUM LEVEL 139 MEQ/L (136-145)
[2021-06-14] MEDS: ENOXAPARIN 40MG/0.4ML SYRINGE (J1650 PER 10MG) SC SCH (09:34)
[2021-06-14] MEDS: PANTOPRAZOLE 40MG VIAL (C9113 PER 1) IV SCH (09:34)
[2021-06-14 09:47] LABS: CK-MB VALUE MASS 2.8 NG/ML (<3.6); CPK CREATINE PHOSPHOKINASE 106 U/L (26-192); MB/CK RELATIVE INDEX 2.64 (< OR =4); TROPONIN I < 0.02 NG/ML (< 0.10)
[2021-06-14] MEDS ORDERED: ATORVASTATIN 20 MG TAB PO ONE (10:10)
[2021-06-14] MEDS ORDERED: ASPIRIN 81 MG CHEW TABLET PO ONE (10:10)
--- NOTE | 2021-06-14 10:23 | IPNPDOC ---
Subjective Date Seen The patient was seen on 06/14/21. Subjective Chief Complaint/HPI Patient was examined at bedside. She continues to have lower abdominal pain and emesis. The abdominal pain is described as a 6/10 constant pain, alleviated by standing and laying down, and aggravated by sitting down. She has intermittent chest pressure in precordial region while laying down only, reported to be going on for a few days. Denies chest pain, palpitation, or dyspnea. She denies fever or chills. A 10-point review of system negative aside from positive findings in HPI. Objective Physical Examination General Exam: Positive: Alert, Cooperative, No Acute Distress Eye Exam: Positive: Conjunctiva & lids normal; Negative: Sclera icteric ENT Exam: Positive: Atraumatic Neck Exam: Positive: Supple Chest Exam: Positive: Clear to auscultation, Normal air movement; Negative: Rales, Rhonchi, Wheezing, Diminished Heart Exam: Positive: Rate Normal, Regular Rhythm, Normal S1, Normal S2; Negative: Murmurs Abdomen Exam: Positive: Normal bowel sounds, Soft, Tenderness (Mild bilateral lower quadrants. No guarding or distention) Extremity Exam: Positive: Other (Capillary regill<2 seconds) Skin Exam: Positive: Nl turgor and temperature Neuro Exam: Positive: Normal Speech, Normal Tone Psych Exam: Positive: Mental status NL, Mood NL, Memory Intact, Oriented x 3 Assessment /Plan Assessment #Acute diverticulitis, history of diverticulitis -Abdominal pain with mild amount of stool, mild leukocytosis. Lactic acid of 0.7. -Patient continues to have abdominal pain and emesis. Recheck CRP, if worsened CRP, will order repeat CT abd/pelvis to rule out abscess formation CT abdomen pelvis with evidence of moderate acute sigmoid diverticulitis with a microabscess measuring 2 cm in diameter -general surgery team was consulted and we appreciate general surgery team's assistance in patient care; recommended outpatient discussion for elective surgery for recurrent diverticulitis. Continue Cipro and Flagyl -Continue low residue diet Tylenol, Toradol, Toradol, and Zofran PRN. Start Gowen and Bentyl PRN -Continue IV pantoprazole 40 mg for stress ulcer prophylaxis #Chest pressure, likely from anxiety, unlikely ACS -Chest pressure in midline precordial region while laying down only. Denies chest pain, palpitation, or dyspnea -First set of cardiac marker negative, follow up cardiac marker. EKG pending. Aspirin and atorvastatin ordered #Anemia, normocytic, stable around 19-11 -Hg remains stable -B12 and folate within reference range -iron studies consistent with inflammatory anemia -Follow up CBC #Chronic low back pain Tylenol PRN #Diverticulosis -will need to be on high fiber/low residue diet when diverticulitis resolves #BMI of 36.6 -Will need outpatient diet and exercise counseling -A1C 5.6, no diabetes or pre-diabetes DVT prophylaxis: TEDS, SCD, and Lovenox Disposition: Diverticulitis on Cipro and Flagyl; pending clinical improvement. Anticipate 1 to 2 more nights of stay Plan/VTE VTE Prophylaxis Ordered?: Yes VS, I&O, 24H, Fishbone Vital Signs/I&O Vital Signs Date Time Temp Pulse Resp B/P (MAP) Pulse Ox O2 Delivery O2 Flow Rate FiO2 06/14/21 06:00 97.8 66 18 115/71 (86) 97 Room Air I&O- Last 24 Hours up to 6 AM 06/14/21 06:00 Intake Total 1300 ml Output Total 1375 ml Balance -75 ml Laboratory Data 24H LABS Laboratory Tests 2 06/13/21 13:49: Lab Scanned Report Miscellaneous Lab 06/14/21 08:19: Immature Granulocyte % (Auto) 0.4, Neutrophils (%) (Auto) 79.0H, Lymphocytes (%) (Auto) 10.9L, Monocytes (%) (Auto) 8.8H, Eosinophils (%) (Auto) 0.6, Basophils (%) (Auto) 0.3, Neutrophils # (Auto) 10.1H, Lymphocytes # (Auto) 1.4L, Monocytes # (Auto) 1.1H, Eosinophils # (Auto) 0.1, Basophils # (Auto) 0.0, Nucleated Red Blood Cells % (auto) 0.0, Anion Gap 8, Glomerular Filtration Rate > 60.0, Calcium Level 8.8, Magnesium Level 2.0, Total Bilirubin 0.3, Aspartate Amino Transf (AST/SGOT) 12, Alanine Aminotransferase (ALT/SGPT) 16, Alkaline Phosphatase 71, Total Creatine Kinase 106, Creatine Kinase MB 2.8, Creatine Kinase MB Relative Index 2.64, Troponin I < 0.02, C-Reactive Protein, Quantitative 10.30H, Total Protein 6.0L, Albumin 2.7L, Albumin/Globulin Ratio 0.8L CBC/BMP Laboratory Tests 06/14/21 08:19 GME ATTESTATION GME ATTESTATION My faculty preceptor for this patient encounter was physically present during the encounter and was fully available. All aspects of the patient interview, examination, medical decision making process, and medical care plan development were reviewed and approved by the faculty preceptor. The faculty preceptor is aware and concurs with the plan as stated in the body of this note and will a ttest to such by his/her cosignature. ATTENDING NOTE I, Salvatore Linda, have independently examined this patient and performed my own physical exam, as well as reviewed the documentation and edited where necessary with the resident. For medical students we have performed the physical exam together and discussed medical decision making and I have verified the history. I have discussed in detail with the resident / student the findings and plan of treatment as documented by the resident / student and edited their note. I agree with their findings and treatment plan and have edited their documentation. I will continue to follow the patient during this hospital stay. GIDEON SMITH DO Jun 14, 2021 10:23 SALVATORE LINDA MD Jun 14, 2021 11:29
[2021-06-14 13:54] LABS: CK-MB VALUE MASS < 1.0 NG/ML (<3.6); CPK CREATINE PHOSPHOKINASE 85 U/L (26-192); MB/CK RELATIVE INDEX 1.18 (< OR =4); TROPONIN I < 0.02 NG/ML (< 0.10)
[2021-06-14 14:00] VITALS: BP 110/69
--- NOTE | 2021-06-14 16:58 | ECGEPIP ---
[facility] Test Date: 2021-06-14 Pat Name: BERTIN JIM Department: Room: [place] [address] Gender: Female Technology Specialist: YEMI : [id number] Requested By: GIDEON SMITH Order Number: [id number] Reading MD: Jason Pérez Measurements Intervals [place] Rate: 70 P: 63 KS: 118 QRS: 57 QRSD: 98 T: 32 QT: 378 QTc: 408 Interpretive Statements Normal sinus rhythm Within normal limits. No prior ECG available for comparison at the time of interpretation. Electronically Signed on 06-14-2021 16:57:48 EST by Jason Pérez
[2021-06-14 18:00] VITALS: BP 120/62
[2021-06-14] MEDS ORDERED: LACTOBACILLUS ACIDOPHILUS CAP (BACID) PO SCH (18:00)
[2021-06-14 21:46] VITALS: BP 126/82
[2021-06-15 02:00] VITALS: BP 117/80
[2021-06-15] MEDS: metroNIDAZOLE 500 MG in IV 1 EA IV SCH (02:16)
[2021-06-15] MEDS: KETOROLAC 30 MG/ML 1ML VIAL IV PRN (03:43)
[2021-06-15] MEDS: CIPROFLOXACIN 400 MG in IV 1 EA IV SCH (03:43)
[2021-06-15 06:00] VITALS: BP 107/61
[2021-06-15 07:10] LABS: BASO # 0.1 10^3/uL (0.0-0.2); BASO % 0.6 % (0.0-1.0); EOS # 0.1 10^3/uL (0.0-0.5); HEMATOCRIT 31.6 % (36.0-47.0); HEMOGLOBIN 10.3 g/dl (12.0-15.5); LYMPH # 1.8 10^3/uL (1.5-5.0); LYMPH % 20.2 % (24.0-44.0); MEAN CORPUSCULAR HEMOGLOBIN 30.7 pg (27.0-33.0); MEAN CORPUSCULAR HGB CONC 32.6 g/dl (32.0-36.5); MEAN CORPUSCULAR VOLUME 94.3 fl (80.0-96.0); MONO # 0.8 10^3/uL (0.0-0.8); MONO % 9.3 % (2.0-8.0); NEUTROPHILS # 6.2 10^3/uL (1.5-8.5); NEUTROPHILS % 68.6 % (36.0-66.0); PLATELET COUNT, AUTOMATED 326 10^3/uL (150-450); RED BLOOD COUNT 3.35 10^6/uL (4.00-5.40)
[2021-06-15 07:50] LABS: ALBUMIN 2.7 GM/DL (3.2-5.2); ALT/SGPT 18 U/L (12-78); BILIRUBIN,TOTAL 0.2 MG/DL (0.2-1.0); BLOOD UREA NITROGEN 15 MG/DL (7-18); C REACTIVE PROTEIN QUANTITATIV 7.66 MG/DL (0.00-0.30); CALCIUM LEVEL 8.8 MG/DL (8.5-10.1); CARBON DIOXIDE LEVEL 25 MEQ/L (21-32); CHLORIDE LEVEL 110 MEQ/L (98-107); CREATININE FOR GFR 0.62 MG/DL (0.55-1.30); GLOMERULAR FILTRATION RATE > 60.0 (>58); GLUCOSE, FASTING 124 MG/DL (70-100); POTASSIUM SERUM 4.2 MEQ/L (3.5-5.1); SODIUM LEVEL 141 MEQ/L (136-145)
[2021-06-15] MEDS: PANTOPRAZOLE 40MG VIAL (C9113 PER 1) IV SCH (09:50)
[2021-06-15] MEDS: ENOXAPARIN 40MG/0.4ML SYRINGE (J1650 PER 10MG) SC SCH (09:51)
[2021-06-15] MEDS ORDERED: ONDA4TAB6 PO (10:41)
[2021-06-15] MEDS ORDERED: DICY1CAP8 PO (10:41)
[2021-06-15] MEDS ORDERED: CIPR750T2 PO (10:41)
[2021-06-15] MEDS ORDERED: RISATAB3 PO ×2 (10:41→10:43)
[2021-06-15] MEDS ORDERED: METR-265 PO (10:42)
[2021-06-15] MEDS ORDERED: HYDR-3715 PO ×2 (10:45→10:49)
--- NOTE | 2021-06-15 13:39 | DS.PDOC ---
Discharge Summary General Date of Admission Jun 12, 2021 at 01:08 Date of Discharge 06/15/2021 Attending Physician: SALVATORE MAHER MD Specialist/Consultants Involve: LUNA AQUINO MD Discharge Summary PROCEDURES PERFORMED DURING STAY: [None]. ADMITTING DIAGNOSES: 1. Acute diverticulitis, history of diverticulitis 2. Anemia 3. Chronic low back pain 4. History of diverticular disease 5. BMI greater than 30 DISCHARGE DIAGNOSES: 1. Acute diverticulitis, improved 2. History of diverticulitis 3. Chest pressure, ACS ruled out; resolved 4. Anemia, normocytic, stable 5. Chronic low back pain 6. Diverticulosis 7. BMI of 36.6 COMPLICATIONS/CHIEF COMPLAINT: Acute Diverticulitis. HISTORY OF PRESENT ILLNESS: Ms. Hannah is a 41 year old female with a history of acute diverticulitis requiring surgery and percutaneous drainage about 2 months ago presented to [facility] due to 4 days of bilateral lower abdominal pain. The abdominal pain was sharp/achy pain which rated 6/10 which increases to 9/10 with movement. Alleviating factor of the abdominal pain includes laying down. Patient reported emesis and decreased appetite with little bowel movements. HOSPITAL COURSE: Patient was found to have mild leukocytosis with elevated CRP. She was given IV Cipro and Flagyl. CT abdomen pelvis with evidence of moderate acute sigmoid diverticulitis with a microabscess measuring 2 cm in diameter. General surgery was consulted and they have independently reviewed the imaged; no inpatient procedure was recommended. She was started on pain control and anti-nausea medication. On 06/14/2021, patient reported chest pressure in midline precordial without chest pain, palpitation, or dyspnea. She had 2 sets of troponin<0.02. She also had mild anemia with anemia workup consistent with inflammatory anemia, and Hg remains roughly stable. Patient's continues to be afebrile. Her emesis gradually resolved with improved CRP. On the day of discharge, patient reported improvem ent of her abdominal pain with oral medications and was beginning to have now semi-formed stool. She denies nausea,vomiting, hematochezia, chest pain, palpitation, dyspnea, numbness, tingling, or loss of sensation. Patient is determined to be stable for discharge with PO antibiotics and outpatient follow up afterwards. She has been instructed to follow up with general surgery on discharge, remain compliant with treatment plan and medications and return to the ER if she experienced any problems. DISCHARGE MEDICATIONS: Please see below. ALLERGIES: Please see below. PHYSICAL EXAMINATION ON DISCHARGE: VITAL SIGNS: Please see below. GENERAL: Alert and awake, not in acute distress HEENT: Head normocephalic, atraumatic, no conjunctiva infections NECK: Supple CARDIOVASCULAR EXAMINATION: Regular rate and rhythm, no murmur, normal S1 and S2 RESPIRATORY EXAMINATION: Clear to auscultation bilaterally. No rales, wheezing, or rhonchi. No labored breathing ABDOMINAL EXAMINATION: Soft, no guarding, no distension. Mild tenderness to palpation in bilateral lower quadrants. EXTREMITIES: No tenderness in bilateral calves. No swelling/edema in bilateral lower extremity SKIN: No obvious cyanosis or erythema noted NEUROLOGICAL EXAMINATION: Memory grossly intact. A&OX3 PSYCHIATRIC EXAMINATION: Mood and affect stable LABORATORY DATA: Please see below. IMAGING: CXR showed "No acute cardiopulmonary process." CT abd/pelvis showed "1. Sigmoid colonic wall thickening with several diverticula, and adjacent stranding and small amounts of streaky fluid. Evidence for moderate acute sigmoid diverticulitis. There is a vague area of fluid density within the sigmoid bowel wall measuring 2 cm with some mild rim enhancement, an abscess can appear similar. 2. Couple scattered small mesenteric lymph nodes, likely reactive. Recommend GI follow-up to exclude sigmoid mass. " PROGNOSIS: [Good] ACTIVITY: [As tolerated]. DIET: Low residue diet DISCHARGE PLAN AND INSTRUCTIONS: 1. Follow up with PCP and General surgery within 7 days 2. Remain compliant with treatment plan and medications 3. Return to hospital if you experience any problems ITEMS TO FOLLOWUP ON ON OUTPATIENT: 1. Diverticulitis with history of recurrent diverticulitis/discussion for elective 2. Diverticulosis 3. BMI of 36.6 4. Anemia 5. Chronic low back pain DISCHARGE CONDITION: [Stable]. TIME SPENT ON DISCHARGE: [35] minutes. Vital Signs/I&Os Vital Signs Date Time Temp Pulse Resp B/P (MAP) Pulse Ox O2 Delivery O2 Flow Rate FiO2 06/15/21 10:23 18 Room Air 06/15/21 06:00 97.4 56 107/61 (76) 99 I&O- Last 24 Hours up to 6 AM 06/15/21 06:00 Intake Total 1420 ml Output Total 850 ml Balance 570 ml Laboratory Data Labs 24H Laboratory Tests 2 06/15/21 06:41: Immature Granulocyte % (Auto) 0.3, Neutrophils (%) (Auto) 68.6H, Lymphocytes (%) (Auto) 20.2L, Monocytes (%) (Auto) 9.3H, Eosinophils (%) (Auto) 1.0, Basophils (%) (Auto) 0.6, Neutrophils # (Auto) 6.2, Lymphocytes # (Auto) 1.8, Monocytes # (Auto) 0.8, Eosinophils # (Auto) 0.1, Basophils # (Auto) 0.1, Nucleated Red Blood Cells % (auto) 0.0, Anion Gap 6L, Glomerular Filtration Rate > 60.0, Calcium Level 8.8, Total Bilirubin 0.2, Aspartate Amino Transf (AST/SGOT) 14, Alanine Aminotransferase (ALT/SGPT) 18, Alkaline Phosphatase 69, C-Reactive Protein, Quantitative 7.66H, Total Protein 6.0L, Albumin 2.7L, Albumin/Globulin Ratio 0.8L CBC/BMP Laboratory Tests 06/15/21 06:41 Discharge Medications Scheduled Ascorbic Acid/Vitamin E/Biotin (Hair Skin Nails-Biotin Gummies) 1 Each Tab.chew, 1 CHW PO DAILY, (Reported) Ciprofloxacin HCl (Ciprofloxacin HCl) 750 Mg Tablet, 750 MG PO Q12H L.acidoph/L.bulg/B.bif/S.therm (Sowmya-Bid Caplet) 1 Each Tablet, 1 EA PO Q12H Metronidazole (Metronidazole) 500 Mg Tablet, 500 MG PO Q6H Multivitamins (Thera M Plus Tablet) 1 Each Tablet, 1 TAB PO DAILY, (Reported) Psyllium Husk (with Sugar) (Metamucil Powder) 575 Gm Powder, 1 PKT PO DAILY, (Reported) Scheduled PRN Dicyclomine HCl (Dicyclomine HCl) 10 Mg Capsule, 10 MG PO Q8HP PRN for ABDOMINAL PAIN Hydrocodone/Acetaminophen (Hydrocodone-Acetamin 5-325 mg) 1 Each Tablet, 1 TAB PO Q6HP PRN for SEVERE PAIN (PS 8-10) . Naproxen Sodium (Aleve) 220 Mg Tablet, 440 MG PO BID PRN for MILD PAIN (PS 1-4), (Reported) Ondansetron (Ondansetron Odt) 4 Mg Tab.rapdis, 4 MG PO Q8HP PRN for nausea/vomiting Allergies Coded Allergies: morphine (Verified Adverse Reaction, Intermediate, Chest tightness, Chest pain , 04/09/21) GME ATTESTATION GME ATTESTATION My faculty preceptor for this patient encounter was physically present during t he encounter and was fully available. All aspects of the patient interview, examination, medical decision making process, and medical care plan development were reviewed and approved by the faculty preceptor. The faculty preceptor is aware and concurs with the plan as stated in the body of this note and will attest to such by his/her cosignature. ATTENDING NOTE I, Salvatore Maher, have independently examined this patient and performed my own physical exam, as well as reviewed the documentation and edited where necessary with the resident. For medical students we have performed the physical exam together and discussed medical decision making and I have verified the history. I have discussed in detail with the resident / student the findings and plan of treatment as documented by the resident / student and edited their note. I agree with their findings and treatment plan and have edited their documentation. I will continue to follow the patient during this hospital stay. Time spent on discharge 35 minutes GIDEON SMITH DO Jun 15, 2021 13:39 SALVATORE MAHER MD Jun 15, 2021 15:00
[2021-06-15] MEDS ORDERED: metroNIDAZOLE (FLAGYL) 500MG TABLET PO SCH (14:00)
[2021-06-15] MEDS ORDERED: CIPROFLOXACIN 500MG TABLET PO SCH (18:00)
== END 2021-06-15 13:44 | disposition home or self-care (01) | DRG 244 ==
LOC: M ED 18:54 → M ED INP 06-12 01:08 → ENRESERV 06-12 13:10 → M MSPAV 06-12 13:45
PROVIDERS: ADMIT Internal Medicine; ATTEND Internal Medicine
DX: K57.20 Diverticulitis of large intestine with perforation and abscess without bleeding (principal); E66.9 Obesity, unspecified; M54.50 Low back pain, unspecified; G89.29 Other chronic pain; D64.9 Anemia, unspecified; Z88.5 Allergy status to narcotic agent; Z20.822 Contact with and (suspected) exposure to COVID-19; F17.210 Nicotine dependence, cigarettes, uncomplicated; F12.10 Cannabis abuse, uncomplicated; Z68.36 Body mass index [BMI] 36.0-36.9, adult; R07.89 Other chest pain

== ENCOUNTER → 2021-07-29 | Outpatient (CLI) | payer OTHER ==
[~2021-07-29] MED LIST changes: +ACET500T15 PO; +ALEV220T22 PO; +CIPR750T2 PO; +DICY1CAP8 PO; +HAIR1CHW2 PO; +HYDR-3715 PO; +META28.32 PO; +METR-265 PO; +ONDA4TAB6 PO; +RISATAB3 PO; +VITMTA PO
== END ==
LOC: M LABSMTC 09:40
PROVIDERS: ATTEND Anesthesiology
DX: Z01.812 Encounter for preprocedural laboratory examination (principal); Z20.822 Contact with and (suspected) exposure to COVID-19

== ENCOUNTER → 2021-07-29 | Outpatient (CLI) | payer OTHER ==
[2021-07-29 17:11] LABS: BLOOD UREA NITROGEN 12 MG/DL (7-18); CALCIUM LEVEL 9.1 MG/DL (8.5-10.1); CARBON DIOXIDE LEVEL 27 MEQ/L (21-32); CHLORIDE LEVEL 109 MEQ/L (98-107); CREATININE FOR GFR 0.68 MG/DL (0.55-1.30); GLOMERULAR FILTRATION RATE > 60.0 (>58); GLUCOSE, FASTING 104 MG/DL (70-100); POTASSIUM SERUM 4.3 MEQ/L (3.5-5.1); SODIUM LEVEL 139 MEQ/L (136-145)
[2021-07-29 17:13] LABS: BASO # 0.1 10^3/uL (0.0-0.2); BASO % 0.9 % (0.0-1.0); EOS # 0.1 10^3/uL (0.0-0.5); EOS % 1.9 % (0.0-3.0); HEMATOCRIT 39.8 % (36.0-47.0); HEMOGLOBIN 12.7 g/dl (12.0-15.5); LYMPH % 26.6 % (24.0-44.0); MEAN CORPUSCULAR HGB CONC 31.9 g/dl (32.0-36.5); MEAN CORPUSCULAR VOLUME 97.1 fl (80.0-96.0); MONO # 0.7 10^3/uL (0.0-0.8); MONO % 9.8 % (2.0-8.0); NEUTROPHILS # 4.5 10^3/uL (1.5-8.5); NEUTROPHILS % 60.5 % (36.0-66.0); PLATELET COUNT, AUTOMATED 326 10^3/uL (150-450); WHITE BLOOD COUNT 7.4 10^3/uL (4.0-10.0)
== END ==
LOC: M WUC 10:58
PROVIDERS: ATTEND Physician Assistant
DX: K57.30 Diverticulosis of large intestine without perforation or abscess without bleeding (principal)

== ENCOUNTER 2021-08-02 06:02 | Inpatient (IN) | payer OTHER ==
[~2021-08-02] VITALS: Ht 160 cm; Wt 95.0 kg
[~2021-08-02 06:02] MED LIST changes: +CelecoXIB 400 MG CAP PO ONE; +HEPARIN SOD (PORCINE) 5000UNITS/ML 1ML VIAL/SYRINGE SQ ONE; +LR 1,000 ML IV ONE; +cefoTEtan DISODIUM 2 GM in D5W MINI-BAG PLUS 50 ML IV ONE; +metroNIDAZOLE 500 MG in IV 1 EA IV ONE
[2021-08-02] MEDS ORDERED: MIDAZOLAM INJ 2MG/2ML VIAL (J2250 PER 1MG) As Ordered ONE (06:55)
[2021-08-02] MEDS ORDERED: fentaNYL 250 MCG/5 ML INJECTION (J3010) As Ordered ONE (06:55)
[2021-08-02] MEDS ORDERED: ePHEDrine SULFATE 25 MG/5 ML(5MG/ML) SYRINGE As Ordered ONE (06:56)
[2021-08-02] MEDS ORDERED: PHENYLephrine 500MCG 5ML (100MCG/ML) SYRINGE As Ordered ONE (06:56)
[2021-08-02] MEDS ORDERED: SUGAMMADEX SODIUM 500 MG/5 ML VIAL (BRIDION) As Ordered ONE (06:57)
[2021-08-02] MEDS ORDERED: ROCURONIUM BROMIDE 50 MG/5 ML VIAL As Ordered ONE ×3 (06:57→09:35)
[2021-08-02] MEDS ORDERED: ONDANSETRON 4MG/2ML VIAL As Ordered ONE (06:57)
[2021-08-02] MEDS ORDERED: propofoL 200 MG/20 ML VIAL As Ordered ONE ×2 (06:57→12:15)
[2021-08-02] MEDS ORDERED: LIDOCAINE 2% 100MG/5ML SDV (FOR ANES.) As Ordered ONE (06:57)
[2021-08-02] MEDS ORDERED: dexameTHASONE 4 MG/ML 1ML VIAL (J1100 PER 1MG) As Ordered ONE (06:57)
[2021-08-02] MEDS ORDERED: METR-265 PO (07:04)
[2021-08-02] MEDS ORDERED: NEOM500T PO (07:04)
[2021-08-02] MEDS ORDERED: LIDOCAINE 1% SDV 30ML VIAL As Ordered ONE (07:16)
[2021-08-02] MEDS ORDERED: BUPIVACAINE HCL 0.25% 10ML VIAL As Ordered ONE (07:16)
[2021-08-02] MEDS ORDERED: BUPIVACAINE LIPOSOME/PF 1.3% 20ML VIAL (13.3MG/ML)(EXPAREL)(C9290 PER1MG) As Ordered ONE (07:16)
[2021-08-02] MEDS ORDERED: BUPIVACAINE HCL 0.25% 30ML VIAL As Ordered ONE (07:16)
[2021-08-02] MEDS ORDERED: ACETAMINOPHEN 1000MG 100ML IV BTL (OFIRMEV) (J0131 PER 10MG) As Ordered ONE (07:58)
[2021-08-02] MEDS ORDERED: hydrALAZINE 20MG/ML 1ML VIAL (J0360 PER 20MG) As Ordered ONE (08:58)
[2021-08-02] MEDS ORDERED: fentaNYL 100 MCG/2 ML INJECTION (J3010) As Ordered ONE (11:49)
[2021-08-02] MEDS ORDERED: PERCOCET 5MG/325MG TAB PO PRN ×2 (12:15)
[2021-08-02] MEDS ORDERED: MORPHINE 2 MG/ML 1ML VIAL (J2270) IV PRN (12:15)
[2021-08-02] MEDS ORDERED: ACETAMINOPHEN TAB 650MG DOSE (2X325MG) PO PRN (12:15)
[2021-08-02] MEDS ORDERED: METOCLOPRAMIDE INJ 10MG/2ML VIAL (J2765 PER 1) As Ordered ONE (12:51)
[2021-08-02] MEDS ORDERED: oxyCODONE 5MG TAB PO PRN (13:00)
[2021-08-02] MEDS ORDERED: fentaNYL 100 MCG/2 ML INJECTION (J3010) IV PRN (13:00)
[2021-08-02] MEDS ORDERED: METOCLOPRAMIDE INJ 10MG/2ML VIAL (J2765 PER 1) IV PRN (13:00)
[2021-08-02] MEDS ORDERED: ONDANSETRON 4MG/2ML VIAL IV PRN (13:00)
[2021-08-02] MEDS ORDERED: HYDROMORPHONE HCL 0.5 MG/ 0.5 ML SYRINGE (J1170 PER 1) IV PRN (13:00)
[2021-08-02] MEDS ORDERED: LR 1,000 ML IV SCH (13:00)
[2021-08-02] MEDS: ONDANSETRON 4MG/2ML VIAL IV PRN (13:05)
[2021-08-02] MEDS ORDERED: PROMETHAZINE INJ 25 MG/ML VIAL (J2550) IV ONE (13:45)
[2021-08-02 15:15] VITALS: BP 124/74
[2021-08-02] MEDS: KETOROLAC 30 MG/ML 1ML VIAL IV SCH ×2 (15:23→19:36)
[2021-08-02] MEDS: LR 1,000 ML IV SCH ×2 (15:37→21:40)
[2021-08-02 15:45] VITALS: BP 135/79
[2021-08-02 16:15] VITALS: BP 127/87
[2021-08-02 17:15] VITALS: BP 115/65
[2021-08-02 18:15] VITALS: BP 133/74
[2021-08-02] MEDS ORDERED: NORCO, ANEXSIA 5/325MG TABLET (HYDROcodone/ACETAMINOPHEN) PO PRN ×2 (20:00)
[2021-08-02] MEDS: LACTOBACILLUS ACIDOPHILUS CAP (BACID) PO SCH (20:17)
[2021-08-02] MEDS: HEPARIN SOD (PORCINE) 5000UNITS/ML 1ML VIAL/SYRINGE SC SCH (20:48)
[2021-08-02 22:00] VITALS: BP 121/73
[2021-08-03] MEDS: KETOROLAC 30 MG/ML 1ML VIAL IV SCH ×4 (01:55→20:23)
[2021-08-03 02:00] VITALS: BP 108/60
[2021-08-03] MEDS: HEPARIN SOD (PORCINE) 5000UNITS/ML 1ML VIAL/SYRINGE SC SCH ×3 (05:21→20:23)
[2021-08-03] MEDS: LR 1,000 ML IV SCH (05:21)
[2021-08-03 06:00] VITALS: BP 110/59
[2021-08-03 07:09] LABS: BASO % 0.3 % (0.0-1.0); EOS % 0.1 % (0.0-3.0); HEMATOCRIT 32.9 % (36.0-47.0); HEMOGLOBIN 10.8 g/dl (12.0-15.5); LYMPH # 1.5 10^3/uL (1.5-5.0); MEAN CORPUSCULAR HEMOGLOBIN 30.7 pg (27.0-33.0); MEAN CORPUSCULAR HGB CONC 32.8 g/dl (32.0-36.5); MEAN CORPUSCULAR VOLUME 93.5 fl (80.0-96.0); MONO # 1.1 10^3/uL (0.0-0.8); MONO % 9.4 % (2.0-8.0); NEUTROPHILS # 8.8 10^3/uL (1.5-8.5); NEUTROPHILS % 76.8 % (36.0-66.0); PLATELET COUNT, AUTOMATED 283 10^3/uL (150-450); RED BLOOD COUNT 3.52 10^6/uL (4.00-5.40); WHITE BLOOD COUNT 11.4 10^3/uL (4.0-10.0)
[2021-08-03 07:30] LABS: BLOOD UREA NITROGEN 8 MG/DL (7-18); CALCIUM LEVEL 8.1 MG/DL (8.5-10.1); CARBON DIOXIDE LEVEL 22 MEQ/L (21-32); CHLORIDE LEVEL 114 MEQ/L (98-107); CREATININE FOR GFR 0.59 MG/DL (0.55-1.30); GLOMERULAR FILTRATION RATE > 60.0 (>58); GLUCOSE, FASTING 95 MG/DL (70-100); POTASSIUM SERUM 3.6 MEQ/L (3.5-5.1); SODIUM LEVEL 142 MEQ/L (136-145)
[2021-08-03] MEDS: LACTOBACILLUS ACIDOPHILUS CAP (BACID) PO SCH ×2 (09:27→20:23)
[2021-08-03 10:00] VITALS: BP 135/82
[2021-08-03] MEDS: ONDANSETRON 4MG/2ML VIAL IV PRN (13:17)
[2021-08-03 14:00] VITALS: BP 90/40
[2021-08-03 14:45] VITALS: BP 116/66
[2021-08-03 22:10] VITALS: BP 108/72
[2021-08-04] MEDS: KETOROLAC 30 MG/ML 1ML VIAL IV SCH ×3 (02:16→13:19)
[2021-08-04] MEDS: HEPARIN SOD (PORCINE) 5000UNITS/ML 1ML VIAL/SYRINGE SC SCH ×2 (05:19→13:19)
[2021-08-04 06:00] VITALS: BP 128/74
[2021-08-04 07:01] LABS: BASO # 0.1 10^3/uL (0.0-0.2); BASO % 0.5 % (0.0-1.0); EOS # 0.1 10^3/uL (0.0-0.5); EOS % 0.8 % (0.0-3.0); HEMATOCRIT 32.8 % (36.0-47.0); HEMOGLOBIN 10.7 g/dl (12.0-15.5); LYMPH # 1.7 10^3/uL (1.5-5.0); LYMPH % 18.9 % (24.0-44.0); MEAN CORPUSCULAR HEMOGLOBIN 31.2 pg (27.0-33.0); MEAN CORPUSCULAR HGB CONC 32.6 g/dl (32.0-36.5); MEAN CORPUSCULAR VOLUME 95.6 fl (80.0-96.0); MONO # 0.9 10^3/uL (0.0-0.8); MONO % 10.2 % (2.0-8.0); NEUTROPHILS # 6.3 10^3/uL (1.5-8.5); NEUTROPHILS % 69.4 % (36.0-66.0); PLATELET COUNT, AUTOMATED 249 10^3/uL (150-450); RED BLOOD COUNT 3.43 10^6/uL (4.00-5.40); WHITE BLOOD COUNT 9.1 10^3/uL (4.0-10.0)
[2021-08-04 07:31] LABS: BLOOD UREA NITROGEN 7 MG/DL (7-18); C REACTIVE PROTEIN QUANTITATIV 2.28 MG/DL (0.00-0.30); CALCIUM LEVEL 8.5 MG/DL (8.5-10.1); CARBON DIOXIDE LEVEL 24 MEQ/L (21-32); CHLORIDE LEVEL 112 MEQ/L (98-107); CREATININE FOR GFR 0.56 MG/DL (0.55-1.30); GLOMERULAR FILTRATION RATE > 60.0 (>58); GLUCOSE, FASTING 92 MG/DL (70-100); POTASSIUM SERUM 4.1 MEQ/L (3.5-5.1); SODIUM LEVEL 141 MEQ/L (136-145)
[2021-08-04] MEDS: LACTOBACILLUS ACIDOPHILUS CAP (BACID) PO SCH (08:26)
[2021-08-04 14:00] VITALS: BP 118/64
[2021-08-04] MEDS ORDERED: HYDR-3715 PO (17:31)
== END 2021-08-04 18:15 | disposition home or self-care (01) | DRG 221 ==
LOC: M OR 06:02 → M MS5PR 15:03
PROVIDERS: ADMIT Surgery; ATTEND Surgery
PROC: 8E0W4CZ Robotic Assisted Procedure of Trunk Region, Percutaneous Endoscopic Approach (ICD-10-PCS; 2021-08-02)
PROC: 0DBN4ZZ Excision of Sigmoid Colon, Percutaneous Endoscopic Approach (ICD-10-PCS; principal; 2021-08-02 07:30)
DX: K57.92 Diverticulitis of intestine, part unspecified, without perforation or abscess without bleeding (principal); F17.210 Nicotine dependence, cigarettes, uncomplicated; Z79.899 Other long term (current) drug therapy; G43.909 Migraine, unspecified, not intractable, without status migrainosus; M54.9 Dorsalgia, unspecified; Z90.49 Acquired absence of other specified parts of digestive tract

== ENCOUNTER 2022-09-12 09:36 | Emergency (ER) | payer MEDICAID, OTHER ==
[~2022-09-12] VITALS: Ht 160 cm; Wt 95.0 kg
[~2022-09-12 09:36] MED LIST changes: -CelecoXIB 400 MG CAP PO ONE; -HEPARIN SOD (PORCINE) 5000UNITS/ML 1ML VIAL/SYRINGE SQ ONE; -LR 1,000 ML IV ONE; +NEOM500T PO; -cefoTEtan DISODIUM 2 GM in D5W MINI-BAG PLUS 50 ML IV ONE; -metroNIDAZOLE 500 MG in IV 1 EA IV ONE
[2022-09-12 09:37] VITALS: BP 142/82
[2022-09-12 10:10] LABS: BASO # 0.1 10^3/uL (0.0-0.2); BASO % 0.6 % (0.0-1.0); EOS # 0.2 10^3/uL (0.0-0.5); EOS % 1.7 % (0.0-3.0); HEMATOCRIT 40.1 % (36.0-47.0); HEMOGLOBIN 13.1 g/dl (12.0-15.5); LYMPH % 20.7 % (24.0-44.0); MEAN CORPUSCULAR HEMOGLOBIN 31.4 pg (27.0-33.0); MEAN CORPUSCULAR HGB CONC 32.7 g/dl (32.0-36.5); MEAN CORPUSCULAR VOLUME 96.2 fl (80.0-96.0); MONO # 0.8 10^3/uL (0.0-0.8); MONO % 8.7 % (2.0-8.0); NEUTROPHILS # 6.5 10^3/uL (1.5-8.5); NEUTROPHILS % 68.1 % (36.0-66.0); PLATELET COUNT, AUTOMATED 351 10^3/uL (150-450); RED BLOOD COUNT 4.17 10^6/uL (4.00-5.40); WHITE BLOOD COUNT 9.5 10^3/uL (4.0-10.0)
[2022-09-12 10:38] LABS: LIPASE 34 U/L (12-53)
[2022-09-12 10:44] LABS: ALBUMIN 3.6 G/DL (3.2-5.2); ALKALINE PHOSPHATASE 76 U/L (46-116); ALT/SGPT 19 U/L (7.0-40); AST/SGOT 19 U/L (<34); BILIRUBIN,DIRECT < 0.1 MG/DL (<0.4); BILIRUBIN,TOTAL 0.2 MG/DL (0.3-1.2); BLOOD UREA NITROGEN 14 MG/DL (9-23); CALCIUM LEVEL 8.9 MG/DL (8.5-10.1); CARBON DIOXIDE LEVEL 24 MMOL/L (20-31); CHLORIDE LEVEL 109 MMOL/L (98-107); CREATININE FOR GFR 0.67 MG/DL (0.55-1.30); GLOMERULAR FILTRATION RATE > 60.0 (>58); GLUCOSE, FASTING 136 MG/DL (60-100); POTASSIUM SERUM 4.6 MMOL/L (3.5-5.1); SODIUM LEVEL 138 MMOL/L (136-145); TOTAL PROTEIN 6.4 G/DL (5.7-8.2)
[2022-09-12] MEDS ORDERED: ONDA4TAB6 PO (13:31)
== END 2022-09-12 13:55 | disposition home or self-care (01) ==
LOC: M ED 09:36
DX: N83.201 Unspecified ovarian cyst, right side (principal); K57.92 Diverticulitis of intestine, part unspecified, without perforation or abscess without bleeding; F17.200 Nicotine dependence, unspecified, uncomplicated; F12.10 Cannabis abuse, uncomplicated; Z88.5 Allergy status to narcotic agent

== ENCOUNTER → 2022-10-01 | Outpatient (CLI) | payer MEDICAID, OTHER | LOC: M RAD 09:58 | PROVIDERS: ATTEND Specialist | DX: N83.201 Unspecified ovarian cyst, right side (principal) ==

== ENCOUNTER 2023-02-13 08:08 | Day surgery (SDC) | payer MEDICAID, OTHER ==
[~2023-02-13] VITALS: Ht 160 cm; Wt 97.9 kg
[~2023-02-13 08:08] MED LIST changes: +GABA-282 PO; +LIDOCAINE 2% 100MG/5ML SDV (FOR ANES.) As Ordered ONE; +MIDAZOLAM INJ 2MG/2ML VIAL As Ordered ONE; +fentaNYL 100 MCG/2 ML INJECTION As Ordered ONE; +propofoL 200 MG/20 ML VIAL As Ordered ONE
[2023-02-13] MEDS ORDERED: LR 1,000 ML IV SCH ×2 (08:50→11:25)
[2023-02-13 09:09] LABS: HEMATOCRIT 40.1 % (36.0-47.0); HEMOGLOBIN 13.3 g/dl (12.0-15.5); MEAN CORPUSCULAR HEMOGLOBIN 31.3 pg (27.0-33.0); MEAN CORPUSCULAR HGB CONC 33.2 g/dl (32.0-36.5); MEAN CORPUSCULAR VOLUME 94.4 fl (80.0-96.0); PLATELET COUNT, AUTOMATED 346 10^3/uL (150-450); RED BLOOD COUNT 4.25 10^6/uL (4.00-5.40); WHITE BLOOD COUNT 9.5 10^3/uL (4.0-10.0)
[2023-02-13] MEDS ORDERED: propofoL 200 MG/20 ML VIAL As Ordered ONE (09:19)
[2023-02-13] MEDS ORDERED: ROCURONIUM BROMIDE 50MG/5ML VIAL As Ordered ONE (09:20)
[2023-02-13] MEDS ORDERED: LIDOCAINE 2% 100MG/5ML SDV (FOR ANES.) As Ordered ONE (09:20)
[2023-02-13] MEDS ORDERED: SCOPOLAMINE 1MG TRANSDERMAL PATCH TOP ONE (09:50)
[2023-02-13] MEDS ORDERED: ACETAMINOPHEN 1000MG 100ML IV BAG As Ordered ONE (10:38)
[2023-02-13] MEDS ORDERED: KETOROLAC 60MG 2ML VIAL As Ordered ONE (10:38)
[2023-02-13] MEDS ORDERED: ONDANSETRON 4MG 2ML VIAL As Ordered ONE (10:38)
[2023-02-13] MEDS ORDERED: PHENYLephrine 500MCG 5ML (100MCG/ML) SYRINGE As Ordered ONE (10:39)
[2023-02-13] MEDS ORDERED: fentaNYL 100 MCG/2 ML INJECTION As Ordered ONE (10:50)
[2023-02-13] MEDS ORDERED: SUGAMMADEX SODIUM 500 MG/5 ML VIAL (BRIDION) As Ordered ONE (11:03)
[2023-02-13] MEDS ORDERED: diphenhydrAMINE 50MG/ML VIAL As Ordered ONE (11:10)
[2023-02-13] MEDS ORDERED: ONDANSETRON 4MG 2ML VIAL IV PRN (11:25)
[2023-02-13] MEDS ORDERED: fentaNYL 100 MCG/2 ML INJECTION IV PRN (11:25)
[2023-02-13] MEDS ORDERED: oxyCODONE 5MG TAB PO PRN (11:25)
[2023-02-13] MEDS ORDERED: HYDROMORPHONE HCL 0.5 MG/ 0.5 ML SYRINGE IV PRN (11:25)
[2023-02-13] MEDS ORDERED: OXYC1TAB23 PO (11:53)
[2023-02-13] MEDS ORDERED: IBUP-1022 PO (11:54)
[2023-02-13] MEDS ORDERED: PERCOCET 5MG/325MG TAB PO PRN (12:40)
[2023-02-13 13:07] VITALS: BP 126/93; TEMP 97.6; O2SAT 94
== END 2023-02-13 13:10 | disposition home or self-care (01) ==
LOC: M SDC 08:08
PROVIDERS: ATTEND Specialist
DX: N83.201 Unspecified ovarian cyst, right side (principal); J45.909 Unspecified asthma, uncomplicated; Z79.899 Other long term (current) drug therapy; F17.210 Nicotine dependence, cigarettes, uncomplicated; K57.92 Diverticulitis of intestine, part unspecified, without perforation or abscess without bleeding; K21.9 Gastro-esophageal reflux disease without esophagitis
CPT/HCPCS: 36415; 58661; 85027; 88305; J0131; J0665; J1100; J1200; J1885; J2250; J2371; J2405; J3010

== ENCOUNTER → 2025-02-10 | Outpatient (REF) | payer OTHER, BC ==
[~2025-02-10] MED LIST changes: +GABA-1172; +GABA-1172 PO; -GABA-282; -GABA-282 PO; +IBUP-1022 PO; -LIDOCAINE 2% 100MG/5ML SDV (FOR ANES.) As Ordered ONE; -MIDAZOLAM INJ 2MG/2ML VIAL As Ordered ONE; +ONDA-282 PO; -ONDA4TAB6 PO; +OXYC1TAB23 PO; -fentaNYL 100 MCG/2 ML INJECTION As Ordered ONE; -propofoL 200 MG/20 ML VIAL As Ordered ONE
[2025-02-10 12:52] LABS: TOTAL 25(OH) VITAMIN D 33.7 NG/ML (20.0-100.0)
[2025-02-10 12:54] LABS: ALT/SGPT 18 U/L (7.0-40); AST/SGOT 19 U/L (<34); CALCIUM LEVEL 9.3 MG/DL (8.5-10.1); CARBON DIOXIDE LEVEL 24 MMOL/L (20-31); CHLORIDE LEVEL 106 MMOL/L (98-107); CHOLESTEROL LEVEL 259 MG/DL (<200); CHOLESTEROL RISK RATIO 5.53 (<5); CREATININE FOR GFR 0.74 MG/DL (0.55-1.30); GLOMERULAR FILTRATION RATE > 90.0 (>58); LDL CHOLESTEROL 185.6 MG/DL (<100); NON-HDL-C 212.2 MG/DL; POTASSIUM SERUM 4.6 MMOL/L (3.5-5.1); SODIUM LEVEL 141 MMOL/L (136-145); TRIGLYCERIDES LEVEL 133 MG/DL (<150)
[2025-02-10 12:55] LABS: ESTIMATED AVERAGE GLUCOSE 105.0 MG/DL (60-110)
== END ==
LOC: M LAB REF 12:09
PROVIDERS: ATTEND Student in an Organized Health Care Education/Training Program
DX: E55.9 Vitamin D deficiency, unspecified (principal); E66.9 Obesity, unspecified

== ENCOUNTER → 2025-05-26 | Outpatient (REF) | payer BC ==
[~2025-05-26] MED LIST changes: -IBUP-1022 PO; +IBUP600T42 PO
[2025-05-26 14:16] LABS: ALT/SGPT 15 U/L (7.0-40); AST/SGOT 12 U/L (<34); CALCIUM LEVEL 9.3 MG/DL (8.5-10.1); CARBON DIOXIDE LEVEL 22 MMOL/L (20-31); CHLORIDE LEVEL 112 MMOL/L (98-107); CHOLESTEROL LEVEL 179 MG/DL (<200); CHOLESTEROL RISK RATIO 4.52 (<5); CREATININE FOR GFR 0.79 MG/DL (0.55-1.30); GLOMERULAR FILTRATION RATE > 90.0 (>58); LDL CHOLESTEROL 114.2 MG/DL (<100); NON-HDL-C 139.4 MG/DL; POTASSIUM SERUM 4.4 MMOL/L (3.5-5.1); SODIUM LEVEL 141 MMOL/L (136-145); TRIGLYCERIDES LEVEL 126 MG/DL (<150)
== END ==
LOC: M LAB REF 12:28
PROVIDERS: ATTEND Student in an Organized Health Care Education/Training Program
DX: E78.5 Hyperlipidemia, unspecified (principal)

== ENCOUNTER → 2025-06-02 | Outpatient (REF) | payer BC ==
[2025-06-02 14:44] LABS: BASO # 0.1 10^3/uL (0.0-0.2); BASO % 1.0 % (0.0-1.0); EOS # 0.1 10^3/uL (0.0-0.5); EOS % 1.9 % (0.0-3.0); LYMPH # 1.7 10^3/uL (1.5-5.0); LYMPH % 24.8 % (24.0-44.0); MONO # 0.6 10^3/uL (0.0-0.8); MONO % 8.5 % (2.0-8.0); NEUTROPHILS # 4.3 10^3/uL (1.5-8.5); NEUTROPHILS % 63.7 % (36.0-66.0); PLATELET COUNT, AUTOMATED 333 10^3/uL (150-450)
[2025-06-02 14:51] LABS: ALT/SGPT 11 U/L (7.0-40); AST/SGOT 14 U/L (<34); CALCIUM LEVEL 8.8 MG/DL (8.5-10.1); CARBON DIOXIDE LEVEL 25 MMOL/L (20-31); CHLORIDE LEVEL 108 MMOL/L (98-107); CREATININE FOR GFR 0.77 MG/DL (0.55-1.30); GLOMERULAR FILTRATION RATE > 90.0 (>58); IRON (FE) 38 UG/DL (50-170); PERCENT SATURATION 11.5 % (13.2-45.0); POTASSIUM SERUM 4.4 MMOL/L (3.5-5.1); SODIUM LEVEL 139 MMOL/L (136-145)
== END ==
LOC: M LAB REF 12:27
PROVIDERS: ATTEND Student in an Organized Health Care Education/Training Program
DX: N94.6 Dysmenorrhea, unspecified (principal)

== ENCOUNTER → 2025-07-13 | Outpatient (CLI) | payer BC | LOC: M WHC 06:39 | PROVIDERS: ATTEND Student in an Organized Health Care Education/Training Program | DX: N94.6 Dysmenorrhea, unspecified (principal); Z90.721 Acquired absence of ovaries, unilateral; R93.89 Abnormal findings on diagnostic imaging of other specified body structures ==